=== PATIENT | male | born 1940 | race Caucasian/White ===

== ENCOUNTER → 2016-08-12 | Outpatient (CLI) | payer OTHER ==
[~2016-08-12] MED LIST: AMLO-110 PO; ATEN50TA PO; ATEN50TA8 PO; BEE500CH2 PO; CLOP1TAB15 PO; CLOP1TAB5 PO; COEN10CA4 PO; CRAN1CAP15 PO; CYAN100T6 PO; FLUT0.15 NAE; ISOS120T5 PO; ISOS60TA25 PO; LANS30CA63 PO; LEUP30IN3 IM; LISI-729 PO; MULT-599 PO; NTRGSL/4 UT; OMEG10007 PO; OYST500T47 PO; PARO10TA3 PO; PYRI100T4 PO; ROSU40TA PO
[2016-08-12 11:07] LABS: BASO % 0.8 %; BASO ABS # 0.03 K/uL (0-0.2); COMPLETE YES; EOS % 5.3 %; IG% 0.3 %; LYMPH % 19.3 %; LYMPH ABS # 0.76 K/uL (1.2-3.4); MEAN CELL VOLUME 93.2 fL (80-100); MEAN CORPUSCULAR HEMOGLOBIN 30.7 pg (25-34); MEAN PLATELET VOLUME 10.5 fL (7.4-10.4); MONO % 11.7 %; NEUT % 62.6 %; PLATELET COUNT 145 K/uL (130-400); RED BLOOD COUNT 3.97 M/uL (4.7-6.1); WHITE BLOOD COUNT 3.94 K/uL (4.8-10.8)
[2016-08-12 11:22] LABS: ESTIMATED AVERAGE GLUCOSE 163 mg/dl; HA1C FLAG Normal (Normal)
[2016-08-12 11:38] LABS: ALT/SGPT 19 U/L (12-78); BLOOD UREA NITROGEN 18 mg/dl (7-18); BUN/CREATININE RATIO 14.8 (10-20); CALCIUM 8.5 mg/dl (8.5-10.1); CARBON DIOXIDE 23 mmol/L (21-32); CHLORIDE 109 mmol/L (98-107); CHOLESTEROL 161 mg/dl (0-200); GLUCOSE 165 mg/dl (70-99); POTASSIUM 3.6 mmol/L (3.5-5.1); SODIUM 141 mmol/L (136-145)
[2016-08-12 11:48] LABS: ALB/GLOB RATIO 1.1 (0.9-2); ALKALINE PHOSPHATASE 86 U/L (45-117); AST/SGOT 15 U/L (15-37); CHOLESTEROL/HDL RATIO 3.7; HDL CHOLESTEROL 44 mg/dl; LDL CHOLESTEROL CALCULATED 86 mg/dl; PROSTATE SPECIFIC ANTIGEN < 0.010 ng/ml (0.000-4.000); THYROID STIMULATING HORMONE 0.791 uIu/ml (0.300-4.500); TRIGLYCERIDES 156 mg/dl (0-150); VERY LOW DENSITY LIPOPROT CALC 31 mg/dl
== END | disposition home or self-care (01) ==
LOC: C.LAB1850 10:24
PROVIDERS: ATTEND Internal Medicine Cardiovascular Disease
DX: I25.119 Atherosclerotic heart disease of native coronary artery with unspecified angina pectoris (principal); I10 Essential (primary) hypertension; E78.5 Hyperlipidemia, unspecified; E11.9 Type 2 diabetes mellitus without complications; C61 Malignant neoplasm of prostate

== ENCOUNTER → 2016-10-08 | Day surgery (SDC) | payer OTHER ==
[2016-09-12 14:01] VITALS: Ht 180.3 cm; Wt 86.4 kg
[~2016-10-08] VITALS: Ht 180.3 cm; Wt 86.4 kg
[~2016-10-08] MED LIST changes: +500ML BSS 0.3ML EPI 1:1000PF IRRIG ONE; +ACETAMINOPHEN 325 MG TAB PO PRN; +AMVISC PLUS 0.8ML SYRINGE INT OCU ONE; -ATEN50TA PO; +AcetaZOLAMIDE 250 MG TAB PO SCH; +BETAXOLOL HCL 0.25% OP SUSP PER DROP CHARGE OPL SCH; +BRIMONIDINE TART 0.2% OP SOLN PER DROP CHARGE ONE; +BSS FLUSH ONE; -CLOP1TAB5 PO; +ENDOCOAT 0.85ML SYRINGE INT OCU ONE; +EpINEphrine INJ 1MG/ML AMP 1 MG/ML AMP ONE; -ISOS120T5 PO; +LACTATED RINGER'S 1000ML 500 ML IV SCH; -LANS30CA63 PO; +LIDOCAINE 4% OP SOLN DROP CHARGE ONE; +LIDOCAINE 4% OP SOLN DROP CHARGE OPL SCH; +LIDOCAINE HCL 1% MPF 2 ML VIAL ONE; +METOPROLOL TARTRATE 1 MG/ML VIAL ONE; +MIDAZOLAM HCL 1 MG/ML 2ML VIAL ONE; +MIX: 4ML BSS 1ML EPI 1:1000 PF INSTIL ONE; +MOXIFLOXACIN OPH SOLN PER DROP CHARGE ONE; -MULT-599 PO; +OCUCOAT 1 ML SOLN IO ONE; +POVIDONE-IODINE OP SOLN 30 ML BTL ONE; +PROPARACAINE 0.5% OP SOLN PER DROP CHARGE OPL SCH; +PROPARACAINE 0.5% OP SOLN PER DROP CHARGE OPR SCH; +PROPARACAINE HCL 0.5% OP SOLN 15 ML BTL OPL ONE; -PYRI100T4 PO; +TOBRAMYCIN/DEXAMETHASONE OPH OINT PER APPLN CHARGE ONE
--- NOTE | 2016-10-08 08:53 | History & Physical Bridge - [place] ---
H&P Re-Evaluation Bridge Note: I have examined the patient, reviewed the History & Physical and in the interval since the performance of the History & Physical I have noted the following changes of clinical significance: No changes noted
[2016-10-08] MEDS: PHENYLEPHRINE HCL 2.5% OP SOLN PER DROP CHARGE OPL SCH ×2 (10:07→10:12)
[2016-10-08] MEDS: TROPICAMIDE 1% OP SOLN PER DROP CHARGE OPL SCH ×2 (10:08→10:13)
[2016-10-08] MEDS: CYCLOPENTOLATE HCL 1% OP SOLN PER DROP CHARGE OPL SCH ×2 (10:09→10:14)
[2016-10-08] MEDS: MOXIFLOXACIN OPH SOLN PER DROP CHARGE OPL SCH ×2 (10:10→10:20)
--- NOTE | 2016-10-08 10:56 | Discharge Instructions-SurgCtr ---
Discharge Instructions Date of Service Oct 08, 2016. Visit Reason for Visit: Cataract Left Eye Discharge Discharge Diagnosis / Problem: lens implant left eye Discharge Goals Goal(s): Improve function Activity Recommendations Activity Limitations: resume your previous activity Lifting Limitations: no more than 10 pounds Exercise/Sports Limitations: gradually increase as tolerated May Resume Sexual Activity: when tolerated Shower/Bathe: tomorrow Driving or Machine Use: resume 1 day after discharge Anesthesia . Post Anesthesia Instructions: If you have had General Anesthesia or IV Sedation: * Do not drive today. * Resume driving when surgeon permits. * Do not make important decisions or sign legal documents today. * Call surgeon for: 1. Temperature elevations greater than 101 degrees F. 2. Uncontrollable pain. 3. Excessive bleeding. 4. Persistent nausea and vomiting. 5. Medication intolerance (nausea, vomiting or rash). * For nausea and vomiting use only clear liquids such as: tea, soda, bouillon until nausea subsides, then gradually increase diet as tolerated. * If you have any concerns or questions, call your surgeon's office. If physician is unavailable and it is an emergency, call 911 or go to the nearest emergency room. . Instructions / Follow-Up Instructions / Follow-Up ACTIVITY RECOMMENDATIONS: * Light activities. * Mild irritation and blurred vision are common for the first few days. * You may walk outside, read, watch television. * Redness around the white part of the eye is common. MEDICATIONS: Resume previous medications unless instructed otherwise by your surgeon. * Take white Diamox (Acetazolamide) tablet at 1 pm today. Start all eye drops at 1 pm today: * Eye drops (today and tomorrow): Prednisone - one drop in operative eye every 3 hours while awake Ofloxacin - one drop in operative eye every 3 hours while awake SPECIAL CARE INSTRUCTIONS: * Tape plastic shield over eye to sleep at night. Call your doctor at with any concerns or problems. FOLLOW UP VISIT: Follow-up with Dr Perez at [place] office as scheduled. Diet Recommendations Home Diet: no limitations Procedures Procedures Performed: cataract extraction with lens implant Pending Studies Studies pending at discharge: no Medical Emergencies . Who to Call and When: Medical Emergencies: If at any time you feel your situation is an emergency, please call 911 immediately. . Non-Emergent Contact Non-Emergency issues call your: Invoice Clerk Call Non-Emergent contact if: your pain is not controlled [phone] . . "Provider Documentation" section prepared by Igor Perez. .
[2016-10-08 11:01] VITALS: TEMP 36.2
--- NOTE | 2016-10-08 11:02 | [facility] Operative Report ---
Operative Report Date of Service Oct 08, 2016. Operative Report 1. PREOPERATIVE DIAGNOSIS: Senile nuclear cataract, left eye. 2. POSTOPERATIVE DIAGNOSIS: Senile nuclear cataract, left eye. 3. PROCEDURE: Phacoemulsification of left cataract with posterior chamber lens implant, type [employer]ch [employer] Lomb, model MX60, power +17.5 diopters. ANESTHESIA: Local standby. SURGEON: Dr. Perez. COMPLICATIONS: None. OPERATING TIME: 10 minutes. 4. OPERATION AND FINDINGS: DESCRIPTION OF PROCEDURE: The left pupil was dilated. The anesthetic was administered using a topical technique. The left eye was prepped and draped. The patient was transported to the Femto Laser room. The pupil did not dilated well and the laser did not dock well. The Femto Laser was cancelled. A conjunctival hemorrhage was noted. The patient was transported to the operating room. A speculum was placed. A clear corneal incision was formed. The chamber was filled with Amvisc Plus and Endocoat. Epinephrine solution was used. A paracentesis was placed. A capsulorrhexis was performed. The nucleus was hydrodissected. The lens was removed with phacoemulsification. Time was 4.91 seconds. The aspiration unit was used to remove the cortex. The capsule was filled with Amvisc Plus. The lens implant was folded and placed into the capsule. The incision was hydrated. A second astigmatic incision was placed 180 degrees from the original incision at the limbus. The incisions were hydrated. The Amvisc was aspirated. The wounds were secure. The chamber was deep. The pupil was round. TobraDex ointment and Vigamox solution were placed. The speculum was removed. The patient was returned to the Recovery Room in stable condition. I attest to the content of the Intraoperative Record and any orders documented therein. Any exceptions are noted below. The scribe's documentation has been prepared in my presence, under my direction and personally reviewed by me in its entirety. I confirm that the note above accurately reflects all work, treatment, procedures, and medical decision making performed by me. I personally scribed for Igor Perez M.D. ([email or web address]) on 10/08/16 at 11:02. Electronically submitted by Ana Laura Rothman ([email or web address]).
[2016-10-08 11:25] VITALS: BP 193/83; PULSE 52; O2SAT 97
--- NOTE | 2016-10-08 11:37 | Anesthesia Progress Nt - [facility] ---
Anesthesia Post Op Note Date & Time Oct 08, 2016 at 11:35 Vital Signs Pain Intensity: 4 Vital Signs Past 12 Hours Date Time Temp Pulse Resp B/P Pulse Ox O2 Delivery O2 Flow Rate FiO2 10/08/16 11:25 52 18 203/92 97 Room Air 193/83 10/08/16 11:01 36.2 54 18 169/80 95 Room Air 10/08/16 10:41 64 16 225/101 95 10/08/16 10:36 64 16 209/109 94 10/08/16 10:32 64 16 220/102 97 10/08/16 09:57 36.4 60 24 196/83 97 Room Air Notes Mental Status: alert / awake / arousable, participated in evaluation Pt Amnestic to Procedure: No (recall as expected) Nausea / Vomiting: adequately controlled Pain: adequately controlled Airway Patency, RR, SpO2: stable & adequate BP & HR: stable & adequate Hydration State: stable & adequate Anesthetic Complications: no major complications apparent BP elevated but improved from pre-op. We did give IV metoprolol as pt took none of his anti-hypertensive meds today, including his beta roberto. Pt told to go home and take his meds and f/u w/ PCP.
== END | disposition home or self-care (01) ==
LOC: X.SURG 09:43
PROVIDERS: ATTEND Specialist
DX: H25.12 Age-related nuclear cataract, left eye (principal); Z79.899 Other long term (current) drug therapy

== ENCOUNTER → 2016-10-22 | Day surgery (SDC) | payer OTHER ==
[2016-10-21 08:49] VITALS: Ht 180.3 cm; Wt 86.4 kg
[~2016-10-22] VITALS: Ht 180.3 cm; Wt 86.4 kg
[~2016-10-22] MED LIST changes: +ATROPINE SULFATE 0.1 MG/ML 5ML SYR IV PRN; -BETAXOLOL HCL 0.25% OP SUSP PER DROP CHARGE OPL SCH; +BETAXOLOL HCL 0.25% OP SUSP PER DROP CHARGE OPR SCH; +EpHEDrine SULFATE INJ 50 MG/ML AMP IV PRN; +FENTANYL CITRATE INJ 50 MCG/1 ML 2 ML VIAL IV PRN; -LIDOCAINE 4% OP SOLN DROP CHARGE OPL SCH; +LIDOCAINE 4% OP SOLN DROP CHARGE OPR SCH; -METOPROLOL TARTRATE 1 MG/ML VIAL ONE; +ONDANSETRON INJ 2 MG/ML 2 ML VIAL IV PRN; -PROPARACAINE 0.5% OP SOLN PER DROP CHARGE OPL SCH; -PROPARACAINE HCL 0.5% OP SOLN 15 ML BTL OPL ONE
[2016-10-22] MEDS: PHENYLEPHRINE HCL 2.5% OP SOLN PER DROP CHARGE OPR SCH ×2 (07:19→07:26)
[2016-10-22] MEDS: TROPICAMIDE 1% OP SOLN PER DROP CHARGE OPR SCH ×2 (07:23→07:27)
[2016-10-22] MEDS: CYCLOPENTOLATE HCL 1% OP SOLN PER DROP CHARGE OPR SCH ×2 (07:23→07:28)
[2016-10-22] MEDS: MOXIFLOXACIN OPH SOLN PER DROP CHARGE OPR SCH ×2 (07:24→07:30)
--- NOTE | 2016-10-22 08:17 | [facility] Post Operative Brief Note ---
Immediate Operative Summary Operative Date October 22, 2016. Pre-Operative Diagnosis Cataract Right Eye - Nuclear Post-Operative Diagnosis same Procedure(s) Performed Right Cataract Phacoemulsification With Intraocular Lens Implant Surgeon Dr Perez [employer] Surgeon(s) none Estimated Blood Loss 0 Fluids (cc crystalloids) 300 Specimens none Drains none Anesthesia L/S Complication(s) None Disposition Recovery Room / PACU
--- NOTE | 2016-10-22 08:19 | Discharge Instructions-SurgCtr ---
Discharge Instructions Date of Service October 22, 2016. Visit Reason for Visit: Right Cataract Discharge Discharge Diagnosis / Problem: Pseudophakia right eye Discharge Goals Goal(s): Improve function Activity Recommendations Activity Limitations: as noted below Lifting Limitations: no more than 10 pounds Exercise/Sports Limitations: as tolerated May Resume Sexual Activity: after one week Shower/Bathe: tomorrow Driving or Machine Use: resume 1 day after discharge As noted Anesthesia . Post Anesthesia Instructions: If you have had General Anesthesia or IV Sedation: * Do not drive today. * Resume driving when surgeon permits. * Do not make important decisions or sign legal documents today. * Call surgeon for: 1. Temperature elevations greater than 101 degrees F. 2. Uncontrollable pain. 3. Excessive bleeding. 4. Persistent nausea and vomiting. 5. Medication intolerance (nausea, vomiting or rash). * For nausea and vomiting use only clear liquids such as: tea, soda, bouillon until nausea subsides, then gradually increase diet as tolerated. * If you have any concerns or questions, call your surgeon's office. If physician is unavailable and it is an emergency, call 911 or go to the nearest emergency room. . Instructions / Follow-Up Instructions / Follow-Up ACTIVITY RECOMMENDATIONS: * Light activities. * Mild irritation and blurred vision are common for the first few days. * You may walk outside, read, watch television. * Redness around the white part of the eye is common. MEDICATIONS: Resume previous medications unless instructed otherwise by your surgeon. * Take white Diamox (Acetazolamide) tablet at 1 pm today. Start all eye drops at 1 pm today: * Eye drops (today and tomorrow): Prednisone - one drop in operative eye every 3 hours while awake Ofloxacin - one drop in operative eye every 3 hours while awake SPECIAL CARE INSTRUCTIONS: * Tape plastic shield over eye to sleep at night. Call your doctor at with any concerns or problems. FOLLOW UP VISIT: Follow-up with Dr Perez at [facility] as scheduled. Diet Recommendations Home Diet: no limitations Procedures Procedures Performed: Right Cataract Phacoemulsification With Intraocular Lens Implant Pending Studies Studies pending at discharge: no Medical Emergencies . Who to Call and When: Medical Emergencies: If at any time you feel your situation is an emergency, please call 911 immediately. . Non-Emergent Contact Non-Emergency issues call your: Purchasing [employer]ship Call Non-Emergent contact if: temperature is above 101 . . "Provider Documentation" section prepared by Igor Perez. .
[2016-10-22 08:21] VITALS: BP 193/84; PULSE 56; TEMP 36.5; O2SAT 97
--- NOTE | 2016-10-22 08:39 | Anesthesia Progress Nt - [facility] ---
Anesthesia Post Op Note Date & Time October 22, 2016 at 08:39 Vital Signs Pain Intensity: 0 Vital Signs Past 12 Hours Date Time Temp Pulse Resp B/P Pulse Ox O2 Delivery O2 Flow Rate FiO2 10/22/16 08:21 36.5 56 20 193/84 97 Room Air 10/22/16 07:29 178/77 10/22/16 07:20 197/86 10/22/16 07:12 36.3 51 18 200/85 99 Room Air Notes Mental Status: alert / awake / arousable, participated in evaluation Pt Amnestic to Procedure: Yes Nausea / Vomiting: adequately controlled Pain: adequately controlled Airway Patency, RR, SpO2: stable & adequate BP & HR: stable & adequate Hydration State: stable & adequate Anesthetic Complications: no major complications apparent
--- NOTE | 2016-10-22 09:01 | OPERATIVE REPORT ---
DATE OF OPERATION: 10/22/2016 PREOPERATIVE DIAGNOSIS: Senile nuclear cataract right eye. POSTOPERATIVE DIAGNOSIS: Same. PROCEDURE: Phacoemulsification of right cataract with posterior chamber lens implant. Type: B[employer]ch [employer] Lomb model MX60, power +17.50. ANESTHESIA: Local standby using 4% topical lidocaine. SURGEON: Dr. Perez. COMPLICATIONS: None. OPERATING TIME: 10 minutes. No blood loss. The patient was identified. The right pupil was dilated. The right eye was prepped and draped. A speculum was placed. A paracentesis was placed. The chamber was filled with Amvisc Plus and EndoCoat. A temporal clear corneal incision was formed. A capsulorrhexis was performed. The nucleus was hydrodissected. The lens was removed with phacoemulsification. Time was 5.08. The cortex was aspirated. The capsule was filled with Amvisc. The lens implant was inspected and folded and placed into the capsule. A second astigmatic incision was placed at the limbus 180 degrees apart from the original. The Amvisc was aspirated. The incisions were hydrated. The wounds were secure. The chamber was deep. The pupil was round. Brimonidine, TobraDex and Vigamox were placed. The speculum was removed. The eye did not require a patch. The patient was returned to the recovery room in good condition having tolerated the procedure well. I attest to the content of the Intraoperative Record and any orders documented therein. Any exceptions are noted below. MTDD
== END | disposition home or self-care (01) ==
LOC: X.SURG 06:53
PROVIDERS: ATTEND Specialist
DX: H25.11 Age-related nuclear cataract, right eye (principal)

== ENCOUNTER → 2017-03-30 | Outpatient (CLI) | payer OTHER ==
[~2017-03-30] MED LIST changes: -500ML BSS 0.3ML EPI 1:1000PF IRRIG ONE; -ACETAMINOPHEN 325 MG TAB PO PRN; -AMVISC PLUS 0.8ML SYRINGE INT OCU ONE; -ATROPINE SULFATE 0.1 MG/ML 5ML SYR IV PRN; -AcetaZOLAMIDE 250 MG TAB PO SCH; -BETAXOLOL HCL 0.25% OP SUSP PER DROP CHARGE OPR SCH; -BRIMONIDINE TART 0.2% OP SOLN PER DROP CHARGE ONE; -BSS FLUSH ONE; -ENDOCOAT 0.85ML SYRINGE INT OCU ONE; -EpHEDrine SULFATE INJ 50 MG/ML AMP IV PRN; -EpINEphrine INJ 1MG/ML AMP 1 MG/ML AMP ONE; -FENTANYL CITRATE INJ 50 MCG/1 ML 2 ML VIAL IV PRN; -LACTATED RINGER'S 1000ML 500 ML IV SCH; -LIDOCAINE 4% OP SOLN DROP CHARGE ONE; -LIDOCAINE 4% OP SOLN DROP CHARGE OPR SCH; -LIDOCAINE HCL 1% MPF 2 ML VIAL ONE; -MIDAZOLAM HCL 1 MG/ML 2ML VIAL ONE; -MIX: 4ML BSS 1ML EPI 1:1000 PF INSTIL ONE; -MOXIFLOXACIN OPH SOLN PER DROP CHARGE ONE; -OCUCOAT 1 ML SOLN IO ONE; -ONDANSETRON INJ 2 MG/ML 2 ML VIAL IV PRN; -POVIDONE-IODINE OP SOLN 30 ML BTL ONE; -PROPARACAINE 0.5% OP SOLN PER DROP CHARGE OPR SCH; -TOBRAMYCIN/DEXAMETHASONE OPH OINT PER APPLN CHARGE ONE
[2017-03-30 09:45] LABS: HEMATOCRIT 38.1 % (42-52); MEAN CELL VOLUME 91.4 fL (80-100); MEAN CORPUSCULAR HGB CONC 32.8 g/dl (32-36); MEAN PLATELET VOLUME 10.3 fL (7.4-10.4); PLATELET COUNT 154 K/uL (130-400); RED BLOOD COUNT 4.17 M/uL (4.7-6.1); WHITE BLOOD COUNT 3.86 K/uL (4.8-10.8)
[2017-03-30 10:09] LABS: ESTIMATED AVERAGE GLUCOSE 203 mg/dl; HA1C FLAG Normal (Normal)
[2017-03-30 10:16] LABS: ALT/SGPT 27 U/L (12-78); AST/SGOT 17 U/L (15-37); BLOOD UREA NITROGEN 21 mg/dl (7-18); BUN/CREATININE RATIO 13.9 (10-20); CALCIUM 8.6 mg/dl (8.5-10.1); CARBON DIOXIDE 25 mmol/L (21-32); CHLORIDE 108 mmol/L (98-107); CREATININE 1.51 mg/dl (0.60-1.40); GLUCOSE 166 mg/dl (70-99); POTASSIUM 3.8 mmol/L (3.5-5.1); SODIUM 141 mmol/L (136-145)
[2017-03-30 10:18] LABS: ALKALINE PHOSPHATASE 101 U/L (45-117)
== END | disposition home or self-care (01) ==
LOC: C.LAB1850 08:44
PROVIDERS: ATTEND Family Medicine
DX: E11.9 Type 2 diabetes mellitus without complications (principal)

== ENCOUNTER → 2017-10-22 | Outpatient (CLI) | payer OTHER ==
[2017-10-22 09:34] LABS: BASO % 0.8 %; BASO ABS # 0.03 K/uL (0-0.2); EOS % 7.7 %; EOS ABS # 0.28 K/uL (0-0.5); HEMATOCRIT 38.2 % (42-52); HEMOGLOBIN 12.2 g/dL (14.0-18.0); IG# 0.02 K/uL (0.00-0.02); LYMPH % 25.7 %; LYMPH ABS # 0.94 K/uL (1.2-3.4); MEAN CELL VOLUME 91.8 fL (80-100); MEAN CORPUSCULAR HEMOGLOBIN 29.3 pg (25-34); MEAN CORPUSCULAR HGB CONC 31.9 g/dl (32-36); MEAN PLATELET VOLUME 10.1 fL (7.4-10.4); MONO % 16.4 %; NEUT % 48.9 %; NEUT ABS # 1.79 K/uL (1.4-6.5); PLATELET COUNT 146 K/uL (130-400); RED CELL DISTRIBUTION WIDTH CV 14.7 % (11.5-14.5); RED CELL DISTRIBUTION WIDTH SD 49.9 fL (36.4-46.3); WHITE BLOOD COUNT 3.66 K/uL (4.8-10.8)
[2017-10-22 09:53] LABS: HEMOGLOBIN A1C 7.4 % (4.5-5.6)
[2017-10-22 10:06] LABS: ALBUMIN 3.2 gm/dl (3.4-5.0); ALT/SGPT 33 U/L (12-78); AST/SGOT 26 U/L (15-37); BLOOD UREA NITROGEN 23 mg/dl (7-18); CARBON DIOXIDE 24 mmol/L (21-32); CREATININE 1.36 mg/dl (0.60-1.40); GLUCOSE 165 mg/dl (70-99); SODIUM 140 mmol/L (136-145)
[2017-10-22 10:17] LABS: ALKALINE PHOSPHATASE 104 U/L (45-117); CHOLESTEROL 128 mg/dl (0-200); LDL CHOLESTEROL CALCULATED 63 mg/dl; TOTAL PROTEIN 6.8 gm/dl (6.4-8.2)
== END | disposition home or self-care (01) ==
LOC: C.LAB1850 08:07
PROVIDERS: ATTEND Internal Medicine Cardiovascular Disease
DX: C61 Malignant neoplasm of prostate (principal); I10 Essential (primary) hypertension; E11.9 Type 2 diabetes mellitus without complications

== ENCOUNTER 2021-03-10 12:52 | Inpatient (IN) ==
[2021-03-10] MEDS ORDERED: SODIUM CHLORIDE 0.9% 1000ML 1,000 ML IV ONE (14:05)
[2021-03-10] MEDS ORDERED: IPRATROPIUM BROMIDE/ALBUTEROL respimat INH INH STA (14:06)
[2021-03-10] MEDS ORDERED: guaiFENesin 600 MG TABCR PO STA (14:06)
[2021-03-10] MEDS ORDERED: dexAMETHasone**PF** 10 MG/ML VIAL IV ONE (14:07)
--- NOTE | 2021-03-10 14:32 | XRay Report ---
SINGLE VIEW CHEST CLINICAL HISTORY: Atypical chest pain. FINDINGS: An AP, portable, upright chest radiograph is compared to study dated 10/20/2015. The the barbara ent is status post midline sternotomy. The heart is enlarged noting atherosclerotic calcification of the thoracic aorta. There is pulmonary vascular congestion. There are bilateral airspace opacities wi th a lower lobe predominance. Chronic elevation of the right hemidiaphragm is similar to previous. No large pleural effusion or pneumothorax is seen. The skeletal structures are osteopenic. The bony tho rax is grossly intact. Calcific tendinopathy is noted in the right shoulder. IMPRESSION: 1. Cardiomegaly with pulmonary vascular congestion. 2. Bilateral airspace opacities could represent pulmonary edema and/or multifocal pneumonia. Clinical correlation will be required and radiographic follow-up to resolution is recommended. ACT 112: Negative or not required by law. Electronically signed by: Chan Brantley M.D. 03/10/2021 2:31 PM
[2021-03-10 14:38] LABS: Alanine Aminotransferase 46 U/L (12-78); Albumin Level 2.9 gm/dl (3.4-5.0); Aspartate Aminotransferase 58 U/L (15-37); BUN Creatinine Ratio 13.1 (10-20); Bilirubin Direct 0.2 mg/dl (0-0.2); Blood Urea Nitrogen 25 mg/dl (7-18); Calcium 7.9 mg/dl (8.5-10.1); Carbon Dioxide 21 mmol/L (21-32); Chloride 97 mmol/L (98-107); Creatinine Clr Calc Pharmacy 34.3 ml/min; Est GFR (African American) 36.3 ml/min; Est GFR (Non-African American) 31.3 ml/min; Glucose 170 mg/dl (70-99); Lipase 190 U/L (73-393); Magnesium 1.8 mg/dl (1.8-2.4); Sodium 128 mmol/L (136-145)
[2021-03-10 14:41] LABS: Albumin Globulin Ratio 0.7 (0.9-2); Alkaline Phosphatase 58 U/L (45-117); Bilirubin,Total 0.5 mg/dl (0.2-1); Globulin 3.9 gm/dl (2.5-4.0); NT Pro B Type Natriuretic Pept 356 pg/ml (0-1800); Phosphorus 3.3 mg/dl (2.5-4.9); Total Protein 6.8 gm/dl (6.4-8.2); Troponin I < 0.015 ng/ml (0-0.045)
[2021-03-10 14:54] LABS: Basophils # (auto) 0.01 K/uL (0-0.2); Basophils % (auto) 0.2 %; Echinocytes 1+; Hematocrit (blood only) 40.1 % (42-52); Hemoglobin 13.1 g/dL (14.0-18.0); Lymphocytes # (auto) 0.45 K/uL (1.2-3.4); Lymphocytes % (auto) 8.4 %; Mean Corpuscular Hemoglobin 31.3 pg (25-34); Mean Corpuscular Hgb Conc 32.7 g/dL (32-36); Mean Corpuscular Volume 95.7 fL (80-100); Monocytes # (auto) 0.48 K/uL (0.11-0.59); Neutrophils # (auto) 4.41 K/uL (1.4-6.5); Neutrophils % (auto) 82.4 %; Platelet Count 98 K/uL (130-400); Platelet Estimate Decreased (Normal); RDW Coefficient of Variation 14.4 % (11.5-14.5); RDW Standard Deviation 50.9 fL (36.4-46.3); Red Blood Count 4.19 M/uL (4.7-6.1); White Blood Count 5.35 K/uL (4.8-10.8)
--- NOTE | 2021-03-10 17:08 | Emergency Department Note ---
Impression & Plan Pneumonia due to COVID-19 virus, Hypoxia, Hyponatremia, CKD (chronic kidney disease) (Ruled Out): Heart murmur ED Provider Note NAME: SHAYLA MONTERROSO AGE: 80 SEX: M ARRIVES VIA: Walk-In INFORMANT: Patient, ED PROVIDER(S): Kel Aguero MD CHIEF COMPLAINT: Shortness of breath, cough PLAN: Disposition: Admit MEDICAL DECISION MAKING: The patient is a pleasant 80-year-old gentleman with a past medical history of CAD status post CABG, aortic stenosis, who presents to the emergency department accompanied by his for worsening cough, congestion shortness of breath over the past 4 days with body aches and feverishness. He reports he has felt a change in taste and smell. He has had a decreased appetite and oral intake related to this. He denies any known COVID-19 exposures. The patient and his are both not vaccinated. On arrival the patient is uncomfortable but no acute distress, afebrile with O2 saturation 88% on room air with mild increased work of breathing and vital signs otherwise stable. Plan placement on 2 L nasal cannula O2 saturation improved to low-mid 90s. Patient appears clinically dry. He has scant intermittent wheeze and rhonchi. EKG negative for acute cardiopulmonary process. Chest x-ray consistent with multifocal pneumonia. WBC 5.3 with lymphopenia to 0.45. H/H similar to prior. Platelets 98K, nonspecific. Creatinine 1.9 approximate to prior range of values. Sodium 128 with glucose 170. Chemistry without metabolic acidosis. AST 58 and ALT is otherwise unremarkable. Troponin negative/undetectable. BNP within limits. Lipase is not elevated. The patient's COVID-19 PCR was positive. Given the patient's COVID-19 pneumonia with hypoxia the patient and his are in agreement with plan for admission. He was treated with IV fluids, guaifenesin, dexamethasone, Combivent and and reported some improvement. Case was discussed with [place]. Gipson, [facility] [place], who will evaluate the patient for admission. Triage Nursing notes reviewed and agree them. Prior medical records reviewed Vital Signs: reviewed and remarkable for hypoxia. Differential diagnosis: Reactive airway disease, pneumonia, pneumothorax, COPD, CHF, infections, cardiac ischemia, pulmonary embolism, musculoskeletal, gastrointestinal, as well as other pathologies. ER treatment provided: See below. Diagnostics interpreted by me: ECG: Normal sinus rhythm, 66 bpm, no ectopy, no overt ST elevation or depression, QTC 425, QRS 94. Cardiac Monitoring: An order for continuous cardiac monitoring was placed and demonstrated Normal sinus rhythm, 66 bpm, no ectopy. Laboratory studies: See below Imaging studies: See below Consultation(s): Case was discussed with Dr. Gipson, [facility] [place], who will evaluate the patient for admission.one HPI: The patient is a pleasant 80-year-old gentleman with a past medical history of CAD status post CABG, aortic stenosis, who presents to the emergency department accompanied by his for worsening cough, congestion shortness of breath over the past 4 days with body aches and feverishness. He reports he has felt a change in taste and smell. He has had a decreased appetite and oral intake related to this. He denies any known COVID-19 exposures. The patient and his are both not vaccinated. ROS: See above HPI for pertinent positives & negatives. A total of 10 systems reviewed and were otherwise negative. PAST MEDICAL HISTORY:See Below PAST SURGICAL HISTORY:See Below FAMILY HISTORY:See Below SOCIAL HISTORY:See Below HOME MEDICATIONS:See Below ALLERGIES:See Below VITALS:See Below PHYSICAL EXAMINATION: GENERAL: Awake, alert, uncomfortable-appearing, in no distress HENT: Normocephalic, atraumatic. Oropharynx dry mucous membranes. EYES: Normal conjunctiva. Sclera non-icteric. NECK: Supple. No nuchal rigidity. FROM. No JVD. RESPIRATORY: Scant intermittent wheeze and rhonchi. Mildly dyspneic in no acute distress. CARDIAC: Regular rate, normal rhythm. Extremities warm and well perfused. Pulses equal. ABDOMEN: Soft, non-distended. No tenderness to palpation. No rebound or guarding. No masses. RECTAL: Deferred. MUSCULOSKELETAL: Chest examination reveals no tenderness. The back is symmetrical on inspection without obvious abnormality. There is no CVA tenderness to palpation. No joint edema. LOWER EXTREMITIES: Calves are equal size bilaterally and non-tender. No edema. No discoloration. NEURO: Normal sensorium. No sensory or motor deficits noted. SKIN: No rash or jaundice noted. Kel Aguero MD Past Med/Surg History Medical History Anemia Coronary artery disease Heart murmur Prostate cancer (03/15/15) "DIAGNOSIS: Prostate, adenocarcinoma, dmitriy 4 + 5, PSA 21.0, [id number], group IIB Rising PSA, pretreatment PSA 24.7 Status post ultrasound-guided biopsies 03/15/2015 revealing adenocarcinoma the prostate Dmitriy 4+3, 4+4, and 4+5 Prostate volume 21.9 Prostate density 1.127 Hormone suppression Status post completion of radiation therapy utilizing IMRT/IGRT completed 09/18/2015 received 8100 cGy" On 04/13/15 07:39 Veeral Guerrero wrote "DIAGNOSIS: Prostate, adenocarcinoma, dmitriy 4 + 5, PSA 21.0, [id number], group IIB Rising PSA, pretreatment PSA 24.7 Status post ultrasound-guided biopsies 03/15/2015 revealing adenocarcinoma the prostate Dmitriy 4+3, 4+4, and 4+5 Prostate volume 21.9 Prostate density 1.127" On 04/13/15 07:36 Veeral Cesar wrote "DIAGNOSIS: Prostate, adenocarcinoma, dmitriy 4 + 5, PSA 21.7, [id number], group IIB Rising PSA, pretreatment PSA 24.7 Status post ultrasound-guided biopsies 03/15/2015 revealing adenocarcinoma the prostate [place] 4+3, 4+4, and 4+5 Prostate volume 21.9 Prostate density 1.127" On 04/12/15 11:32 Liset Huynh wrote "Rising PSA, pretreatment PSA 24.7 Status post ultrasound-guided biopsies 03/15/2015 revealing adenocarcinoma the prostate [place] 4+3, 4+4, and 4+5 Prostate volume 21.9 Prostate density 1.127" Surgical History Hx of CABG History of coronary artery bypass graft surgery x5 vessels November 1996 at [facility]: BURKETT-LAD; SVG-PDA; SVG-ramus; SVG-left circumflex OM-1/OM-2. Acute coronary syndrome November 01, [address] depressions in the anterolateral leads. Cardiac catheterization with total ostial LAD stenosis, total proximal RCA stenosis, severe distal left main stenosis involving the origin of the left circumflex coronary artery, moderate proximal left circumflex stenosis, patent vein graft to PDA, patent internal mammary graft to LAD. Occluded vein graft to left circumflex marginal arteries. No evidence of graft to ramus. 2.5 x 12 mm and 2.5 x 8 mm drug eluting stents deployed in the left main into proximal left circumflex. Post dilated with 3 mm balloon. Residual stenosis 0% Family History Father Coronary heart disease Mother Breast cancer Social History Smoking Status: Never smoker Hx Alcohol Use: No Hx Substance Use: No Preferred Language: Romanian Communication Ability: Effective Vp [employer] Required: No Beliefs That Will Affect Care: None marital status: Current Living Situation: Spouse current occupational status: employed Other Information That Helps Us Care for You: No Feels Safe at Home: Yes Safety Concerns: Feels Safe At This Time Assistive Devices: None Allergies Allergies Allergy/AdvReac Type Severity Reaction Status Date / Time No Known Allergies Allergy Unknown Verified 03/10/21 14:29 Home Meds Home Medications Medication Instructions Recorded Confirmed fluticasone propionate 50 1 sprays INTRANASAL [facility] 02/07/19 03/10/21 mcg/actuation nasal spray,suspension amlodipine 2.5 mg tablet 2.5 mg PO [facility] 03/10/21 03/10/21 ascorbic acid (vitamin C) 500 mg 500 mg PO [facility] 03/10/21 03/10/21 tablet (Vitamin C) atenolol 50 mg tablet 50 mg PO [facility] 03/10/21 03/10/21 clopidogrel 75 mg tablet 75 mg PO [facility] 03/10/21 03/10/21 isosorbide mononitrate 120 mg 120 mg PO [facility] 03/10/21 03/10/21 tablet,extended release 24 hr rosuvastatin 40 mg tablet 40 mg PO [facility] 03/10/21 03/10/21 vitamin E 200 unit capsule 200 unit PO [facility] 03/10/21 03/10/21 Previous Rx's Medication Instructions Recorded nitroglycerin 0.4 mg sublingual 0.4 mg SUBLINGUAL UD PRN #25 tab 06/20/20 tablet ranolazine 500 mg tablet,extended 500 mg PO BID #180 tab 12/17/20 release,12 hr Results & Data (ED) Vital Signs Vital Signs - 24 hr 03/10/21 12:53 03/10/21 13:20 03/10/21 13:50 Temperature 37.5 C Temperature Source Temporal Artery Scan Pulse Rate 66 64 Pulse Rate from SpO2 Sensor 64 Respiratory Rate 18 36 H Respiratory Effort / Characteristics Short of Breath Short of Breath Respiratory Depth Normal Respiratory Pattern Regular Blood Pressure 81/49 L 129/58 L Blood Pressure Mean 59 81 Blood Pressure Position Sitting Pulse Oximetry 98 88 L 95 Oxygen Delivery Method Nasal Cannula Room Air Oxygen Flow Rate Sepsis Recent Fever Within 48 Hours No Sepsis New/Unexplained Change in Mental Status N/A Sepsis Action Taken by Nursing No Action Required 03/10/21 14:00 03/10/21 14:01 03/10/21 14:10 Temperature Temperature Source Pulse Rate 66 65 Pulse Rate from SpO2 Sensor 66 64 Respiratory Rate 35 H 27 H Respiratory Effort / Characteristics Respiratory Depth Respiratory Pattern Blood Pressure 129/63 122/56 L Blood Pressure Mean 85 78 Blood Pressure Position Pulse Oximetry 96 94 95 Oxygen Delivery Method Nasal Cannula Oxygen Flow Rate 2 Sepsis Recent Fever Within 48 Hours Sepsis New/Unexplained Change in Mental Status Sepsis Action Taken by Nursing 03/10/21 14:20 03/10/21 14:30 03/10/21 14:40 Temperature Temperature Source Pulse Rate 65 66 64 Pulse Rate from SpO2 Sensor 65 66 64 Respiratory Rate 27 H 29 H 30 H Respiratory Effort / Characteristics Respiratory Depth Respiratory Pattern Blood Pressure 109/51 L 100/64 110/56 L Blood Pressure Mean 70 76 74 Blood Pressure Position Pulse Oximetry 92 95 95 Oxygen Delivery Method Oxygen Flow Rate Sepsis Recent Fever Within 48 Hours Sepsis New/Unexplained Change in Mental Status Sepsis Action Taken by Nursing 03/10/21 14:50 03/10/21 15:00 03/10/21 15:10 Temperature Temperature Source Pulse Rate 65 65 64 Pulse Rate from SpO2 Sensor 65 65 64 Respiratory Rate 31 H 32 H 32 H Respiratory Effort / Characteristics Respiratory Depth Respiratory Pattern Blood Pressure 112/57 L 108/56 L 114/55 L Blood Pressure Mean 75 73 74 Blood Pressure Position Pulse Oximetry 95 95 95 Oxygen Delivery Method Oxygen Flow Rate Sepsis Recent Fever Within 48 Hours Sepsis New/Unexplained Change in Mental Status Sepsis Action Taken by Nursing 03/10/21 15:20 03/10/21 15:30 03/10/21 15:40 Temperature Temperature Source Pulse Rate 64 64 63 Pulse Rate from SpO2 Sensor 64 64 63 Respiratory Rate 35 H 30 H 28 H Respiratory Effort / Characteristics Respiratory Depth Respiratory Pattern Blood Pressure 111/60 102/58 L 107/49 L Blood Pressure Mean 77 72 68 Blood Pressure Position Pulse Oximetry 96 92 93 Oxygen Delivery Method Oxygen Flow Rate Sepsis Recent Fever Within 48 Hours Sepsis New/Unexplained Change in Mental Status Sepsis Action Taken by Nursing 03/10/21 15:50 03/10/21 16:00 03/10/21 16:10 Temperature Temperature Source Pulse Rate 63 62 61 Pulse Rate from SpO2 Sensor 62 62 61 Respiratory Rate 29 H 26 H 26 H Respiratory Effort / Characteristics Respiratory Depth Respiratory Pattern Blood Pressure 108/54 L 107/56 L 103/54 L Blood Pressure Mean 72 73 70 Blood Pressure Position Pulse Oximetry 93 93 94 Oxygen Delivery Method Oxygen Flow Rate Sepsis Recent Fever Within 48 Hours Sepsis New/Unexplained Change in Mental Status Sepsis Action Taken by Nursing 03/10/21 16:20 03/10/21 16:30 03/10/21 16:40 Temperature Temperature Source Pulse Rate 63 64 62 Pulse Rate from SpO2 Sensor 62 64 62 Respiratory Rate 24 32 H 27 H Respiratory Effort / Characteristics Respiratory Depth Respiratory Pattern Blood Pressure 103/52 L 110/55 L 106/57 L Blood Pressure Mean 69 73 73 Blood Pressure Position Pulse Oximetry 93 93 92 Oxygen Delivery Method Oxygen Flow Rate Sepsis Recent Fever Within 48 Hours Sepsis New/Unexplained Change in Mental Status Sepsis Action Taken by Nursing 03/10/21 16:50 03/10/21 17:00 03/10/21 17:10 Temperature Temperature Source Pulse Rate 63 62 61 Pulse Rate from SpO2 Sensor 64 62 61 Respiratory Rate 35 H 27 H 27 H Respiratory Effort / Characteristics Respiratory Depth Respiratory Pattern Blood Pressure 109/58 L 106/59 L 108/57 L Blood Pressure Mean 75 74 74 Blood Pressure Position Pulse Oximetry 92 94 94 Oxygen Delivery Method Oxygen Flow Rate Sepsis Recent Fever Within 48 Hours Sepsis New/Unexplained Change in Mental Status Sepsis Action Taken by Nursing 03/10/21 17:20 Temperature Temperature Source Pulse Rate 61 Pulse Rate from SpO2 Sensor 61 Respiratory Rate 27 H Respiratory Effort / Characteristics Respiratory Depth Respiratory Pattern Blood Pressure 113/58 L Blood Pressure Mean 76 Blood Pressure Position Pulse Oximetry 95 Oxygen Delivery Method Oxygen Flow Rate Sepsis Recent Fever Within 48 Hours Sepsis New/Unexplained Change in Mental Status Sepsis Action Taken by Nursing Laboratory Data Attestation: I reviewed the patient's lab results. Result diagrams: 03/10/21 13:40 03/10/21 13:40 Lab Results 03/10/21 03/10/21 03/10/21 Range/Units 13:40 13:40 13:40 WBC 5.35 (4.8-10.8) K/uL RBC 4.19 L (4.7-6.1) M/uL Hgb 13.1 L (14.0-18.0) g/dL Hct 40.1 L (42-52) % MCV 95.7 (80-100) fL MCH 31.3 (25-34) pg MCHC 32.7 (32-36) g/dL RDW Std Deviation 50.9 H (36.4-46.3) fL RDW Coeff of [place] 14.4 (11.5-14.5) % Plt Count 98 L (130-400) K/uL MPV 11.0 H (7.4-10.4) fL Immature Gran % (Auto) 0.0 % Neut % (Auto) 82.4 % Lymph % (Auto) 8.4 % [place] % (Auto) 9.0 % Eos % (Auto) 0.0 % Baso % (Auto) 0.2 % Neut # (Auto) 4.41 (1.4-6.5) K/uL Lymph # (Auto) 0.45 L (1.2-3.4) K/uL [place] # (Auto) 0.48 (0.11-0.59) K/uL Eos # (Auto) 0.00 (0-0.5) K/uL Baso # (Auto) 0.01 (0-0.2) K/uL Immature Gran # (Auto) 0.00 (0.00-0.02) K/uL Platelet Estimate Decreased L (Normal) Echinocytes 1+ Sodium 128 L (136-145) mmol/L Potassium 4.0 (3.5-5.1) mmol/L Chloride 97 L (98-107) mmol/L Carbon Dioxide 21 (21-32) mmol/L Anion Gap 10.0 (3-11) BUN 25 H (7-18) mg/dl Creatinine 1.94 H (0.6-1.4) mg/dl Est Cr Clr Drug Dosing 34.3 ml/min Est GFR ( Amer) 36.3 ml/min Est GFR (Non-Af Amer) 31.3 ml/min BUN/Creatinine Ratio 13.1 (10-20) Glucose 170 H (70-99) mg/dl Osmolality 278 L (280-300) mOsm/kg Calcium 7.9 L (8.5-10.1) mg/dl Phosphorus 3.3 (2.5-4.9) mg/dl Magnesium 1.8 (1.8-2.4) mg/dl Total Bilirubin 0.5 (0.2-1) mg/dl Direct Bilirubin 0.2 (0-0.2) mg/dl AST 58 H (15-37) U/L ALT 46 (12-78) U/L Alkaline Phosphatase 58 (45-117) U/L Troponin I < 0.015 (0-0.045) ng/ml NT-Pro-B Natriuret Pep 356 (0-1800) pg/ml Total Protein 6.8 (6.4-8.2) gm/dl Albumin 2.9 L (3.4-5.0) gm/dl Globulin 3.9 (2.5-4.0) gm/dl Albumin/Globulin Ratio 0.7 L (0.9-2) Lipase 190 (73-393) U/L COVID-19 Eval Order SARS-CoV-2 (PCR) (Negative) 03/10/21 03/10/21 Range/Units 14:30 14:30 WBC (4.8-10.8) K/uL RBC (4.7-6.1) M/uL Hgb (14.0-18.0) g/dL Hct (42-52) % MCV (80-100) fL MCH (25-34) pg MCHC (32-36) g/dL RDW Std Deviation (36.4-46.3) fL RDW Coeff of [place] (11.5-14.5) % Plt Count (130-400) K/uL MPV (7.4-10.4) fL Immature Gran % (Auto) % Neut % (Auto) % Lymph % (Auto) % [place] % (Auto) % Eos % (Auto) % Baso % (Auto) % Neut # (Auto) (1.4-6.5) K/uL Lymph # (Auto) (1.2-3.4) K/uL [place] # (Auto) (0.11-0.59) K/uL Eos # (Auto) (0-0.5) K/uL Baso # (Auto) (0-0.2) K/uL Immature Gran # (Auto) (0.00-0.02) K/uL Platelet Estimate (Normal) Echinocytes Sodium (136-145) mmol/L Potassium (3.5-5.1) mmol/L Chloride (98-107) mmol/L Carbon Dioxide (21-32) mmol/L Anion Gap (3-11) BUN (7-18) mg/dl Creatinine (0.6-1.4) mg/dl Est Cr Clr Drug Dosing ml/min Est GFR ( Amer) ml/min Est GFR (Non-Af Amer) ml/min BUN/Creatinine Ratio (10-20) Glucose (70-99) mg/dl Osmolality (280-300) mOsm/kg Calcium (8.5-10.1) mg/dl Phosphorus (2.5-4.9) mg/dl Magnesium (1.8-2.4) mg/dl Total Bilirubin (0.2-1) mg/dl Direct Bilirubin (0-0.2) mg/dl AST (15-37) U/L ALT (12-78) U/L Alkaline Phosphatase (45-117) U/L Troponin I (0-0.045) ng/ml NT-Pro-B Natriuret Pep (0-1800) pg/ml Total Protein (6.4-8.2) gm/dl Albumin (3.4-5.0) gm/dl Globulin (2.5-4.0) gm/dl Albumin/Globulin Ratio (0.9-2) Lipase (73-393) U/L COVID-19 Eval Order Covid19 at [facility] SARS-CoV-2 (PCR) POSITIVE A* (Negative) Administered Medications Enoxaparin Sodium (Enoxaparin Inj 60 Mg/0.6 Ml Syr) 50 mg SQ Q12H APARNA Stop: 04/09/21 19:44 Last Admin: 03/10/21 20:33 Dose: 50 mg Documented by: [id number] Ranolazine (Ranolazine 500 Mg Er Tab) 500 mg PO BID APARNA Stop: 04/09/21 20:59 Last Admin: 03/10/21 20:33 Dose: 500 mg Documented by: [id number] Sodium Chloride (Sodium Chloride 0.9% 10ml Flush) 30 ml IV Q24H APARNA Stop: 03/13/21 20:01 Last Admin: 03/10/21 23:05 Dose: 30 ml Documented by: [id number] Discontinued Medications Albuterol (Ipratropium [place]/Albuterol Respimat Inh) 2 puffs INH NOW STA Stop: 03/10/21 14:07 Last Admin: 03/10/21 14:29 Dose: 2 puffs Documented by: [id number] Dexamethasone Sodium Phosphate (DexamethasonePf 10 Mg/Ml Vial) 10 mg IV NOW ONE Stop: 03/10/21 14:08 Last Admin: 03/10/21 14:27 Dose: 10 mg Documented by: [id number] Furosemide (Furosemide 40 Mg/4 Ml Vial) 10 mg IV ONE ONE Stop: 03/10/21 19:10 Last Admin: 03/10/21 20:40 Dose: 10 mg Documented by: [id number] Guaifenesin (Guaifenesin 600 Mg Tabcr) 600 mg PO NOW STA Stop: 03/10/21 14:07 Last Admin: 03/10/21 14:26 Dose: 600 mg Documented by: [id number] Sodium Chloride (Nss 1000ml) 1,000 mls @ 999 mls/hr IV .Q1H1M ONE Stop: 03/10/21 15:05 Last Infusion: 03/10/21 15:32 Dose: 0 mls/hr Documented by: [id number] Admin: 03/10/21 14:26 Dose: 999 mls/hr Documented by: [id number] Remdesivir 200 mg/ Sodium (Chloride) 250 mls @ 125 mls/hr IV ONE STA; Protocol Stop: 03/10/21 19:29 Last Infusion: 03/10/21 23:05 Dose: 0 mls/hr Documented by: [id number] Admin: 03/10/21 20:32 Dose: 125 mls/hr Documented by: [id number] Imaging Data Radiologist's Impression: Chest X-Ray 03/10/21 14:01 SINGLE VIEW CHEST CLINICAL HISTORY: Atypical chest pain. FINDINGS: An AP, portable, upright chest radiograph is compared to study dated 10/20/2015. The the patient is status post midline sternotomy. The heart is enlarged noting atherosclerotic calcification of the thoracic aorta. There is pulmonary vascular congestion. There are bilateral airspace opacities with a lower lobe predominance. Chronic elevation of the right hemidiaphragm is similar to previous. No large pleural effusion or pneumothorax is seen. The skeletal structures are osteopenic. The bony thorax is grossly intact. Calcific tendinopathy is noted in the right shoulder. IMPRESSION: 1. Cardiomegaly with pulmonary vascular congestion. 2. Bilateral airspace opacities could represent pulmonary edema and/or multifocal pneumonia. Clinical correlation will be required and radiographic follow-up to resolution is recommended. ACT 112: Negative or not required by law. Electronically signed by: Chan Brantley M.D. 03/10/2021 2:31 PM Discharge Plan Visit Data Chief Complaint: Shortness of Breath/Dyspnea Stated Complaint: COUGH, SOB ED Provider: Kel Aguero Discharge Problem: Pneumonia due to COVID-19 virus, Hypoxia, Hyponatremia, CKD (chronic kidney disease) Discharge Problem: (Ruled Out): Heart murmur Patient Disposition: Admitted As Inpatient Discharge Instructions Interventions: ED Discharge Assessment Last Done: 03/10/21 18:21
--- NOTE | 2021-03-10 17:23 | History & Physical Report ---
Date of Service March 10, 2021 Assessment & Plan (1) Pneumonia due to COVID-19 virus: Plan: Patient presents with acute respiratory failure with hypoxia secondary to Covid pneumonia. O2 sats are 88% respiration rate was as high as 36 he improved symptomatically with supple pulmonal oxygen. He was brought in our facility for remdesivir and dexamethasone, a CRP will be checked in the morning. Patient is not vaccinated. Pt first had symptoms 03/07/21, he has had diarrhea now resolved, and alteration of taste and smell currently. I personally told the to self quarantine and consider Covid vaccination Patient is was encouraged to prone while he is in the hospital (2) Presence of drug-eluting stent in left circumflex coronary artery: Plan: Patient with known history of coronary artery disease with both a CABG and drug- eluting stents. He typically has some stable angina but has not taken any prn nitrates recently. He maintains on atenolol 50, Plavix 75, isosorbide 120, Ranexa 500 twice daily and on rosuvastatin max dose 40 Patient also and amlodipine 2.5 (3) Hyponatremia: Plan: Could be SIADH serum osmolality is low, will fluid restrict check a urine sodium and follow sodium levels at this time his oxygen requirement is low and he has CKD3 with Cr about 1.94. (4) Moderate aortic stenosis: Plan: has shrill murmur on exam, described as mild to moderate on echocardiogram of 2019 at that time he has preserved LV systolic function with basilar inferior hypokinesis with LVH (5) Prostate cancer: (6) Dyslipidemia: Plan: Is on rosuvastatin (7) DVT prophylaxis: Plan: Will be on Covid based DVT prevention 0.5 mg/kg subcu every 12 History of Present Illness Primary Care Provider: Corky Alves MD 80-year-old male presents to our facility with hypoxic respiratory failure and Covid positive status with pneumonia changes on chest x-ray. Patient symptoms first began on March 07. He does have alterations of taste or smell and did have 2 days of diarrhea now resolving. He and his are not vaccinated. is not having symptoms at this time. would not disclose where he feels he came in contact with Covid He is a known history of coronary disease with both CABG and drug-eluting stents. He has moderate aortic stenosis. He has diagnosis of stable angina has not taken any nitro for some time. Allergies Allergy/AdvReac Type Severity Reaction Status Date / Time No Known Allergies Allergy Unknown Verified 03/10/21 14:29 Home Medications Medication Instructions Recorded Confirmed Type fluticasone propionate 50 1 [facility] 03/10/21 History mcg/actuation nasal spray,suspension nitroglycerin 0.4 mg sublingual 0.4 mg SUBLINGUAL UD PRN #25 tab 06/20/20 03/10/21 Rx tablet ranolazine 500 mg tablet,extended 500 mg PO BID #180 tab 12/17/20 03/10/21 Rx release,12 hr amlodipine 2.5 mg tablet 2.5 mg PO [facility] 03/10/21 03/10/21 History ascorbic acid (vitamin C) 500 mg 500 mg PO [facility] 03/10/21 03/10/21 History tablet (Vitamin C) atenolol 50 mg tablet 50 mg PO QA 03/10/21 03/10/21 History clopidogrel 75 mg tablet 75 mg PO QA 03/10/21 03/10/21 History isosorbide mononitrate 120 mg 120 mg PO QA 03/10/21 03/10/21 History tablet,extended release 24 hr rosuvastatin 40 mg tablet 40 mg PO [facility] 03/10/21 03/10/21 History vitamin E 200 unit capsule 200 unit PO QA 03/10/21 03/10/21 History Past Med/Surg History Medical History (Updated 03/10/21 @ 17:19 by Darrin Gipson MD) Anemia Coronary artery disease Heart murmur Prostate cancer (03/15/15) "DIAGNOSIS: Prostate, adenocarcinoma, dmitriy 4 + 5, PSA 21.0, [id number], group IIB Rising PSA, pretreatment PSA 24.7 Status post ultrasound-guided biopsies 03/15/2015 revealing adenocarcinoma the prostate Dmitriy 4+3, 4+4, and 4+5 Prostate volume 21.9 Prostate density 1.127 Hormone suppression Status post completion of radiation therapy utilizing IMRT/IGRT completed 09/18/2015 received 8100 cGy" On 04/13/15 07:39 Veeral Cesar wrote "DIAGNOSIS: Prostate, adenocarcinoma, dmitriy 4 + 5, PSA 21.0, [id number], group IIB Rising PSA, pretreatment PSA 24.7 Status post ultrasound-guided biopsies 03/15/2015 revealing adenocarcinoma the prostate [place] 4+3, 4+4, and 4+5 Prostate volume 21.9 Prostate density 1.127" On 04/13/15 07:36 Brad Guerrero wrote "DIAGNOSIS: Prostate, adenocarcinoma, dmitriy 4 + 5, PSA 21.7, [id number], group IIB Rising PSA, pretreatment PSA 24.7 Status post ultrasound-guided biopsies 03/15/2015 revealing adenocarcinoma the prostate [place] 4+3, 4+4, and 4+5 Prostate volume 21.9 Prostate density 1.127" On 04/12/15 11:32 Liset Chan Lino wrote "Rising PSA, pretreatment PSA 24.7 Status post ultrasound-guided biopsies 03/15/2015 revealing adenocarcinoma the prostate [place] 4+3, 4+4, and 4+5 Prostate volume 21.9 Prostate density 1.127" Surgical History Hx of CABG History of coronary artery bypass graft surgery x5 vessels November 1996 at [facility]: BURKETT-LAD; SVG-PDA; SVG-ramus; SVG-left circumflex OM-1/OM-2. Acute coronary syndrome November 01, [address] depressions in the anterolateral leads. Cardiac catheterization with total ostial LAD stenosis, total proximal RCA stenosis, severe distal left main stenosis involving the origin of the left circumflex coronary artery, moderate proximal left circumflex stenosis, patent vein graft to PDA, patent internal mammary graft to LAD. Occluded vein graft to left circumflex marginal arteries. No evidence of graft to ramus. 2.5 x 12 mm and 2.5 x 8 mm drug eluting stents deployed in the left main into proximal left circumflex. Post dilated with 3 mm balloon. Residual stenosis 0% Family History Father Coronary heart disease Mother Breast cancer Social History Smoking Status: Never smoker Hx Alcohol Use: Yes Hx Substance Use: No Preferred Language: Upper Sorbian marital status: current occupational status: employed Feels Safe at Home: Yes Review of Systems Review of Systems: Mild distress and progressive fatigue no headache, no visual changes no speech or swallowing issues no chest pain, pressure or palpitations Some dyspnea on exertion nonproductive coughing no abdominal pain, nausea or vomiting, diarrhea for 2 days now resolving no dysuria, hematuria or frequency no focal joint pain or swelling no back pain, CVA tenderness or radicular pain no bruising, bleeding or rashes no focal signs of weakness or numbness or altered sensation no complaints of anxiety or depression.. Physical Exam Physical Exam: The patient appeared well nourished and normally developed. Vital signs as documented. Head exam is normocephalic atraumatic Neck is without JVD, thyromegaly, or carotid bruits. Lungs are coarse breath sounds bilaterally sounds be coarse rales Cardiac exam, Rhythm is regular.. Feel systolic murmur at the base Abdominal exam reveals normal bowel sounds, soft non tender, no masses no abdominal bruits Extremities are nonedematous and both pedal pulses are present Neurologic exam is alert and oriented, no focal loss of strength or sensation Skin is without bruises or rashes Psychologically is without concerns for anxiety or depression Results & Data Results & [facility] ([facility]) Vital Signs (Past 12 Hours) Vital Signs Temp Pulse Resp BP Pulse Ox 03/10/21 15:40 63 28 H 107/49 L 93 03/10/21 15:30 64 30 H 102/58 L 92 03/10/21 15:20 64 35 H 111/60 96 03/10/21 15:10 64 32 H 114/55 L 95 03/10/21 15:00 65 32 H 108/56 L 95 03/10/21 14:50 65 31 H 112/57 L 95 03/10/21 14:40 64 30 H 110/56 L 95 03/10/21 14:30 66 29 H 100/64 95 03/10/21 14:20 65 27 H 109/51 L 92 03/10/21 14:10 65 27 H 122/56 L 95 03/10/21 14:01 94 03/10/21 14:00 66 35 H 129/63 96 03/10/21 13:50 64 36 H 129/58 L 95 03/10/21 13:20 99.5 F 66 18 81/49 L 88 L 03/10/21 12:53 98 Diagnostic Findings Chest x-ray performed 03/10/2021 shows cardiomegaly with pulmonary vascular congestion and bilateral airspace opacities that could represent pulmonary edema and/or multifocal pneumonia ECG Additional Comments: EKG shows normal sinus rhythm no acute ST or T wave changes he does however flattened T waves laterally PG Care Time/CCT Total # of Minutes Spent Total Time Spent with Patient: Total time spent is greater than 50% in coordination of care (as documented) at patient's floor/unit and/or counseling patient: Coding Level of Care Code 74178 Initial Inpt Care Lvl 3 Diagnoses Pneumonia due to COVID-19 virus U07.1; J12.82 Dyslipidemia E78.5 Presence of drug-eluting stent in left circumflex coronary artery Z95.5 Moderate aortic stenosis I35.0 Prostate cancer C61 Hyponatremia E87.1 DVT prophylaxis Z29.9
[2021-03-10] MEDS ORDERED: REMDESIVIR 200 MG in SODIUM CHLORIDE 0.9% 210 ML IV STA (17:30)
[2021-03-10] MEDS ORDERED: FUROSEMIDE 40 MG/4 ML VIAL IV ONE (19:09)
[2021-03-10] MEDS ORDERED: ONDANSETRON INJ 2 MG/ML 2 ML VIAL IV PRN (19:09)
[2021-03-10] MEDS ORDERED: NITROGLYCERIN SL 0.4 MG/TAB TAB SL PRN ×2 (19:09)
[2021-03-10] MEDS ORDERED: ALUMINUM/MAGNESIUM SUSP 30 ML UDC PO PRN (19:09)
[2021-03-10] MEDS ORDERED: ACETAMINOPHEN 500 MG TAB PO PRN (19:09)
[2021-03-10] MEDS ORDERED: MoRPHine SULFATE 2 MG/ML CARP IV PRN (19:09)
[2021-03-10] MEDS: RANOLAZINE 500 MG ER TAB PO SCH (20:33)
[2021-03-10] MEDS: ENOXAPARIN INJ 60 MG/0.6 ML SYR SQ SCH (20:33)
[2021-03-10] MEDS: SODIUM CHLORIDE 0.9% 10ML FLUSH IV SCH (23:05)
[2021-03-11 08:24] LABS: Albumin Level 2.6 gm/dl (3.4-5.0); BUN Creatinine Ratio 19.3 (10-20); C Reactive Protein 8.24 mg/dl (0-0.29); Calcium 8.3 mg/dl (8.5-10.1); Creatinine Clr Calc Pharmacy 39.7 ml/min; Est GFR (African American) 43.2 ml/min; Est GFR (Non-African American) 37.3 ml/min; Potassium 3.9 mmol/L (3.5-5.1)
[2021-03-11] MEDS: RANOLAZINE 500 MG ER TAB PO SCH ×2 (08:26→20:31)
[2021-03-11] MEDS: ROSUVASTATIN CALCIUM 20 MG TAB PO SCH (08:26)
[2021-03-11] MEDS: TOCOPHERYL, DL-ALPHA 100 UNITS CAP PO SCH (08:26)
[2021-03-11] MEDS: ISOSORBIDE MONO EXTENDED REL 60 MG TABCR PO SCH (08:26)
[2021-03-11] MEDS: ASCORBIC ACID 500 MG TAB PO SCH (08:26)
[2021-03-11] MEDS: dexAMETHasone 6 MG in SYRINGE 0 ML IV SCH (08:26)
[2021-03-11 08:27] LABS: Albumin Globulin Ratio 0.7 (0.9-2); Bilirubin,Total 0.3 mg/dl (0.2-1); Globulin 3.7 gm/dl (2.5-4.0); Total Protein 6.3 gm/dl (6.4-8.2)
[2021-03-11] MEDS: ATENOLOL 50 MG TABLET PO SCH (08:27)
[2021-03-11] MEDS: CLOPIDOGREL BISULFATE 75 MG TAB PO SCH (08:27)
[2021-03-11] MEDS: amLODIPine BESYLATE 5 MG TAB PO SCH (08:27)
[2021-03-11] MEDS: FLUTICASONE PROPIONATE NA SPR 16 GM BTL SCH (08:28)
[2021-03-11] MEDS: ENOXAPARIN INJ 60 MG/0.6 ML SYR SQ SCH ×2 (08:28→20:31)
--- NOTE | 2021-03-11 09:48 | Hospitalist Progress Note ---
Date of Service March 11, 2021 Assessment & Plan (1) Pneumonia due to COVID-19 virus: Plan: Patient presents with acute respiratory failure with hypoxia secondary to Covid pneumonia. O2 sats are 88% respiration rate was as high as 36 he improved symptomatically with supple pulmonal oxygen. He was brought in our facility for remdesivir and dexamethasone, a CRP will be checked in the morning. Patient is not vaccinated. Pt first had symptoms 03/07/21, he has had diarrhea now resolved, and alteration of taste and smell currently. continue dexamethasone 6mg IV daily, day 2 continue Remdesivir, day 2 feeling better, on 3L NC, no distress encourage him to eat and drink, OOB in chair, lay prone discussed taking this one day at a time, can go home when off oxygen, he understands (2) Acute respiratory failure with hypoxia: Plan: stable on 3L at rest, did not desaturate on walking in the room, no distress slightly tachypneic likely try Lasix tomorrow depending on renal function (3) ALLISON (acute kidney injury): Plan: Cr was 1.9 on admission, little higher than normal, likely from poor oral intake and increased insensible losses from breathing heavy Cr down to 1.6 today, making urine, electrolytes stable, continue to monitor (4) Hyponatremia: Plan: likely from poor solute intake past few days Na up to 130's continue to monitor but now he is eating and drinking better (5) Presence of drug-eluting stent in left circumflex coronary artery: Plan: Patient with known history of coronary artery disease with both a CABG and drug- eluting stents. He typically has some stable angina but has not taken any prn nitrates recently. He maintains on atenolol 50, Plavix 75, isosorbide 120, Ranexa 500 twice daily and on rosuvastatin max dose 40 Patient also and amlodipine 2.5 no chest pain/pressure at this time (6) CKD (chronic kidney disease): Plan: Cr is stable at 1.68 this morning repeat BMP in AM (7) Moderate aortic stenosis: Plan: has shrill murmur on exam, described as mild to moderate on echocardiogram of 2019 at that time he has preserved LV systolic function with basilar inferior hypokinesis with LVH (8) Prostate cancer: (9) Dyslipidemia: Plan: Is on rosuvastatin (10) DVT prophylaxis: Plan: Will be on Covid based DVT prevention 0.5 mg/kg subcu every 12 Admission and Anticipated Discharge Date Admission Date: March 10, 2021 Subjective patient admitted yesterday, feels well today he is on 3L, saturating 93-97% while sitting in a chair, he just walked to the toilet, no major issues with desaturation or dyspnea he says his main symptoms at home were a cough, dyspnea, did not have fever, his stools were a little loose that was it he is eating okay, says his appetite could be better we discussed importance of OOB to chair, laying prone when in bed, using incentive spirometer reviewed chart, on Remdesivir and Dexamethasone Review of Systems Review of Systems: All systems reviewed & are unremarkable except as noted in Subjective Constitutional: no fever, no chills, no sweats, no fatigue and no weakness Respiratory: + cough and + dyspnea on exertion; no dyspnea Cardiovascular: no chest pain and no edema Gastrointestinal: no abdominal pain, no nausea, no vomiting, no constipation and no diarrhea/loose stools Physical Exam Physical Exam: General: well developed, well nourished, no acute distress, comfortable, older male Neck: supple, trachea midline, normal thyroid Lungs: faint crackles in bases, no wheezing, slightly tachypneic, no accessory muscle use, no distress Heart: regular S1 and S2, systolic ejection murmur, peripheral pulses normal, capillary refill normal, no edema Abdomen: soft, NT, ND, + BS, no hepatomegaly, normal to percussion Extremities: normal in appearance, no cyanosis, no petechiae, strength is 5/5 bilaterally Neuro: awake, cooperative, moves all extremities, no focal motor deficits, CN II-XII intact, sensation in extremities intact, normal speech Skin: warm, dry, no rash, normal turgor Psych: Awake, alert oriented x 3, euthymic affect Results & Data Results & Data ([facility]) Vital Signs (Past 12 Hours) Vital Signs Temp Pulse Resp BP Pulse Ox 03/11/21 07:24 36.5 C 55 L 28 H 120/59 L 95 03/11/21 03:34 36.5 C 55 L 23 110/57 L 94 03/10/21 22:52 36.5 C 53 L 16 105/55 L 95 Laboratory Results Laboratory Results - last 24 hr 03/10/21 03/10/21 03/10/21 13:40 13:40 13:40 WBC 5.35 RBC 4.19 L Hgb 13.1 L Hct 40.1 L MCV 95.7 MCH 31.3 MCHC 32.7 RDW Std Deviation 50.9 H RDW Coeff of [place] 14.4 Plt Count 98 L MPV 11.0 H Immature Gran % (Auto) 0.0 Neut % (Auto) 82.4 Lymph % (Auto) 8.4 [place] % (Auto) 9.0 Eos % (Auto) 0.0 Baso % (Auto) 0.2 Neut # (Auto) 4.41 Lymph # (Auto) 0.45 L [place] # (Auto) 0.48 Eos # (Auto) 0.00 Baso # (Auto) 0.01 Immature Gran # (Auto) 0.00 Platelet Estimate Decreased L Echinocytes 1+ Sodium 128 L Potassium 4.0 Chloride 97 L Carbon Dioxide 21 Anion Gap 10.0 BUN 25 H Creatinine 1.94 H Est Cr Clr Drug Dosing 34.3 Est GFR ( Amer) 36.3 Est GFR (Non-Af Amer) 31.3 BUN/Creatinine Ratio 13.1 Glucose 170 H Osmolality 278 L Calcium 7.9 L Phosphorus 3.3 Magnesium 1.8 Total Bilirubin 0.5 Direct Bilirubin 0.2 AST 58 H ALT 46 Alkaline Phosphatase 58 Troponin I < 0.015 C-Reactive Protein NT-Pro-B Natriuret Pep 356 Total Protein 6.8 Albumin 2.9 L Globulin 3.9 Albumin/Globulin Ratio 0.7 L Lipase 190 Urine Osmolality Ur Random Sodium COVID-19 Eval Order SARS-CoV-2 (PCR) 03/10/21 03/10/21 03/10/21 14:30 14:30 22:55 WBC RBC Hgb Hct MCV MCH MCHC RDW Std Deviation RDW Coeff of [place] Plt Count MPV Immature Gran % (Auto) Neut % (Auto) Lymph % (Auto) [place] % (Auto) Eos % (Auto) Baso % (Auto) Neut # (Auto) Lymph # (Auto) [place] # (Auto) Eos # (Auto) Baso # (Auto) Immature Gran # (Auto) Platelet Estimate Echinocytes Sodium Potassium Chloride Carbon Dioxide Anion Gap BUN Creatinine Est Cr Clr Drug Dosing Est GFR ( Amer) Est GFR (Non-Af Amer) BUN/Creatinine Ratio Glucose Osmolality Calcium Phosphorus Magnesium Total Bilirubin Direct Bilirubin AST ALT Alkaline Phosphatase Troponin I C-Reactive Protein NT-Pro-B Natriuret Pep Total Protein Albumin Globulin Albumin/Globulin Ratio Lipase Urine Osmolality 471 L Ur Random Sodium COVID-19 Eval Order Covid19 at [facility] SARS-CoV-2 (PCR) POSITIVE A* 03/10/21 03/11/21 22:55 07:08 WBC RBC Hgb Hct MCV MCH MCHC RDW Std Deviation RDW Coeff of [place] Plt Count MPV Immature Gran % (Auto) Neut % (Auto) Lymph % (Auto) [place] % (Auto) Eos % (Auto) Baso % (Auto) Neut # (Auto) Lymph # (Auto) [place] # (Auto) Eos # (Auto) Baso # (Auto) Immature Gran # (Auto) Platelet Estimate Echinocytes Sodium 132 L Potassium 3.9 Chloride 104 Carbon Dioxide 17 L Anion Gap 10.0 BUN 33 H Creatinine 1.68 H Est Cr Clr Drug Dosing 39.7 Est GFR ( Amer) 43.2 Est GFR (Non-Af Amer) 37.3 BUN/Creatinine Ratio 19.3 Glucose 182 H Osmolality Calcium 8.3 L Phosphorus Magnesium Total Bilirubin 0.3 Direct Bilirubin AST 50 H ALT 38 Alkaline Phosphatase 53 Troponin I C-Reactive Protein 8.24 H NT-Pro-B Natriuret Pep Total Protein 6.3 L Albumin 2.6 L Globulin 3.7 Albumin/Globulin Ratio 0.7 L Lipase Urine Osmolality Ur Random Sodium 30 COVID-19 Eval Order SARS-CoV-2 (PCR) Medications Administered Current Inpatient Medications Acetaminophen (Acetaminophen 500 Mg Tab) 1,000 mg PO TID PRN PRN Reason: Pain or Fever Stop: 04/09/21 19:08 Al Hydrox/Mg Hydrox/Simethicone (Aluminum/Magnesium Susp 30 Ml Udc) 15 ml PO Q4H PRN PRN Reason: Dyspepsia Stop: 04/09/21 19:08 Amlodipine Besylate (Amlodipine Besylate 5 Mg Tab) 2.5 mg PO QAM [facility] Stop: 04/10/21 08:59 Last Admin: 03/11/21 08:27 Dose: 2.5 mg Documented by: Ascorbic Acid (Ascorbic Acid 500 Mg Tab) 500 mg PO QAM [facility] Stop: 04/10/21 08:59 Last Admin: 03/11/21 08:26 Dose: 500 mg Documented by: Atenolol (Atenolol 50 Mg Tablet) [facility] Stop: 04/10/21 08:59 Last Admin: 03/11/21 08:27 Dose: 50 mg Documented by: Clopidogrel Bisulfate (Clopidogrel Bisulfate 75 Mg Tab) 75 mg PO QAM [facility] Stop: 04/10/21 08:59 Last Admin: 03/11/21 08:27 Dose: 75 mg Documented by: Enoxaparin Sodium (Enoxaparin Inj 60 Mg/0.6 Ml Syr) 50 mg SQ Q12H [facility] Stop: 04/09/21 19:44 Last Admin: 03/11/21 08:28 Dose: 50 mg Documented by: Fluticasone Propionate (Fluticasone Propionate Na Spr 16 Gm Btl) 1 sprays NA QAM [facility] Stop: 04/10/21 08:59 Last Admin: 03/11/21 08:28 Dose: 1 sprays Documented by: Remdesivir 100 mg/ Sodium (Chloride) 250 mls @ 250 mls/hr IV Q24H [facility]; Protocol Stop: 03/14/21 20:59 Dexamethasone 6 mg/ Syringe 1.5 mls @ 1 mls/min IV DAILY [facility] Stop: 03/21/21 08:59 Last Admin: 03/11/21 08:26 Dose: 1 mls/min Documented by: Isosorbide Mononitrate (Isosorbide [place] Extended Rel 60 Mg Tabcr) 120 mg PO QAM [facility] Stop: 04/10/21 08:59 Last Admin: 03/11/21 08:26 Dose: 120 mg Documented by: Morphine Sulfate (Morphine Sulfate 2 Mg/Ml [place]) 2 mg IV Q30M PRN PRN Reason: Chest Pain Stop: 03/24/21 19:08 Nitroglycerin (Nitroglycerin Sl 0.4 Mg/Tab Tab) 0.4 mg SL UD PRN PRN Reason: Chest Pain Stop: 04/09/21 19:08 Ondansetron HCl (Ondansetron Inj 2 Mg/Ml 2 Ml Vial) 4 mg IV Q6H PRN PRN Reason: Nausea Stop: 04/09/21 19:08 Ranolazine (Ranolazine 500 Mg Er Tab) 500 mg PO BID [facility] Stop: 10/26/21 20:59 Last Admin: 03/11/21 08:26 Dose: 500 mg Documented by: Rosuvastatin Calcium (Rosuvastatin Calcium 20 Mg Tab) 40 mg PO QAM [facility] Stop: 04/10/21 08:59 Last Admin: 03/11/21 08:26 Dose: 40 mg Documented by: Sodium Chloride (Sodium Chloride 0.9% 10ml Flush) 30 ml IV Q24H [facility] Stop: 03/13/21 20:01 Last Admin: 03/10/21 23:05 Dose: 30 ml Documented by: Vitamin E (Tocopheryl, Dl-Alpha 100 Units Cap) 200 units PO QAM [facility] Stop: 04/10/21 08:59 Last Admin: 03/11/21 08:26 Dose: 200 units Documented by: PG Care Time/CCT Total # of Minutes Spent Total Time Spent with Patient: Total time spent is greater than 50% in coordination of care (as documented) at patient's floor/unit and/or counseling patient: Coding Level of Care Code 29168 Subseq Hosp Care Lvl 3 Diagnoses Pneumonia due to COVID-19 virus U07.1; J12.82 Presence of drug-eluting stent in left circumflex coronary artery Z95.5 Hyponatremia E87.1 Moderate aortic stenosis I35.0 Prostate cancer C61 Dyslipidemia E78.5 DVT prophylaxis Z29.9 CKD (chronic kidney disease) N18.9 ALLISON (acute kidney injury) N17.9 Acute respiratory failure with hypoxia J96.01
--- NOTE | 2021-03-11 15:30 | Electrocardiogram Report ---
Test Reason : Blood Pressure : / mmHG Vent. Rate : 066 BPM Atrial Rate : 066 BPM P-R Int : 198 ms QRS Dur : 094 ms QT Int : 406 ms P-R-T Axes : 009 029 241 degrees QTc Int : 425 ms Normal sinus rhythm Poor R wave progression, consider anterior GA vs. lead placement vs. LVH Nonspecific ST and T wave abnormality Abnormal ECG When compared with ECG of 16-JUN-2018 22:24, [place] interval has decreased Anterior infarct is now Present Confirmed by Chencho Allen ([id number]) on 03/11/2021 3:29:54 PM Referred By: REFERRED SELF Confirmed By:Chencho Allen
[2021-03-11] MEDS ORDERED: CARBOHYDRATES FOR HYPOGLYCEMIA PO PRN (16:00)
[2021-03-11] MEDS ORDERED: DEXTROSE 50% 50 ML SYRINGE IV PRN (16:00)
[2021-03-11] MEDS ORDERED: GLUCOSE 10 TABS/TUBE PO PRN (16:00)
[2021-03-11] MEDS ORDERED: GLUCAGON FOR INJ 1 MG VIAL IM PRN (16:00)
[2021-03-11] MEDS ORDERED: GLUCOSE 40% GEL 15 GM TUBE PO PRN (16:00)
[2021-03-11] MEDS: INSULIN ASPART 100 UNITS/ML 3 ML PEN SC SCH ×2 (17:10→20:48)
[2021-03-11] MEDS: REMDESIVIR 100 MG in SODIUM CHLORIDE 0.9% 230 ML IV SCH (19:13)
[2021-03-11] MEDS ORDERED: COUGH DROP (SUGAR FREE) LOZ 24 LOZ/1 BOX BUCCAL PRN (19:22)
[2021-03-11] MEDS: guaiFENesin/DEXTROM SYRUP 100MG/10MG 5ML UDC PO PRN (19:36)
[2021-03-11] MEDS: SODIUM CHLORIDE 0.9% 10ML FLUSH IV SCH (20:32)
[2021-03-12] MEDS: ROSUVASTATIN CALCIUM 20 MG TAB PO SCH (08:15)
[2021-03-12] MEDS: RANOLAZINE 500 MG ER TAB PO SCH ×2 (08:16→20:26)
[2021-03-12] MEDS: ISOSORBIDE MONO EXTENDED REL 60 MG TABCR PO SCH (08:16)
[2021-03-12] MEDS: TOCOPHERYL, DL-ALPHA 100 UNITS CAP PO SCH (08:17)
[2021-03-12] MEDS: CLOPIDOGREL BISULFATE 75 MG TAB PO SCH (08:18)
[2021-03-12] MEDS: amLODIPine BESYLATE 5 MG TAB PO SCH (08:19)
[2021-03-12] MEDS: ATENOLOL 50 MG TABLET PO SCH (08:19)
[2021-03-12 08:21] LABS: C Reactive Protein 5.62 mg/dl (0-0.29); Calcium 8.7 mg/dl (8.5-10.1); Est GFR (African American) 41.4 ml/min; Est GFR (Non-African American) 35.7 ml/min; Potassium 4.5 mmol/L (3.5-5.1)
[2021-03-12] MEDS: ASCORBIC ACID 500 MG TAB PO SCH (08:21)
[2021-03-12] MEDS: dexAMETHasone 6 MG in SYRINGE 0 ML IV SCH (08:23)
[2021-03-12] MEDS: FLUTICASONE PROPIONATE NA SPR 16 GM BTL SCH (08:24)
[2021-03-12] MEDS: ENOXAPARIN INJ 60 MG/0.6 ML SYR SQ SCH ×2 (09:00→21:50)
[2021-03-12] MEDS: INSULIN ASPART 100 UNITS/ML 3 ML PEN SC SCH ×4 (09:05→20:37)
--- NOTE | 2021-03-12 10:45 | Hospitalist Progress Note ---
Date of Service March 12, 2021 Assessment & Plan (1) Pneumonia due to COVID-19 virus: Plan: Patient presents with acute respiratory failure with hypoxia secondary to Covid pneumonia. O2 sats are 88% respiration rate was as high as 36 he improved symptomatically with supple pulmonal oxygen. He was brought in our facility for remdesivir and dexamethasone, a CRP will be checked in the morning. Patient is not vaccinated. Pt first had symptoms 03/07/21, he has had diarrhea now resolved, and alteration of taste and smell currently. continue dexamethasone 6mg IV daily, day 3 continue Remdesivir, day 3 remains stable on 3L NC, no distress encourage him to eat and drink, OOB in chair, lay prone discussed taking this one day at a time, can go home when off oxygen, he understands (2) Acute respiratory failure with hypoxia: Plan: stable on 3L at rest, did not desaturate on walking in the room, no distress slightly tachypneic no Lasix for now as Cr is 1.7 (3) ALLISON (acute kidney injury): Plan: Cr was 1.9 on admission, little higher than normal, likely from poor oral intake and increased insensible losses from breathing heavy Cr down to 1.7 today, making urine, electrolytes stable, continue to monitor (4) Hyponatremia: Plan: likely from poor solute intake past few days Na up to 135 continue to monitor but now he is eating and drinking better (5) Presence of drug-eluting stent in left circumflex coronary artery: Plan: Patient with known history of coronary artery disease with both a CABG and drug- eluting stents. He typically has some stable angina but has not taken any prn nitrates recently. He maintains on atenolol 50, Plavix 75, isosorbide 120, Ranexa 500 twice daily and on rosuvastatin max dose 40 Patient also and amlodipine 2.5 no chest pain/pressure at this time (6) CKD (chronic kidney disease): Plan: Cr is stable at 1.7 this morning repeat BMP in AM (7) Moderate aortic stenosis: Plan: has shrill murmur on exam, described as mild to moderate on echocardiogram of 2019 at that time he has preserved LV systolic function with basilar inferior hypokinesis with LVH (8) Prostate cancer: (9) Dyslipidemia: Plan: Is on rosuvastatin (10) DVT prophylaxis: Plan: Will be on Covid based DVT prevention 0.5 mg/kg subcu every 12 Admission and Anticipated Discharge Date Admission Date: March 10, 2021 Subjective patient had a good night last night, no issues, minimal cough, no fever making urine, no BM yet, eating what he can, says the food is cold breathing feels the same, he is stable on 3L labs today show Cr is 1.7, hold on Lasix for now Review of Systems Review of Systems: All systems reviewed & are unremarkable except as noted in Subjective Respiratory: + cough, + dyspnea and + dyspnea on exertion; no sputum production Physical Exam Physical Exam: General: well developed, well nourished, no acute distress, comfortable, older male Neck: supple, trachea midline, normal thyroid Lungs: faint crackles in bases, no wheezing, slightly tachypneic, no accessory muscle use, no distress Heart: regular S1 and S2, systolic ejection murmur, peripheral pulses normal, capillary refill normal, no edema Abdomen: soft, NT, ND, + BS, no hepatomegaly, normal to percussion Extremities: normal in appearance, no cyanosis, no petechiae, strength is 5/5 bilaterally Neuro: awake, cooperative, moves all extremities, no focal motor deficits, CN II-XII intact, sensation in extremities intact, normal speech Skin: warm, dry, no rash, normal turgor Psych: Awake, alert oriented x 3, euthymic affect Results & Data Results & Data ([facility]) Vital Signs (Past 12 Hours) Vital Signs Temp Pulse Pulse Resp BP BP Pulse Ox 03/12/21 09:11 53 L 03/12/21 07:48 36.5 C 57 L 19 108/56 L 93 03/12/21 04:31 36.8 C 53 L 16 108/62 94 03/12/21 01:53 51 L 03/11/21 23:35 36.5 C 64 16 108/60 95 Laboratory Results Laboratory Results - last 24 hr 03/11/21 03/11/21 03/12/21 16:46 20:27 06:57 Sodium 135 L Potassium 4.5 D Chloride 106 Carbon Dioxide 21 Anion Gap 7.0 BUN 44 H Creatinine 1.74 H Est Cr Clr Drug Dosing 38.0 Est GFR ( Amer) 41.4 Est GFR (Non-Af Amer) 35.7 BUN/Creatinine Ratio 25.0 H Glucose 180 H POC Glucose 263 H 203 H Calcium 8.7 C-Reactive Protein 5.62 H 03/12/21 07:50 Sodium Potassium Chloride Carbon Dioxide Anion Gap BUN Creatinine Est Cr Clr Drug Dosing Est GFR ( Amer) Est GFR (Non-Af Amer) BUN/Creatinine Ratio Glucose POC Glucose 160 H Calcium C-Reactive Protein Medications Administered Current Inpatient Medications Acetaminophen (Acetaminophen 500 Mg Tab) 1,000 mg PO TID PRN PRN Reason: Pain or Fever Stop: 04/09/21 19:08 Al Hydrox/Mg Hydrox/Simethicone (Aluminum/Magnesium Susp 30 Ml Udc) 15 ml PO Q4H PRN PRN Reason: Dyspepsia Stop: 04/09/21 19:08 Amlodipine Besylate (Amlodipine Besylate 5 Mg Tab) [facility] [place] Stop: 04/10/21 08:59 Last Admin: 03/12/21 08:19 Dose: 2.5 mg Documented by: Ascorbic Acid (Ascorbic Acid 500 Mg Tab) 500 mg PO [facility] Stop: 04/10/21 08:59 Last Admin: 03/12/21 08:21 Dose: 500 mg Documented by: Atenolol (Atenolol 50 Mg Tablet) 50 mg PO [facility] Stop: 04/10/21 08:59 Last Admin: 03/12/21 08:19 Dose: Not Given Documented by: Clopidogrel Bisulfate (Clopidogrel Bisulfate 75 Mg Tab) 75 [facility] [place] Stop: 04/10/21 08:59 Last Admin: 03/12/21 08:18 Dose: 75 mg Documented by: Dextrose (Dextrose 50% 50 Ml Syringe) 25 - 50 ml IV UD PRN; Protocol PRN Reason: Hypoglycemia Protocol Stop: 04/10/21 15:59 Enoxaparin Sodium (Enoxaparin Inj 60 Mg/0.6 Ml Syr) 50 mg SQ Q12H [facility] Stop: 04/09/21 19:44 Last Admin: 03/12/21 09:00 Dose: 50 mg Documented by: Fluticasone Propionate (Fluticasone Propionate Na Spr 16 Gm Btl) 1 sprays NA QAM [facility] Stop: 04/10/21 08:59 Last Admin: 03/12/21 08:24 Dose: 1 sprays Documented by: Glucagon (Glucagon For Inj 1 Mg Vial) 1 mg IM UD PRN; Protocol PRN Reason: Hypoglycemia Protocol Stop: 04/10/21 15:59 Glucose (Glucose 40% Gel 15 Gm Tube) 15 - 30 gm PO UD PRN; Protocol PRN Reason: Hypoglycemia Protocol Stop: 04/10/21 15:59 Glucose (Glucose 10 Tabs/Tube) 4 - 8 tabs PO UD PRN; Protocol PRN Reason: Hypoglycemia Protocol Stop: 04/10/21 15:59 Guaifenesin/Dextromethorphan (Guaifenesin/Dextrom Syrup 100mg/10mg 5ml Udc) 5 ml PO Q6H PRN PRN Reason: Cough Stop: 04/10/21 19:21 Last Admin: 03/11/21 19:36 Dose: 5 ml Documented by: Remdesivir 100 mg/ Sodium (Chloride) 250 mls @ 250 mls/hr IV Q24H [facility]; Protocol Stop: 03/14/21 20:59 Last Infusion: 03/11/21 20:13 Dose: Infused Documented by: Dexamethasone 6 mg/ Syringe 1.5 mls @ 1 mls/min IV DAILY [facility] Stop: 03/21/21 08:59 Last Admin: 03/12/21 08:23 Dose: 1 mls/min Documented by: Insulin Aspart (Insulin Aspart 100 Units/Ml 3 Ml Pen) 0 units SC ACHS [facility] Stop: 04/10/21 16:29 Last Admin: 03/12/21 09:05 Dose: 10 units Documented by: Isosorbide Mononitrate (Isosorbide [place] Extended Rel 60 Mg Tabcr) 120 mg PO QAM [facility] Stop: 04/10/21 08:59 Last Admin: 03/12/21 08:16 Dose: 120 mg Documented by: Menthol (Cough Drop (Sugar Free) Marlen 24 Marlen/1 Box) 1 marlen BUCCAL Q4H PRN PRN Reason: Sore Throat Stop: 04/10/21 19:21 Last Admin: 03/11/21 19:37 Dose: 1 marlen Documented by: Miscellaneous (Carbohydrates For Hypoglycemia ) 15 - 30 gm PO UD PRN PRN Reason: Hypoglycemia Treatment Stop: 04/10/21 15:59 Morphine Sulfate (Morphine Sulfate 2 Mg/Ml Carp) 2 mg IV Q30M PRN PRN Reason: Chest Pain Stop: 03/24/21 19:08 Nitroglycerin (Nitroglycerin Sl 0.4 Mg/Tab Tab) 0.4 mg SL UD PRN PRN Reason: Chest Pain Stop: 04/09/21 19:08 Ondansetron HCl (Ondansetron Inj 2 Mg/Ml 2 Ml Vial) 4 mg IV Q6H PRN PRN Reason: Nausea Stop: 04/09/21 19:08 Ranolazine (Ranolazine 500 Mg Er Tab) 500 mg PO BID [facility] Stop: 04/09/21 20:59 Last Admin: 03/12/21 08:16 Dose: 500 mg Documented by: Rosuvastatin Calcium (Rosuvastatin Calcium 20 Mg Tab) 40 mg PO QAM [facility] Stop: 04/10/21 08:59 Last Admin: 03/12/21 08:15 Dose: 40 mg Documented by: Sodium Chloride (Sodium Chloride 0.9% 10ml Flush) 30 ml IV Q24H [facility] Stop: 03/13/21 20:01 Last Admin: 03/11/21 20:32 Dose: 30 ml Documented by: Vitamin E (Tocopheryl, Dl-Alpha 100 Units Cap) 200 units PO QAM [facility] Stop: 04/10/21 08:59 Last Admin: 03/12/21 08:17 Dose: 200 units Documented by: PG Care Time/CCT Total # of Minutes Spent Total Time Spent with Patient: Total time spent is greater than 50% in coordination of care (as documented) at patient's floor/unit and/or counseling patient: Coding Level of Care Code 25079 Subseq Hosp Care Lvl 3 Diagnoses Pneumonia due to COVID-19 virus U07.1; J12.82 Acute respiratory failure with hypoxia J96.01 ALLISON (acute kidney injury) N17.9 Hyponatremia E87.1 Presence of drug-eluting stent in left circumflex coronary artery Z95.5 CKD (chronic kidney disease) N18.9 Moderate aortic stenosis I35.0 Prostate cancer C61 Dyslipidemia E78.5 DVT prophylaxis Z29.9
[2021-03-12] MEDS: guaiFENesin/DEXTROM SYRUP 100MG/10MG 5ML UDC PO PRN (20:25)
[2021-03-12] MEDS: REMDESIVIR 100 MG in SODIUM CHLORIDE 0.9% 230 ML IV SCH (20:26)
[2021-03-12] MEDS: SODIUM CHLORIDE 0.9% 10ML FLUSH IV SCH (21:50)
[2021-03-13] MEDS ORDERED: FUROSEMIDE 20 MG in SYRINGE 0 ML IV ONE (08:00)
--- NOTE | 2021-03-13 08:02 | XRay Report ---
XR chest 1V portable HISTORY: 80 years-old Male covid pneumonia acute shortness of breath with reported pneumonia COMPARISON: Chest radiograph 03/10/2021 TECHNIQUE: AP view of the chest FINDINGS: Cardiac silhouette is enlarged. Prior median sternotomy. Pulmonary vascular congestion Surgical proje ct over the left suprahilar distribution. Calcified plaque of the thoracic aorta. Unchanged right hem idiaphragmatic elevation. Trace pleural effusions. No pneumothorax. Interstitial coarsening with patc hy bilateral airspace opacities appear generally stable from comparison with mildly improved aeration of the lung bases. Surgical clips of the epigastric distribution. Degenerative changes of the should ers and spine. IMPRESSION: 1. Cardiomegaly with decreased pulmonary vascular congestion. 2. Persistent bilateral mixed interstitial and alveolar opacities suggestive of multifocal pneumonia. 2. Trace pleural effusions. ACT 112: Negative or not required by law. The above report was generated using voice recognition software. It may contain grammatical, syntax o r spelling errors. Electronically signed by: Villa Deleon M.D. 03/13/2021 8:00 AM
[2021-03-13 08:25] LABS: Albumin Level 2.4 gm/dl (3.4-5.0); BUN Creatinine Ratio 25.8 (10-20); Calcium 8.6 mg/dl (8.5-10.1); Est GFR (Non-African American) 41.4 ml/min; Potassium 4.7 mmol/L (3.5-5.1)
[2021-03-13 08:28] LABS: Albumin Globulin Ratio 0.6 (0.9-2); Bilirubin,Total 0.4 mg/dl (0.2-1); Globulin 3.7 gm/dl (2.5-4.0); Total Protein 6.1 gm/dl (6.4-8.2)
[2021-03-13] MEDS: dexAMETHasone 6 MG in SYRINGE 0 ML IV SCH (08:39)
[2021-03-13] MEDS: ENOXAPARIN INJ 60 MG/0.6 ML SYR SQ SCH ×2 (08:40→20:28)
[2021-03-13] MEDS: RANOLAZINE 500 MG ER TAB PO SCH ×2 (08:41→20:28)
[2021-03-13] MEDS: amLODIPine BESYLATE 5 MG TAB PO SCH (08:42)
[2021-03-13] MEDS: ASCORBIC ACID 500 MG TAB PO SCH (08:42)
[2021-03-13] MEDS: TOCOPHERYL, DL-ALPHA 100 UNITS CAP PO SCH (08:42)
[2021-03-13] MEDS: CLOPIDOGREL BISULFATE 75 MG TAB PO SCH (08:42)
[2021-03-13] MEDS: ROSUVASTATIN CALCIUM 20 MG TAB PO SCH (08:42)
[2021-03-13] MEDS: FLUTICASONE PROPIONATE NA SPR 16 GM BTL SCH (08:43)
[2021-03-13] MEDS: ISOSORBIDE MONO EXTENDED REL 60 MG TABCR PO SCH (08:43)
[2021-03-13] MEDS: ATENOLOL 50 MG TABLET PO SCH (08:44)
[2021-03-13] MEDS: INSULIN ASPART 100 UNITS/ML 3 ML PEN SC SCH ×4 (09:22→20:33)
--- NOTE | 2021-03-13 14:01 | Hospitalist Progress Note ---
Date of Service March 13, 2021 Assessment & Plan (1) Pneumonia due to COVID-19 virus: Plan: Patient presents with acute respiratory failure with hypoxia secondary to Covid pneumonia. O2 sats are 88% respiration rate was as high as 36 he improved symptomatically with supple pulmonal oxygen. He was brought in our facility for remdesivir and dexamethasone, a CRP will be checked in the morning. Patient is not vaccinated. Pt first had symptoms 03/07/21, he has had diarrhea now resolved, and alteration of taste and smell currently. continue dexamethasone 6mg IV daily, day 4 continue Remdesivir, day 4 oxygen requirements up slightly at 5-6L, still with normal effort, no distress encourage him to eat and drink, OOB in chair, lay prone will try a dose of Lasix tomorrow (2) Acute respiratory failure with hypoxia: Plan: stable on 5-6L at rest, did not desaturate on walking in the room, no distress might give Lasix tomorrow (3) ALLISON (acute kidney injury): Plan: Cr was 1.9 on admission, little higher than normal, likely from poor oral intake and increased insensible losses from breathing heavy Cr down to 1.5 today, making urine, electrolytes stable, continue to monitor (4) Hyponatremia: Plan: likely from poor solute intake past few days Na up to 135 continue to monitor but now he is eating and drinking better (5) Presence of drug-eluting stent in left circumflex coronary artery: Plan: Patient with known history of coronary artery disease with both a CABG and drug- eluting stents. He typically has some stable angina but has not taken any prn nitrates recently. He maintains on atenolol 50, Plavix 75, isosorbide 120, Ranexa 500 twice daily and on rosuvastatin max dose 40 Patient also and amlodipine 2.5 no chest pain/pressure at this time (6) CKD (chronic kidney disease): Plan: Cr is stable at 1.5 this morning repeat BMP in AM (7) Moderate aortic stenosis: Plan: has shrill murmur on exam, described as mild to moderate on echocardiogram of 2019 at that time he has preserved LV systolic function with basilar inferior hypokinesis with LVH (8) Prostate cancer: (9) Dyslipidemia: Plan: Is on rosuvastatin (10) DVT prophylaxis: Plan: Will be on Covid based DVT prevention 0.5 mg/kg subcu every 12 Admission and Anticipated Discharge Date Admission Date: March 10, 2021 Subjective patient says he feels the same as yesterday, no dyspnea, mild cough, some dyspnea on exertion no chest pain, no fever, eating fairly well he is up to 5-6L NC today, but again feels the same discussed that this is normal for COVID pneumonia, require more oxygen before you get better he is a little discouraged as it means he wont' be going home as soon as he would like told him to be patient, will get him through this Review of Systems Review of Systems: All systems reviewed & are unremarkable except as noted in Subjective Physical Exam Physical Exam: General: well developed, well nourished, no acute distress, comfortable, older male Neck: supple, trachea midline, normal thyroid Lungs: faint crackles in bases, no wheezing, slightly tachypneic, no accessory muscle use, no distress Heart: regular S1 and S2, systolic ejection murmur, peripheral pulses normal, capillary refill normal, no edema Abdomen: soft, NT, ND, + BS, no hepatomegaly, normal to percussion Extremities: normal in appearance, no cyanosis, no petechiae, strength is 5/5 bilaterally Neuro: awake, cooperative, moves all extremities, no focal motor deficits, CN II-XII intact, sensation in extremities intact, normal speech Skin: warm, dry, no rash, normal turgor Psych: Awake, alert oriented x 3, euthymic affect Results & Data Results & Data ([facility]) Vital Signs (Past 12 Hours) Vital Signs Temp Pulse Resp BP Pulse Ox 03/13/21 07:28 36.6 C 57 L 20 127/72 90 03/13/21 04:54 90 Laboratory Results Laboratory Results - last 24 hr 03/12/21 03/12/21 03/13/21 17:17 20:29 07:06 Sodium 135 L Potassium 4.7 Chloride 108 H Carbon Dioxide 19 L Anion Gap 8.0 BUN 40 H Creatinine 1.54 H Est Cr Clr Drug Dosing 43.0 Est GFR ( Amer) 48.0 Est GFR (Non-Af Amer) 41.4 BUN/Creatinine Ratio 25.8 H Glucose 188 H POC Glucose 174 H 172 H Calcium 8.6 Total Bilirubin 0.4 AST 84 H ALT 76 Alkaline Phosphatase 61 Total Protein 6.1 L Albumin 2.4 L Globulin 3.7 Albumin/Globulin Ratio 0.6 L 03/13/21 03/13/21 08:16 12:17 Sodium Potassium Chloride Carbon Dioxide Anion Gap BUN Creatinine Est Cr Clr Drug Dosing Est GFR ( Amer) Est GFR (Non-Af Amer) BUN/Creatinine Ratio Glucose POC Glucose 181 H 237 H Calcium Total Bilirubin AST ALT Alkaline Phosphatase Total Protein Albumin Globulin Albumin/Globulin Ratio Medications Administered Current Inpatient Medications Acetaminophen (Acetaminophen 500 Mg Tab) 1,000 mg PO TID PRN PRN Reason: Pain or Fever Stop: 04/09/21 19:08 Al Hydrox/Mg Hydrox/Simethicone (Aluminum/Magnesium Susp 30 Ml Udc) 15 ml PO Q4H PRN PRN Reason: Dyspepsia Stop: 04/09/21 19:08 Amlodipine Besylate (Amlodipine Besylate 5 Mg Tab) 2.5 mg PO [facility] Stop: 04/10/21 08:59 Last Admin: 03/13/21 08:42 Dose: 2.5 mg Documented by: Ascorbic Acid (Ascorbic Acid 500 Mg Tab) 500 mg PO [facility] Stop: 04/10/21 08:59 Last Admin: 03/13/21 08:42 Dose: 500 mg Documented by: Atenolol (Atenolol 50 Mg Tablet) 50 mg PO [facility] Stop: 04/10/21 08:59 Last Admin: 03/13/21 08:44 Dose: Not Given Documented by: Clopidogrel Bisulfate (Clopidogrel Bisulfate 75 Mg Tab) 75 mg PO [facility] Stop: 04/10/21 08:59 Last Admin: 03/13/21 08:42 Dose: 75 mg Documented by: Dextrose (Dextrose 50% 50 Ml Syringe) 25 - 50 ml IV UD PRN; Protocol PRN Reason: Hypoglycemia Protocol Stop: 04/10/21 15:59 Enoxaparin Sodium (Enoxaparin Inj 60 Mg/0.6 Ml Syr) 50 mg SQ Q12H [facility] Stop: 04/09/21 19:44 Last Admin: 03/13/21 08:40 Dose: 50 mg Documented by: Fluticasone Propionate (Fluticasone Propionate Na Spr 16 Gm Btl) [facility]ays [facility] [place] [facility] Stop: 04/10/21 08:59 Last Admin: 03/13/21 08:43 Dose: 1 sprays Documented by: Glucagon (Glucagon For Inj 1 Mg Vial) 1 mg IM UD PRN; Protocol PRN Reason: Hypoglycemia Protocol Stop: 04/10/21 15:59 Glucose (Glucose 40% Gel 15 Gm Tube) 15 - 30 gm PO UD PRN; Protocol PRN Reason: Hypoglycemia Protocol Stop: 04/10/21 15:59 Glucose (Glucose 10 Tabs/Tube) 4 - 8 tabs PO UD PRN; Protocol PRN Reason: Hypoglycemia Protocol Stop: 04/10/21 15:59 Guaifenesin/Dextromethorphan (Guaifenesin/Dextrom Syrup 100mg/10mg 5ml Udc) 5 ml PO Q6H PRN PRN Reason: Cough Stop: 04/10/21 19:21 Last Admin: 03/12/21 20:25 Dose: 5 ml Documented by: Remdesivir 100 mg/ Sodium (Chloride) 250 mls @ 250 mls/hr IV Q24H [facility]; Protocol Stop: 03/14/21 20:59 Last Infusion: 03/12/21 21:33 Dose: Infused Documented by: Dexamethasone 6 mg/ Syringe 1.5 mls @ 1 mls/min IV DAILY [facility] Stop: 03/21/21 08:59 Last Admin: 03/13/21 08:39 Dose: 1 mls/min Documented by: Insulin Aspart (Insulin Aspart 100 Units/Ml 3 Ml Pen) 0 units SC ACHS [facility] Stop: 04/10/21 16:29 Last Admin: 03/13/21 13:07 Dose: 4 units Documented by: Isosorbide Mononitrate (Isosorbide [place] Extended Rel 60 Mg Tabcr) 120 mg PO QAM [facility] Stop: 04/10/21 08:59 Last Admin: 03/13/21 08:43 Dose: 120 mg Documented by: Menthol (Cough Drop (Sugar Free) Marlen 24 Marlen/1 Box) 1 marlen BUCCAL Q4H PRN PRN Reason: Sore Throat Stop: 04/10/21 19:21 Last Admin: 03/11/21 19:37 Dose: 1 marlen Documented by: Miscellaneous (Carbohydrates For Hypoglycemia ) 15 - 30 gm PO UD PRN PRN Reason: Hypoglycemia Treatment Stop: 04/10/21 15:59 Ondansetron HCl (Ondansetron Inj 2 Mg/Ml 2 Ml Vial) 4 mg IV Q6H PRN PRN Reason: Nausea Stop: 04/09/21 19:08 Ranolazine (Ranolazine 500 Mg Er Tab) 500 mg PO BID [facility] Stop: 04/09/21 20:59 Last Admin: 03/13/21 08:41 Dose: 500 mg Documented by: Rosuvastatin Calcium (Rosuvastatin Calcium 20 Mg Tab) 40 mg PO QAM [facility] Stop: 04/10/21 08:59 Last Admin: 03/13/21 08:42 Dose: 40 mg Documented by: Sodium Chloride (Sodium Chloride 0.9% 10ml Flush) 30 ml IV Q24H [facility] Stop: 03/13/21 20:01 Last Admin: 03/12/21 21:50 Dose: 30 ml Documented by: Vitamin E (Tocopheryl, Dl-Alpha 100 Units Cap) 200 units PO QAM [facility] Stop: 04/10/21 08:59 Last Admin: 03/13/21 08:42 Dose: 200 units Documented by: PG Care Time/CCT Total # of Minutes Spent Total Time Spent with Patient: Total time spent is greater than 50% in coordination of care (as documented) at patient's floor/unit and/or counseling patient: Coding Level of Care Code 02508 Subseq Hosp Care Lvl 2 Diagnoses Pneumonia due to COVID-19 virus U07.1; J12.82 Acute respiratory failure with hypoxia J96.01 ALLISON (acute kidney injury) N17.9 Hyponatremia E87.1 Presence of drug-eluting stent in left circumflex coronary artery Z95.5 CKD (chronic kidney disease) N18.9 Moderate aortic stenosis I35.0 Prostate cancer C61 Dyslipidemia E78.5 DVT prophylaxis Z29.9
[2021-03-13] MEDS: REMDESIVIR 100 MG in SODIUM CHLORIDE 0.9% 230 ML IV SCH (20:28)
[2021-03-13] MEDS: SODIUM CHLORIDE 0.9% 10ML FLUSH IV SCH (21:35)
[2021-03-14] MEDS: dexAMETHasone 6 MG in SYRINGE 0 ML IV SCH (08:22)
[2021-03-14] MEDS: ENOXAPARIN INJ 60 MG/0.6 ML SYR SQ SCH ×2 (08:22→20:12)
[2021-03-14] MEDS: RANOLAZINE 500 MG ER TAB PO SCH ×2 (08:23→20:12)
[2021-03-14] MEDS: ISOSORBIDE MONO EXTENDED REL 60 MG TABCR PO SCH (08:23)
[2021-03-14] MEDS: ROSUVASTATIN CALCIUM 20 MG TAB PO SCH (08:23)
[2021-03-14] MEDS: TOCOPHERYL, DL-ALPHA 100 UNITS CAP PO SCH (08:24)
[2021-03-14] MEDS: ATENOLOL 50 MG TABLET PO SCH (08:24)
[2021-03-14] MEDS: CLOPIDOGREL BISULFATE 75 MG TAB PO SCH (08:24)
[2021-03-14] MEDS: FLUTICASONE PROPIONATE NA SPR 16 GM BTL SCH (08:26)
[2021-03-14] MEDS: ASCORBIC ACID 500 MG TAB PO SCH (08:26)
[2021-03-14] MEDS: amLODIPine BESYLATE 5 MG TAB PO SCH (08:26)
[2021-03-14] MEDS ORDERED: FUROSEMIDE 20 MG in SYRINGE 0 ML IV ONE (08:30)
[2021-03-14] MEDS: INSULIN ASPART 100 UNITS/ML 3 ML PEN SC SCH ×4 (10:04→21:22)
--- NOTE | 2021-03-14 15:00 | Hospitalist Progress Note ---
Date of Service March 14, 2021 Assessment & Plan (1) Pneumonia due to COVID-19 virus: Plan: Patient presents with acute respiratory failure with hypoxia secondary to Covid pneumonia. O2 sats are 88% respiration rate was as high as 36 he improved symptomatically with supple pulmonal oxygen. He was brought in our facility for remdesivir and dexamethasone, a CRP will be checked in the morning. Patient is not vaccinated. Pt first had symptoms 03/07/21, he has had diarrhea now resolved, and alteration of taste and smell currently. continue dexamethasone 6mg IV daily, day 5 finish Remdesivir, day 5 oxygen requirements up slightly at 8L, still with normal effort, no distress encourage him to eat and drink, OOB in chair, lay prone gave dose of Lasix this morning, good response so far BMP in the morning CRP in morning (2) Acute respiratory failure with hypoxia: Plan: stable on 8L at rest, did not desaturate on walking in the room, no distress Lasix today to keep lungs dry (3) ALLISON (acute kidney injury): Plan: Cr was 1.9 on admission, little higher than normal, likely from poor oral intake and increased insensible losses from breathing heavy Cr down to 1.5 03/13, making urine, electrolytes stable, continue to monitor (4) Hyponatremia: Plan: likely from poor solute intake past few days Na up to 135 continue to monitor but now he is eating and drinking better (5) Presence of drug-eluting stent in left circumflex coronary artery: Plan: Patient with known history of coronary artery disease with both a CABG and drug- eluting stents. He typically has some stable angina but has not taken any prn nitrates recently. He maintains on atenolol 50, Plavix 75, isosorbide 120, Ranexa 500 twice daily and on rosuvastatin max dose 40 Patient also and amlodipine 2.5 no chest pain/pressure at this time (6) CKD (chronic kidney disease): Plan: Cr is stable at 1.5 03/13 repeat BMP in AM (7) Moderate aortic stenosis: Plan: has shrill murmur on exam, described as mild to moderate on echocardiogram of 2019 at that time he has preserved LV systolic function with basilar inferior hypokinesis with LVH (8) Prostate cancer: (9) Dyslipidemia: Plan: Is on rosuvastatin (10) DVT prophylaxis: Plan: Will be on Covid based DVT prevention 0.5 mg/kg subcu every 12 Admission and Anticipated Discharge Date Admission Date: March 10, 2021 Subjective patient frustrated that he is here, that his oxygen is going up to 8L mask he is not in distress, no longer coughing, eating okay, maybe 50% meals gave him Lasix this morning, good response discussed that he needs to be down to 2-3L to go home, he understands he will be here through the weekend, although he does not like it had some loose stools today Review of Systems Review of Systems: All systems reviewed & are unremarkable except as noted in Subjective Constitutional: no fever, no fatigue and no weakness Respiratory: + dyspnea on exertion; no cough and no dyspnea Cardiovascular: no chest pain and no edema Gastrointestinal: + diarrhea/loose stools; no abdominal pain, no nausea, no vomiting and no constipation Physical Exam Physical Exam: General: well developed, well nourished, no acute distress, comfortable, older male Neck: supple, trachea midline, normal thyroid Lungs: lungs clear, no crackles, no wheezing, normal respiratory effort, no accessory muscle use, no distress Heart: regular S1 and S2, systolic ejection murmur, peripheral pulses normal, capillary refill normal, no edema Abdomen: soft, NT, ND, + BS, no hepatomegaly, normal to percussion Extremities: normal in appearance, no cyanosis, no petechiae, strength is 5/5 bilaterally Neuro: awake, cooperative, moves all extremities, no focal motor deficits, CN II-XII intact, sensation in extremities intact, normal speech Skin: warm, dry, no rash, normal turgor Psych: Awake, alert oriented x 3, euthymic affect Results & Data Results & Data ([facility]) Vital Signs (Past 12 Hours) Vital Signs Temp Pulse Resp BP Pulse Ox 03/14/21 06:36 36.4 C L 56 L 15 166/73 H 92 Laboratory Results Laboratory Results - last 24 hr 03/13/21 03/13/21 03/14/21 17:27 20:25 08:56 POC Glucose 234 H 233 H 183 H 03/14/21 12:24 POC Glucose 251 H Medications Administered Current Inpatient Medications Acetaminophen (Acetaminophen 500 Mg Tab) 1,000 mg PO TID PRN PRN Reason: Pain or Fever Stop: 10/26/21 19:08 Al Hydrox/Mg Hydrox/Simethicone (Aluminum/Magnesium Susp 30 Ml Udc) 15 ml PO Q4H PRN PRN Reason: Dyspepsia Stop: 04/09/21 19:08 Amlodipine Besylate (Amlodipine Besylate 5 Mg Tab) 2.5 mg PO [facility] Stop: 04/10/21 08:59 Last Admin: 03/14/21 08:26 Dose: 2.5 mg Documented by: Ascorbic Acid (Ascorbic Acid 500 Mg Tab) 500 mg PO [facility] Stop: 04/10/21 08:59 Last Admin: 03/14/21 08:26 Dose: 500 mg Documented by: Atenolol (Atenolol 50 Mg Tablet) 50 mg PO [facility] Stop: 04/10/21 08:59 Last Admin: 03/14/21 08:24 Dose: 50 mg Documented by: Clopidogrel Bisulfate (Clopidogrel Bisulfate 75 Mg Tab) 75 mg PO [facility] Stop: 04/10/21 08:59 Last Admin: 03/14/21 08:24 Dose: 75 mg Documented by: Dextrose (Dextrose 50% 50 Ml Syringe) 25 - 50 ml IV UD PRN; Protocol PRN Reason: Hypoglycemia Protocol Stop: 04/10/21 15:59 Enoxaparin Sodium (Enoxaparin Inj 60 Mg/0.6 Ml Syr) 50 mg SQ Q12H [facility] Stop: 04/09/21 19:44 Last Admin: 03/14/21 08:22 Dose: 50 mg Documented by: Fluticasone Propionate (Fluticasone Propionate Na Spr 16 Gm Btl) 1 sprays NA [facility] Stop: 04/10/21 08:59 Last Admin: 03/14/21 08:26 Dose: 1 sprays Documented by: Glucagon (Glucagon For Inj 1 Mg Vial) 1 mg IM UD PRN; Protocol PRN Reason: Hypoglycemia Protocol Stop: 04/10/21 15:59 Glucose (Glucose 40% Gel 15 Gm Tube) 15 - 30 gm PO UD PRN; Protocol PRN Reason: Hypoglycemia Protocol Stop: 04/10/21 15:59 Glucose (Glucose 10 Tabs/Tube) 4 - 8 tabs PO UD PRN; Protocol PRN Reason: Hypoglycemia Protocol Stop: 04/10/21 15:59 Guaifenesin/Dextromethorphan (Guaifenesin/Dextrom Syrup 100mg/10mg 5ml Udc) 5 ml PO Q6H PRN PRN Reason: Cough Stop: 04/10/21 19:21 Last Admin: 03/12/21 20:25 Dose: 5 ml Documented by: Remdesivir 100 mg/ Sodium (Chloride) 250 mls @ 250 mls/hr IV Q24H [facility]; Protocol Stop: 03/14/21 20:59 Last Infusion: 03/13/21 21:35 Dose: Infused Documented by: Dexamethasone 6 mg/ Syringe 1.5 mls @ 1 mls/min IV DAILY [facility] Stop: 03/21/21 08:59 Last Admin: 03/14/21 08:22 Dose: 1 mls/min Documented by: Insulin Aspart (Insulin Aspart 100 Units/Ml 3 Ml Pen) 0 units SC ACHS [facility] Stop: 04/10/21 16:29 Last Admin: 03/14/21 13:34 Dose: 5 units Documented by: Isosorbide Mononitrate (Isosorbide [place] Extended Rel 60 Mg Tabcr) [facility] Stop: 04/10/21 08:59 Last Admin: 03/14/21 08:23 Dose: 120 mg Documented by: Menthol (Cough Drop (Sugar Free) Marlen 24 Marlen/1 Box) 1 marlen BUCCAL Q4H PRN PRN Reason: Sore Throat Stop: 04/10/21 19:21 Last Admin: 03/11/21 19:37 Dose: 1 marlen Documented by: Miscellaneous (Carbohydrates For Hypoglycemia ) 15 - 30 gm PO UD PRN PRN Reason: Hypoglycemia Treatment Stop: 04/10/21 15:59 Ondansetron HCl (Ondansetron Inj 2 Mg/Ml 2 Ml Vial) 4 mg IV Q6H PRN PRN Reason: Nausea Stop: 04/09/21 19:08 Ranolazine (Ranolazine 500 Mg Er Tab) 500 mg PO BID [facility] Stop: 04/09/21 20:59 Last Admin: 03/14/21 08:23 Dose: 500 mg Documented by: Rosuvastatin Calcium (Rosuvastatin Calcium 20 Mg Tab) [facility] [place] Stop: 04/10/21 08:59 Last Admin: 03/14/21 08:23 Dose: 40 mg Documented by: Vitamin E (Tocopheryl, Dl-Alpha 100 Units Cap) 200 [facility] [place] Stop: 04/10/21 08:59 Last Admin: 03/14/21 08:24 Dose: 200 units Documented by: PG Care Time/CCT Total # of Minutes Spent Total Time Spent with Patient: Total time spent is greater than 50% in coordination of care (as documented) at patient's floor/unit and/or counseling patient: Coding Level of Care Code 94356 Subseq Hosp Care Lvl 2 Diagnoses Pneumonia due to COVID-19 virus U07.1; J12.82 Acute respiratory failure with hypoxia J96.01 ALLISON (acute kidney injury) N17.9 Hyponatremia E87.1 Presence of drug-eluting stent in left circumflex coronary artery Z95.5 CKD (chronic kidney disease) N18.9 Moderate aortic stenosis I35.0 Prostate cancer C61 Dyslipidemia E78.5 DVT prophylaxis Z29.9
[2021-03-14] MEDS: REMDESIVIR 100 MG in SODIUM CHLORIDE 0.9% 230 ML IV SCH (20:12)
[2021-03-15 06:35] LABS: Hematocrit (blood only) 38.8 % (42-52); Hemoglobin 13.1 g/dL (14.0-18.0); Mean Corpuscular Hemoglobin 30.7 pg (25-34); Mean Corpuscular Hgb Conc 33.8 g/dL (32-36); Mean Corpuscular Volume 90.9 fL (80-100); Platelet Count 158 K/uL (130-400); RDW Coefficient of Variation 14.7 % (11.5-14.5); RDW Standard Deviation 49.1 fL (36.4-46.3); Red Blood Count 4.27 M/uL (4.7-6.1); White Blood Count 7.91 K/uL (4.8-10.8)
[2021-03-15 07:09] LABS: Albumin Level 2.5 gm/dl (3.4-5.0); BUN Creatinine Ratio 24.3 (10-20); Calcium 8.6 mg/dl (8.5-10.1); Creatinine Clr Calc Pharmacy 42.7 ml/min; Est GFR (African American) 47.6 ml/min; Est GFR (Non-African American) 41.1 ml/min; Potassium 4.4 mmol/L (3.5-5.1)
[2021-03-15 07:12] LABS: Albumin Globulin Ratio 0.7 (0.9-2); Bilirubin,Total 0.5 mg/dl (0.2-1); C Reactive Protein 1.76 mg/dl (0-0.29); Globulin 3.7 gm/dl (2.5-4.0); Total Protein 6.2 gm/dl (6.4-8.2)
[2021-03-15] MEDS ORDERED: FUROSEMIDE 20 MG in SYRINGE 0 ML IV ONE (08:45)
[2021-03-15] MEDS: RANOLAZINE 500 MG ER TAB PO SCH ×2 (08:47→21:08)
[2021-03-15] MEDS: ROSUVASTATIN CALCIUM 20 MG TAB PO SCH (08:47)
[2021-03-15] MEDS: amLODIPine BESYLATE 5 MG TAB PO SCH (08:47)
[2021-03-15] MEDS: ASCORBIC ACID 500 MG TAB PO SCH (08:47)
[2021-03-15] MEDS: dexAMETHasone 6 MG in SYRINGE 0 ML IV SCH (08:47)
[2021-03-15] MEDS: TOCOPHERYL, DL-ALPHA 100 UNITS CAP PO SCH (08:47)
[2021-03-15] MEDS: CLOPIDOGREL BISULFATE 75 MG TAB PO SCH (08:47)
[2021-03-15] MEDS: FLUTICASONE PROPIONATE NA SPR 16 GM BTL SCH (08:48)
[2021-03-15] MEDS: ENOXAPARIN INJ 60 MG/0.6 ML SYR SQ SCH ×2 (08:48→21:07)
[2021-03-15] MEDS: ISOSORBIDE MONO EXTENDED REL 60 MG TABCR PO SCH (08:48)
[2021-03-15] MEDS: INSULIN ASPART 100 UNITS/ML 3 ML PEN SC SCH ×4 (08:55→21:07)
[2021-03-15] MEDS: ATENOLOL 50 MG TABLET PO SCH (09:21)
--- NOTE | 2021-03-15 14:30 | Hospitalist Progress Note ---
Date of Service March 15, 2021 Assessment & Plan (1) Pneumonia due to COVID-19 virus: Plan: Patient presents with acute respiratory failure with hypoxia secondary to Covid pneumonia. O2 sats are 88% respiration rate was as high as 36 he improved symptomatically with supple pulmonal oxygen. He was brought in our facility for remdesivir and dexamethasone, a CRP will be checked in the morning. Patient is not vaccinated. Pt first had symptoms 03/07/21, he has had diarrhea now resolved, and alteration of taste and smell currently. continue dexamethasone 6mg IV daily, day 6 finished Remdesivir 03/14 oxygen requirements stable today at 8L, still with normal effort, no distress encourage him to eat and drink, OOB in chair, lay prone continue Lasix qAM, Cr stable at 1.5 BMP in the morning CRP is 1 today (2) Acute respiratory failure with hypoxia: Plan: stable on 8L at rest, did not desaturate on walking in the room, no distress Lasix again today to keep lungs dry (3) ALLISON (acute kidney injury): Plan: Cr was 1.9 on admission, little higher than normal, likely from poor oral intake and increased insensible losses from breathing heavy Cr down to 1.5 on 03/14 and 03/15, making urine, electrolytes stable, continue to monitor (4) Hyperglycemia: Plan: driven by dexamethasone will change goal to 110-140 correction factor 30, carb ratio 8 add NPH (5) Hyponatremia: Plan: likely from poor solute intake past few days resolved (6) Presence of drug-eluting stent in left circumflex coronary artery: Plan: Patient with known history of coronary artery disease with both a CABG and drug- eluting stents. He typically has some stable angina but has not taken any prn nitrates recently. He maintains on atenolol 50, Plavix 75, isosorbide 120, Ranexa 500 twice daily and on rosuvastatin max dose 40 Patient also and amlodipine 2.5 no chest pain/pressure at this time (7) CKD (chronic kidney disease): Plan: Cr is stable at 1.5 03/13 repeat BMP in AM (8) Moderate aortic stenosis: Plan: has shrill murmur on exam, described as mild to moderate on echocardiogram of 2019 at that time he has preserved LV systolic function with basilar inferior hypokinesis with LVH (9) Prostate cancer: (10) Dyslipidemia: Plan: Is on rosuvastatin (11) DVT prophylaxis: Plan: Will be on Covid based DVT prevention 0.5 mg/kg subcu every 12 Admission and Anticipated Discharge Date Admission Date: March 10, 2021 Subjective patient stable on 8L, which is what he was on yesterday he says he feels the same he wishes he could leave, he misses his family, says he is very active person and this is frustrating he is eating and drinking well reviewed labs, Cr stable, sugar a little high, will adjust insulin, add NPH t omorrow Review of Systems Review of Systems: All systems reviewed & are unremarkable except as noted in Subjective Physical Exam Physical Exam: General: well developed, well nourished, no acute distress, comfortable, older male Neck: supple, trachea midline, normal thyroid Lungs: lungs clear, no crackles, no wheezing, normal respiratory effort, no accessory muscle use, no distress Heart: regular S1 and S2, systolic ejection murmur, peripheral pulses normal, capillary refill normal, no edema Abdomen: soft, NT, ND, + BS, no hepatomegaly, normal to percussion Extremities: normal in appearance, no cyanosis, no petechiae, strength is 5/5 bilaterally Neuro: awake, cooperative, moves all extremities, no focal motor deficits, CN II-XII intact, sensation in extremities intact, normal speech Skin: warm, dry, no rash, normal turgor Psych: Awake, alert oriented x 3, euthymic affect Results & Data Results & Data ([facility]) Vital Signs (Past 12 Hours) Vital Signs Temp Pulse Resp BP Pulse Ox 03/15/21 07:08 36.6 C 53 L 16 160/83 H 93 Laboratory Results Laboratory Results - last 24 hr 03/14/21 03/14/21 03/14/21 17:05 20:33 20:33 WBC RBC Hgb Hct MCV MCH MCHC RDW Std Deviation RDW Coeff of Cody Plt Count MPV Sodium Potassium Chloride Carbon Dioxide Anion Gap BUN Creatinine Est Cr Clr Drug Dosing Est GFR ( Amer) Est GFR (Non-Af Amer) BUN/Creatinine Ratio Glucose POC Glucose 230 H 304 H* 308 H* Calcium Total Bilirubin AST ALT Alkaline Phosphatase C-Reactive Protein Total Protein Albumin Globulin Albumin/Globulin Ratio 03/14/21 03/15/21 03/15/21 23:41 05:30 05:30 WBC 7.91 RBC 4.27 L Hgb 13.1 L Hct 38.8 L MCV 90.9 MCH 30.7 MCHC 33.8 RDW Std Deviation 49.1 H RDW Coeff of Cody 14.7 H Plt Count 158 MPV 11.0 H Sodium 136 Potassium 4.4 Chloride 106 Carbon Dioxide 24 Anion Gap 6.0 BUN 38 H Creatinine 1.55 H Est Cr Clr Drug Dosing 42.7 Est GFR ( Amer) 47.6 Est GFR (Non-Af Amer) 41.1 BUN/Creatinine Ratio 24.3 H Glucose 227 H POC Glucose 260 H Calcium 8.6 Total Bilirubin 0.5 AST 59 H ALT 70 Alkaline Phosphatase 74 C-Reactive Protein 1.76 H Total Protein 6.2 L Albumin 2.5 L Globulin 3.7 Albumin/Globulin Ratio 0.7 L 03/15/21 03/15/21 08:00 12:08 WBC RBC Hgb Hct MCV MCH MCHC RDW Std Deviation RDW Coeff of Cody Plt Count MPV Sodium Potassium Chloride Carbon Dioxide Anion Gap BUN Creatinine Est Cr Clr Drug Dosing Est GFR ( Amer) Est GFR (Non-Af Amer) BUN/Creatinine Ratio Glucose POC Glucose 196 H 284 H Calcium Total Bilirubin AST ALT Alkaline Phosphatase C-Reactive Protein Total Protein Albumin Globulin Albumin/Globulin Ratio Medications Administered Current Inpatient Medications Acetaminophen (Acetaminophen 500 Mg Tab) 1,000 mg PO TID PRN PRN Reason: Pain or Fever Stop: 04/09/21 19:08 Al Hydrox/Mg Hydrox/Simethicone (Aluminum/Magnesium Susp 30 Ml Udc) 15 ml PO Q4H PRN PRN Reason: Dyspepsia Stop: 04/09/21 19:08 Amlodipine Besylate (Amlodipine Besylate 5 Mg Tab) [facility]: 04/10/21 08:59 Last Admin: 03/15/21 08:47 Dose: 2.5 mg Documented by: Ascorbic Acid (Ascorbic Acid 500 Mg Tab) [facility] [place] Stop: 04/10/21 08:59 Last Admin: 03/15/21 08:47 Dose: 500 mg Documented by: Atenolol (Atenolol 50 Mg Tablet) [facility] [place] Stop: 04/10/21 08:59 Last Admin: 03/15/21 09:21 Dose: Not Given Documented by: Clopidogrel Bisulfate (Clopidogrel Bisulfate 75 Mg Tab) 75 mg PO QAM [facility] Stop: 04/10/21 08:59 Last Admin: 03/15/21 08:47 Dose: 75 mg Documented by: Dextrose (Dextrose 50% 50 Ml Syringe) 25 - 50 ml IV UD PRN; Protocol PRN Reason: Hypoglycemia Protocol Stop: 04/10/21 15:59 Enoxaparin Sodium (Enoxaparin Inj 60 Mg/0.6 Ml Syr) 50 mg SQ Q12H [facility] Stop: 04/09/21 19:44 Last Admin: 03/15/21 08:48 Dose: 50 mg Documented by: Fluticasone Propionate (Fluticasone Propionate Na Spr 16 Gm Btl) 1 sprays NA [facility] Stop: 04/10/21 08:59 Last Admin: 03/15/21 08:48 Dose: 1 sprays Documented by: Glucagon (Glucagon For Inj 1 Mg Vial) 1 mg IM UD PRN; Protocol PRN Reason: Hypoglycemia Protocol Stop: 04/10/21 15:59 Glucose (Glucose 40% Gel 15 Gm Tube) 15 - 30 gm PO UD PRN; Protocol PRN Reason: Hypoglycemia Protocol Stop: 04/10/21 15:59 Glucose (Glucose 10 Tabs/Tube) 4 - 8 tabs PO UD PRN; Protocol PRN Reason: Hypoglycemia Protocol Stop: 04/10/21 15:59 Guaifenesin/Dextromethorphan (Guaifenesin/Dextrom Syrup 100mg/10mg 5ml Udc) 5 ml PO Q6H PRN PRN Reason: Cough Stop: 04/10/21 19:21 Last Admin: 03/12/21 20:25 Dose: 5 ml Documented by: Dexamethasone 6 mg/ Syringe 1.5 mls @ 1 mls/min IV DAILY [facility] Stop: 03/21/21 08:59 Last Admin: 03/15/21 08:47 Dose: 1 mls/min Documented by: Insulin Aspart (Insulin Aspart 100 Units/Ml 3 Ml Pen) 0 units SC ACHS [facility] Stop: 04/10/21 16:29 Last Admin: 03/15/21 13:16 Dose: 7 units Documented by: Isosorbide Mononitrate (Isosorbide [place] Extended Rel 60 Mg Tabcr) 120 mg PO QAM [facility] Stop: 04/10/21 08:59 Last Admin: 03/15/21 08:48 Dose: 120 mg Documented by: Menthol (Cough Drop (Sugar Free) Marlen 24 Marlen/1 Box) 1 marlen BUCCAL Q4H PRN PRN Reason: Sore Throat Stop: 04/10/21 19:21 Last Admin: 03/11/21 19:37 Dose: 1 marlen Documented by: Miscellaneous (Carbohydrates For Hypoglycemia ) 15 - 30 gm PO UD PRN PRN Reason: Hypoglycemia Treatment Stop: 04/10/21 15:59 Ondansetron HCl (Ondansetron Inj 2 Mg/Ml 2 Ml Vial) 4 mg IV Q6H PRN PRN Reason: Nausea Stop: 04/09/21 19:08 Ranolazine (Ranolazine 500 Mg Er Tab) 500 mg PO BID [facility] Stop: 04/09/21 20:59 Last Admin: 03/15/21 08:47 Dose: 500 mg Documented by: Rosuvastatin Calcium (Rosuvastatin Calcium 20 Mg Tab) 40 mg PO QAM [facility] Stop: 04/10/21 08:59 Last Admin: 03/15/21 08:47 Dose: 40 mg Documented by: Vitamin E (Tocopheryl, Dl-Alpha 100 Units Cap) 200 units PO QAM [facility] Stop: 04/10/21 08:59 Last Admin: 03/15/21 08:47 Dose: 200 units Documented by: PG Care Time/CCT Total # of Minutes Spent Total Time Spent with Patient: Total time spent is greater than 50% in coordination of care (as documented) at patient's floor/unit and/or counseling patient: Coding Level of Care Code 50712 Subseq Hosp Care Lvl 2 Diagnoses Pneumonia due to COVID-19 virus U07.1; J12.82 Acute respiratory failure with hypoxia J96.01 ALLISON (acute kidney injury) N17.9 Hyponatremia E87.1 Presence of drug-eluting stent in left circumflex coronary artery Z95.5 CKD (chronic kidney disease) N18.9 Moderate aortic stenosis I35.0 Prostate cancer C61 Dyslipidemia E78.5 DVT prophylaxis Z29.9 Hyperglycemia R73.9
[2021-03-16] MEDS: FLUTICASONE PROPIONATE NA SPR 16 GM BTL SCH (07:21)
[2021-03-16] MEDS: ATENOLOL 50 MG TABLET PO SCH (07:22)
[2021-03-16] MEDS: ROSUVASTATIN CALCIUM 20 MG TAB PO SCH (07:22)
[2021-03-16] MEDS: ASCORBIC ACID 500 MG TAB PO SCH (07:22)
[2021-03-16] MEDS: amLODIPine BESYLATE 5 MG TAB PO SCH (07:22)
[2021-03-16] MEDS: CLOPIDOGREL BISULFATE 75 MG TAB PO SCH (07:22)
[2021-03-16] MEDS: TOCOPHERYL, DL-ALPHA 100 UNITS CAP PO SCH (07:22)
[2021-03-16] MEDS: RANOLAZINE 500 MG ER TAB PO SCH ×2 (07:22→20:36)
[2021-03-16] MEDS: dexAMETHasone 6 MG in SYRINGE 0 ML IV SCH (07:22)
[2021-03-16] MEDS: ISOSORBIDE MONO EXTENDED REL 60 MG TABCR PO SCH (07:22)
[2021-03-16] MEDS: ENOXAPARIN INJ 60 MG/0.6 ML SYR SQ SCH ×2 (07:22→20:35)
[2021-03-16] MEDS ORDERED: INSULIN HUMAN NPH SC SCH (09:00)
[2021-03-16] MEDS: INSULIN ASPART 100 UNITS/ML 3 ML PEN SC SCH ×4 (09:44→21:46)
[2021-03-16] MEDS ORDERED: SODIUM CHLORIDE 0.65% NA SOLN 45 ML (OCEAN) PRN (13:51)
[2021-03-16] MEDS ORDERED: FUROSEMIDE 20 MG in SYRINGE 0 ML IV ONE (13:52)
--- NOTE | 2021-03-16 13:53 | Hospitalist Progress Note ---
Date of Service March 16, 2021 Assessment & Plan (1) Pneumonia due to COVID-19 virus: Plan: Patient presents with acute respiratory failure with hypoxia secondary to Covid pneumonia. O2 sats are 88% respiration rate was as high as 36 he improved symptomatically with supple pulmonal oxygen. He was brought in our facility for remdesivir and dexamethasone, a CRP will be checked in the morning. Patient is not vaccinated. Pt first had symptoms 03/07/21, he has had diarrhea now resolved, and alteration of taste and smell currently. continue dexamethasone 6mg IV daily, day 7 finished Remdesivir 03/14 oxygen requirements up slightly at 9-10L, still with normal effort, no distress encourage him to eat and drink, OOB in chair, lay prone continue Lasix qAM, Cr stable at 1.5 yesterday, repeat tomorrow CRP is 1 when last checked (2) Acute respiratory failure with hypoxia: Plan: stable on 9-10L at rest, did not desaturate on walking in the room, no distress Lasix again today to keep lungs dry (3) ALLISON (acute kidney injury): Plan: Cr was 1.9 on admission, little higher than normal, likely from poor oral intake and increased insensible losses from breathing heavy Cr down to 1.5 on 03/14 and 03/15, making urine, electrolytes stable, continue to monitor (4) Hyperglycemia: Plan: driven by dexamethasone will change goal to 110-140 correction factor 30, carb ratio 8 add NPH in the morning still a little high, lower correction to 20 (5) Hyponatremia: Plan: likely from poor solute intake past few days resolved (6) Presence of drug-eluting stent in left circumflex coronary artery: Plan: Patient with known history of coronary artery disease with both a CABG and drug- eluting stents. He typically has some stable angina but has not taken any prn nitrates recently. He maintains on atenolol 50, Plavix 75, isosorbide 120, Ranexa 500 twice daily and on rosuvastatin max dose 40 Patient also and amlodipine 2.5 no chest pain/pressure at this time (7) CKD (chronic kidney disease): Plan: Cr is stable at 1.5 03/13 repeat BMP in AM (8) Moderate aortic stenosis: Plan: has shrill murmur on exam, described as mild to moderate on echocardiogram of 2020 at that time he has preserved LV systolic function with basilar inferior hypokinesis with LVH (9) Prostate cancer: (10) Dyslipidemia: Plan: Is on rosuvastatin (11) DVT prophylaxis: Plan: Will be on Covid based DVT prevention 0.5 mg/kg subcu every 12 Admission and Anticipated Discharge Date Admission Date: March 10, 2021 Subjective patient says he feels the same as yesterday, he is up to 9-10L NC, no distress, minimal cough eating well, no change making urine with Lasix will get a CXR since his oxygen requirements slowly going up no chest pain, no fever, no chills, no diarrhea glucose riding high despite adding NPH and tightening Novolog Review of Systems Review of Systems: All systems reviewed & are unremarkable except as noted in Subjective Physical Exam Physical Exam: General: well developed, well nourished, no acute distress, comfortable, older male Neck: supple, trachea midline, normal thyroid Lungs: lungs clear, no crackles, no wheezing, normal respiratory effort, no accessory muscle use, no distress Heart: regular S1 and S2, systolic ejection murmur, peripheral pulses normal, capillary refill normal, no edema Abdomen: soft, NT, ND, + BS, no hepatomegaly, normal to percussion Extremities: normal in appearance, no cyanosis, no petechiae, strength is 5/5 bilaterally Neuro: awake, cooperative, moves all extremities, no focal motor deficits, CN II-XII intact, sensation in extremities intact, normal speech Skin: warm, dry, no rash, normal turgor Psych: Awake, alert oriented x 3, euthymic affect Results & Data Results & Data ([facility]) Vital Signs (Past 12 Hours) Vital Signs Temp Pulse Resp BP Pulse Ox 03/16/21 06:50 36.4 C L 55 L 18 171/79 H 93 Laboratory Results Laboratory Results - last 24 hr 03/15/21 03/15/21 03/16/21 16:59 20:53 07:48 POC Glucose 282 H 292 H 193 H 03/16/21 11:42 POC Glucose 293 H Medications Administered Current Inpatient Medications Acetaminophen (Acetaminophen 500 Mg Tab) 1,000 mg PO TID PRN PRN Reason: Pain or Fever Stop: 04/09/21 19:08 Al Hydrox/Mg Hydrox/Simethicone (Aluminum/Magnesium Susp 30 Ml Udc) 15 ml PO Q4H PRN PRN Reason: Dyspepsia Stop: 04/09/21 19:08 Amlodipine Besylate (Amlodipine Besylate 5 Mg Tab) 2.5 mg PO [facility] Stop: 04/10/21 08:59 Last Admin: 03/16/21 07:22 Dose: 5 mg Documented by: Ascorbic Acid (Ascorbic Acid 500 Mg Tab) 500 mg PO [facility] Stop: 04/10/21 08:59 Last Admin: 03/16/21 07:22 Dose: 500 mg Documented by: Atenolol (Atenolol 50 Mg Tablet) 50 mg PO [facility] Stop: 04/10/21 08:59 Last Admin: 03/16/21 07:22 Dose: 50 mg Documented by: Clopidogrel Bisulfate (Clopidogrel Bisulfate 75 Mg Tab) 75 mg PO [facility] Stop: 04/10/21 08:59 Last Admin: 03/16/21 07:22 Dose: 75 mg Documented by: Dextrose (Dextrose 50% 50 Ml Syringe) 25 - 50 ml IV UD PRN; Protocol PRN Reason: Hypoglycemia Protocol Stop: 04/10/21 15:59 Enoxaparin Sodium (Enoxaparin Inj 60 Mg/0.6 Ml Syr) 50 mg SQ Q12H [facility] Stop: 04/09/21 19:44 Last Admin: 03/16/21 07:22 Dose: 50 mg Documented by: Fluticasone Propionate (Fluticasone Propionate Na Spr 16 Gm Btl) 1 sprays NA [facility] Stop: 04/10/21 08:59 Last Admin: 03/16/21 07:21 Dose: 1 sprays Documented by: Glucagon (Glucagon For Inj 1 Mg Vial) 1 mg IM UD PRN; Protocol PRN Reason: Hypoglycemia Protocol Stop: 04/10/21 15:59 Glucose (Glucose 40% Gel 15 Gm Tube) 15 - 30 gm PO UD PRN; Protocol PRN Reason: Hypoglycemia Protocol Stop: 04/10/21 15:59 Glucose (Glucose 10 Tabs/Tube) 4 - 8 tabs PO UD PRN; Protocol PRN Reason: Hypoglycemia Protocol Stop: 04/10/21 15:59 Guaifenesin/Dextromethorphan (Guaifenesin/Dextrom Syrup 100mg/10mg 5ml Udc) 5 ml PO Q6H PRN PRN Reason: Cough Stop: 04/10/21 19:21 Last Admin: 03/12/21 20:25 Dose: 5 ml Documented by: Dexamethasone 6 mg/ Syringe 1.5 mls @ 1 mls/min IV DAILY [facility] Stop: 03/21/21 08:59 Last Admin: 03/16/21 07:22 Dose: 1 mls/min Documented by: Insulin Aspart (Insulin Aspart 100 Units/Ml 3 Ml Pen) 0 units SC ACHS [facility] Stop: 04/10/21 16:29 Last Admin: 03/16/21 13:15 Dose: 14 units Documented by: Insulin Human NPH (Insulin Human Nph) 30 units SC QAM [facility] Stop: 04/15/21 08:59 Last Admin: 03/16/21 09:44 Dose: 30 units Documented by: Isosorbide Mononitrate (Isosorbide [place] Extended Rel 60 Mg Tabcr) [facility] Stop: 04/10/21 08:59 Last Admin: 03/16/21 07:22 Dose: 120 mg Documented by: Menthol (Cough Drop (Sugar Free) Marlen 24 Marlen/1 Box) 1 marlen BUCCAL Q4H PRN PRN Reason: Sore Throat Stop: 04/10/21 19:21 Last Admin: 03/11/21 19:37 Dose: 1 marlen Documented by: Miscellaneous (Carbohydrates For Hypoglycemia ) 15 - 30 gm PO UD PRN PRN Reason: Hypoglycemia Treatment Stop: 04/10/21 15:59 Ondansetron HCl (Ondansetron Inj 2 Mg/Ml 2 Ml Vial) 4 mg IV Q6H PRN PRN Reason: Nausea Stop: 04/09/21 19:08 Ranolazine (Ranolazine 500 Mg Er Tab) 500 mg PO BID [facility] Stop: 04/09/21 20:59 Last Admin: 03/16/21 07:22 Dose: 500 mg Documented by: Rosuvastatin Calcium (Rosuvastatin Calcium 20 Mg Tab) 40 mg PO QAM [facility] Stop: 04/10/21 08:59 Last Admin: 03/16/21 07:22 Dose: 40 mg Documented by: Sodium Chloride (Sodium Chloride 0.65% Na Soln 45 Ml ([place])) 1 sprays NA Q1H PRN PRN Reason: dry nose Stop: 04/15/21 13:50 Vitamin E (Tocopheryl, Dl-Alpha 100 Units Cap) 200 units PO QAM [facility] Stop: 04/10/21 08:59 Last Admin: 03/16/21 07:22 Dose: 200 units Documented by: PG Care Time/CCT Total # of Minutes Spent Total Time Spent with Patient: Total time spent is greater than 50% in coordination of care (as documented) at patient's floor/unit and/or counseling patient: Coding Level of Care Code 09913 Subseq Hosp Care Lvl 2 Diagnoses Pneumonia due to COVID-19 virus U07.1; J12.82 Acute respiratory failure with hypoxia J96.01 ALLISON (acute kidney injury) N17.9 Hyperglycemia R73.9 Hyponatremia E87.1 Presence of drug-eluting stent in left circumflex coronary artery Z95.5 CKD (chronic kidney disease) N18.9 Moderate aortic stenosis I35.0 Prostate cancer C61 Dyslipidemia E78.5 DVT prophylaxis Z29.9
[2021-03-16] MEDS ORDERED: FUROSEMIDE 40 MG/4 ML VIAL IV ONE (14:00)
--- NOTE | 2021-03-16 15:18 | XRay Report ---
XR chest 1V portable INDICATION: [place] ^Y ^covid, hypoxia. TECHNIQUE: Single frontal radiograph of the chest was obtained. Comparison: Comparison is made to chest one view 03/13/2021 FINDINGS: Median sternotomy wires and postsurgical changes are unremarkable. The cardiomediastinal silhouette i s stable. The demonstration multifocal airspace opacities. No evidence of pleural effusion or pneumot horax. IMPRESSION: Multiple airspace opacities, stable to minimally improved from prior exam, compatible with history of viral pneumonia. ACT 112: Negative or not required by law. Electronically signed by: Darinel Bond M.D. 03/16/2021 3:16 PM
[2021-03-16] MEDS ORDERED: INSULIN HUMAN REGULAR PER UNIT 4 UNITS in SYRINGE 3.96 ML IV STA (16:56)
[2021-03-17] MEDS ORDERED: INSULIN HUMAN NPH SC SCH (09:00)
--- NOTE | 2021-03-17 09:00 | Hospitalist Progress Note ---
Date of Service March 17, 2021 Assessment & Plan (1) Pneumonia due to COVID-19 virus: Plan: Patient presents with acute respiratory failure with hypoxia secondary to Covid pneumonia. O2 sats are 88% respiration rate was as high as 36 he improved symptomatically with supple pulmonal oxygen. He was brought in our facility for remdesivir and dexamethasone, a CRP will be checked in the morning. Patient is not vaccinated. Pt first had symptoms 03/07/21, he has had diarrhea now resolved, and alteration of taste and smell currently. continue dexamethasone 6mg IV daily, day 8 finished Remdesivir 03/14 oxygen requirements up slightly at 10L, still with normal effort, no distress, speaking in full sentences encourage him to eat and drink, OOB in chair, lay prone encouraged he and his to be patient, he will get better, just needs more time hope by the end of the week he will be down to 2-3L and can go home will give Lasix again today CRP is 1 when last checked (2) Acute respiratory failure with hypoxia: Plan: stable on 10L at rest sitting upright in chair, laying on his side when able to, cannot lay prone Lasix again today to keep lungs dry (3) ALLISON (acute kidney injury): Plan: Cr was 1.9 on admission, little higher than normal, likely from poor oral intake and increased insensible losses from breathing heavy Cr down to 1.6 today, give a dose of Lasix 20mg IV today (4) Hyperglycemia: Plan: driven by dexamethasone goal 110-140 sugars still up this morning tightened correction factor to 20, carb ratio to 5 added Lantus 10 units increased NPH to 40 still hit > 300 in the afternoon will consult pharmacy at this point for help with management (5) Hyponatremia: Plan: likely from poor solute intake past few days resolved (6) Presence of drug-eluting stent in left circumflex coronary artery: Plan: Patient with known history of coronary artery disease with both a CABG and drug- eluting stents. He typically has some stable angina but has not taken any prn nitrates recently. He maintains on atenolol 50, Plavix 75, isosorbide 120, Ranexa 500 twice daily and on rosuvastatin max dose 40 Patient also and amlodipine 2.5 no chest pain/pressure at this time (7) CKD (chronic kidney disease): Plan: Cr is stable at 1.6 on 03/17 repeat BMP in AM (8) Moderate aortic stenosis: Plan: has shrill murmur on exam, described as mild to moderate on echocardiogram of 2019 at that time he has preserved LV systolic function with basilar inferior hypokinesis with LVH (9) Prostate cancer: (10) Dyslipidemia: Plan: Is on rosuvastatin (11) DVT prophylaxis: Plan: Will be on Covid based DVT prevention 0.5 mg/kg subcu every 12 Plan: try to discharge later this week once oxygen down to 2-3L Admission and Anticipated Discharge Date Admission Date: March 10, 2021 Subjective patient remains on 10L he is getting depressed being here, misses his of 58 years, misses his home, misses working as a building operator explained that this is normal, it could be worse, he could be on much more oxygen he is speaking in full sentences, breathing comfortably he is eating well sugars continue to be a problem even after adding Lantus 10, increasing NPH to 40 and tightening coverage he still hit 300 this afternoon will consult pharmacy to help manage updated his over the phone, she is now asking for daily phone calls as it helps her Review of Systems Review of Systems: All systems reviewed & are unremarkable except as noted in Subjective Psychiatric: + depression Physical Exam Physical Exam: General: well developed, well nourished, no acute distress, comfortable, older male Neck: supple, trachea midline, normal thyroid Lungs: lungs clear, no crackles, no wheezing, normal respiratory effort, no accessory muscle use, no distress Heart: regular S1 and S2, systolic ejection murmur, peripheral pulses normal, capillary refill normal, no edema Abdomen: soft, NT, ND, + BS, no hepatomegaly, normal to percussion Extremities: normal in appearance, no cyanosis, no petechiae, strength is 5/5 bilaterally Neuro: awake, cooperative, moves all extremities, no focal motor deficits, CN II-XII intact, sensation in extremities intact, normal speech Skin: warm, dry, no rash, normal turgor Psych: Awake, alert oriented x 3, euthymic affect Results & Data Results & Data ([facility]) Vital Signs (Past 12 Hours) Vital Signs Temp Pulse Resp BP Pulse Ox 03/17/21 08:14 36.3 C L 53 L 16 144/75 H 93 03/16/21 23:24 36.4 C L 55 L 14 123/70 94 Laboratory Results Laboratory Results - last 24 hr 03/16/21 03/16/21 03/16/21 11:42 16:39 16:40 POC Glucose 293 H 320 H* 358 H* 03/16/21 03/16/21 03/16/21 16:42 20:30 20:31 POC Glucose 283 H 319 H* 313 H* 03/17/21 08:02 POC Glucose 117 H Medications Administered Current Inpatient Medications Acetaminophen (Acetaminophen 500 Mg Tab) 1,000 mg PO TID PRN PRN Reason: Pain or Fever Stop: 04/09/21 19:08 Al Hydrox/Mg Hydrox/Simethicone (Aluminum/Magnesium Susp 30 Ml Udc) 15 ml PO Q4H PRN PRN Reason: Dyspepsia Stop: 04/09/21 19:08 Amlodipine Besylate (Amlodipine Besylate 5 Mg Tab) 2.5 mg PO [facility] Stop: 04/10/21 08:59 Last Admin: 03/16/21 07:22 Dose: 5 mg Documented by: Ascorbic Acid (Ascorbic Acid 500 Mg Tab) 500 mg PO [facility] Stop: 04/10/21 08:59 Last Admin: 03/16/21 07:22 Dose: 500 mg Documented by: Atenolol (Atenolol 50 Mg Tablet) 50 mg PO [facility] Stop: 04/10/21 08:59 Last Admin: 03/16/21 07:22 Dose: 50 mg Documented by: Clopidogrel Bisulfate (Clopidogrel Bisulfate 75 Mg Tab) 75 mg PO [facility] Stop: 04/10/21 08:59 Last Admin: 03/16/21 07:22 Dose: 75 mg Documented by: Dextrose (Dextrose 50% 50 Ml Syringe) 25 - 50 ml IV UD PRN; Protocol PRN Reason: Hypoglycemia Protocol Stop: 04/10/21 15:59 Enoxaparin Sodium (Enoxaparin Inj 60 Mg/0.6 Ml Syr) 50 mg SQ Q12H [facility] Stop: 04/09/21 19:44 Last Admin: 03/16/21 20:35 Dose: 50 mg Documented by: Fluticasone Propionate (Fluticasone Propionate Na Spr 16 Gm Btl) 1 sprays NA [facility] Stop: 04/10/21 08:59 Last Admin: 03/16/21 07:21 Dose: 1 sprays Documented by: Glucagon (Glucagon For Inj 1 Mg Vial) 1 mg IM UD PRN; Protocol PRN Reason: Hypoglycemia Protocol Stop: 04/10/21 15:59 Glucose (Glucose 40% Gel 15 Gm Tube) 15 - 30 gm PO UD PRN; Protocol PRN Reason: Hypoglycemia Protocol Stop: 04/10/21 15:59 Glucose (Glucose 10 Tabs/Tube) 4 - 8 tabs PO UD PRN; Protocol PRN Reason: Hypoglycemia Protocol Stop: 04/10/21 15:59 Guaifenesin/Dextromethorphan (Guaifenesin/Dextrom Syrup 100mg/10mg 5ml Udc) 5 ml PO Q6H PRN PRN Reason: Cough Stop: 04/10/21 19:21 Last Admin: 03/12/21 20:25 Dose: 5 ml Documented by: Dexamethasone 6 mg/ Syringe 1.5 mls @ 1 mls/min IV DAILY [facility] Stop: 03/21/21 08:59 Last Admin: 03/16/21 07:22 Dose: 1 mls/min Documented by: Insulin Aspart (Insulin Aspart 100 Units/Ml 3 Ml Pen) 0 units SC [facility] Stop: 04/10/21 16:29 Last Admin: 03/16/21 21:46 Dose: 6 units Documented by: Insulin Glargine (Insulin Glargine Solostar 100 Units/Ml 3 Ml Pen) 10 units SC QAM [facility] Stop: 04/16/21 08:59 Insulin Human NPH (Insulin Human Nph) 40 units SC [facility] Stop: 04/16/21 08:59 Isosorbide Mononitrate (Isosorbide [place] Extended Rel 60 Mg Tabcr) 120 mg PO QAM [facility] Stop: 04/10/21 08:59 Last Admin: 03/16/21 07:22 Dose: 120 mg Documented by: Menthol (Cough Drop (Sugar Free) Marlen 24 Marlen/1 Box) 1 marlen BUCCAL Q4H PRN PRN Reason: Sore Throat Stop: 04/10/21 19:21 Last Admin: 03/11/21 19:37 Dose: 1 marlen Documented by: Miscellaneous (Carbohydrates For Hypoglycemia ) 15 - 30 gm PO UD PRN PRN Reason: Hypoglycemia Treatment Stop: 04/10/21 15:59 Ondansetron HCl (Ondansetron Inj 2 Mg/Ml 2 Ml Vial) 4 mg IV Q6H PRN PRN Reason: Nausea Stop: 04/09/21 19:08 Ranolazine (Ranolazine 500 Mg Er Tab) 500 mg PO BID [facility] Stop: 04/09/21 20:59 Last Admin: 03/16/21 20:36 Dose: 500 mg Documented by: Rosuvastatin Calcium (Rosuvastatin Calcium 20 Mg Tab) 40 mg PO QAM [facility] Stop: 04/10/21 08:59 Last Admin: 03/16/21 07:22 Dose: 40 mg Documented by: Sodium Chloride (Sodium Chloride 0.65% Na Soln 45 Ml ([place])) 1 sprays NA Q1H PRN PRN Reason: dry nose Stop: 04/15/21 13:50 Vitamin E (Tocopheryl, Dl-Alpha 100 Units Cap) 200 units PO QAM [facility] Stop: 04/10/21 08:59 Last Admin: 03/16/21 07:22 Dose: 200 units Documented by: PG Care Time/CCT Total # of Minutes Spent Total Time Spent with Patient: Total time spent is greater than 50% in coordination of care (as documented) at patient's floor/unit and/or counseling p atient: Coding Level of Care Code 55043 Subseq Hosp Care Lvl 3 Diagnoses Pneumonia due to COVID-19 virus U07.1; J12.82 Acute respiratory failure with hypoxia J96.01 ALLISON (acute kidney injury) N17.9 Hyperglycemia R73.9 Hyponatremia E87.1 Presence of drug-eluting stent in left circumflex coronary artery Z95.5 CKD (chronic kidney disease) N18.9 Moderate aortic stenosis I35.0 Prostate cancer C61 Dyslipidemia E78.5 DVT prophylaxis Z29.9
[2021-03-17] MEDS: ATENOLOL 50 MG TABLET PO SCH (09:19)
[2021-03-17] MEDS: RANOLAZINE 500 MG ER TAB PO SCH ×2 (09:19→21:15)
[2021-03-17] MEDS: amLODIPine BESYLATE 5 MG TAB PO SCH (09:20)
[2021-03-17] MEDS: CLOPIDOGREL BISULFATE 75 MG TAB PO SCH (09:20)
[2021-03-17] MEDS: dexAMETHasone 6 MG in SYRINGE 0 ML IV SCH (09:20)
[2021-03-17] MEDS: ASCORBIC ACID 500 MG TAB PO SCH (09:20)
[2021-03-17] MEDS: ISOSORBIDE MONO EXTENDED REL 60 MG TABCR PO SCH (09:21)
[2021-03-17] MEDS: TOCOPHERYL, DL-ALPHA 100 UNITS CAP PO SCH (09:21)
[2021-03-17] MEDS: ENOXAPARIN INJ 60 MG/0.6 ML SYR SQ SCH ×2 (09:21→21:13)
[2021-03-17] MEDS: FLUTICASONE PROPIONATE NA SPR 16 GM BTL SCH (09:23)
[2021-03-17] MEDS: ROSUVASTATIN CALCIUM 20 MG TAB PO SCH (09:25)
[2021-03-17] MEDS: INSULIN ASPART 100 UNITS/ML 3 ML PEN SC SCH ×4 (09:27→21:15)
[2021-03-17] MEDS: INSULIN GLARGINE SOLOSTAR 100 UNITS/ML 3 ML PEN SC SCH (10:32)
[2021-03-17 11:11] LABS: Hematocrit (blood only) 41.1 % (42-52); Hemoglobin 13.7 g/dL (14.0-18.0); Mean Corpuscular Hemoglobin 30.9 pg (25-34); Mean Corpuscular Hgb Conc 33.3 g/dL (32-36); Mean Corpuscular Volume 92.6 fL (80-100); Mean Platelet Volume 10.9 fL (7.4-10.4); Platelet Count 171 K/uL (130-400); RDW Coefficient of Variation 14.3 % (11.5-14.5); Red Blood Count 4.44 M/uL (4.7-6.1); White Blood Count 8.66 K/uL (4.8-10.8)
[2021-03-17 11:39] LABS: BUN Creatinine Ratio 26.3 (10-20); C Reactive Protein 0.77 mg/dl (0-0.29); Calcium 8.9 mg/dl (8.5-10.1); Creatinine Clr Calc Pharmacy 39.9 ml/min; Est GFR (African American) 43.8 ml/min; Est GFR (Non-African American) 37.8 ml/min; Magnesium 2.3 mg/dl (1.8-2.4); Potassium 4.2 mmol/L (3.5-5.1)
[2021-03-17] MEDS ORDERED: FUROSEMIDE 20 MG in SYRINGE 0 ML IV ONE (14:30)
[2021-03-17] MEDS ORDERED: PHARMACY GLYCEMIC MGMT CONSULT PRN (17:51)
[2021-03-18] MEDS: INSULIN ASPART 100 UNITS/ML 3 ML PEN SC SCH ×6 (00:30→21:07)
[2021-03-18] MEDS ORDERED: INSULIN HUMAN NPH SC SCH (09:00)
[2021-03-18] MEDS: amLODIPine BESYLATE 5 MG TAB PO SCH (09:48)
[2021-03-18] MEDS: ATENOLOL 50 MG TABLET PO SCH (09:48)
[2021-03-18] MEDS: ASCORBIC ACID 500 MG TAB PO SCH (09:49)
[2021-03-18] MEDS: CLOPIDOGREL BISULFATE 75 MG TAB PO SCH (09:49)
[2021-03-18] MEDS: TOCOPHERYL, DL-ALPHA 100 UNITS CAP PO SCH (09:50)
[2021-03-18] MEDS: dexAMETHasone 6 MG in SYRINGE 0 ML IV SCH (09:51)
[2021-03-18] MEDS: ENOXAPARIN INJ 60 MG/0.6 ML SYR SQ SCH ×2 (09:51→21:06)
[2021-03-18] MEDS: INSULIN GLARGINE SOLOSTAR 100 UNITS/ML 3 ML PEN SC SCH (09:52)
[2021-03-18] MEDS: RANOLAZINE 500 MG ER TAB PO SCH ×2 (09:53→21:07)
[2021-03-18] MEDS: ISOSORBIDE MONO EXTENDED REL 60 MG TABCR PO SCH (09:53)
[2021-03-18] MEDS: ROSUVASTATIN CALCIUM 20 MG TAB PO SCH (09:53)
[2021-03-18] MEDS: FLUTICASONE PROPIONATE NA SPR 16 GM BTL SCH (09:56)
--- NOTE | 2021-03-18 14:12 | Pharmacy Report ---
Pharmacy Glycemic Short Note 2 - Date of Service March 18, 2021 - Glycemic Short BSG Results (Last 24 hours): 03/17/21 03/17/21 03/18/21 17:21 20:57 00:18 POC Glucose 306 H* 254 H 147 H 03/18/21 03/18/21 03/18/21 04:02 08:05 12:12 POC Glucose 108 H 121 H 175 H OUTPATIENT ANTIDIABETIC REGIMEN: * N/A ASSESSMENT: * Mr Arora is an 80 y/o M admitted with COVID19. He is not on diabetic medication s at home. HbA1C ordered. * Yesterday patient's BSGs were [phone] and overnight were 147-108 mg/dL. Fasting is 121 mg/dL. * Patient received a total of 89 units of insulin (50 units of basal with 10 units of Lantus and 40 units of NPH) and 39 units of bolus. * Increase NPH by 20% to 50 units. Tighten CR since BSGs trend upwards throughout the day. * Fasting stable so continue NPH. PLAN FOR INPATIENT GLYCEMIC CONTROL: * Basal insulin * Lantus 10 units SQ daily * NPH 50 units daily * Bolus insulin * NovoLog per scale ACHS or Q6hrs while NPO * Goal Range: Low 110 mg/dL - High 140 mg/dL * Correction Factor: 15 mg/dL/unit * Nutritional / Prandial insulin per carb ratio of 1 unit per 3 grams CHO consumed PLAN FOR DISCHARGE: * HbA1C ordered
[2021-03-18] MEDS: MELATONIN 3 MG TAB PO SCH (21:06)
--- NOTE | 2021-03-18 22:56 | Hospitalist Progress Note ---
Date of Service March 18, 2021 Assessment & Plan (1) Pneumonia due to COVID-19 virus: Plan: severe. slowly improving. day #1 of illness - 03/07/21 continue dexamethasone 6mg IV daily, day 9 of 10 today finished Remdesivir 03/14 no evidence today of complicating CHF or bacterial superinfection VTE not suspected either encouragement given to patient that the recovery phase is often slow and tedious cont pulm toilet prone or side position if possible when in bed PT consult DVT proph w/ lovenox BID (2) Acute respiratory failure with hypoxia: Plan: 2nd to #1 above slow improvement cont supportive care (3) ALLISON (acute kidney injury): Plan: peak Cr was 1.9 on admission most recent Cr 1.6 (near baseline) BMP am (4) Hyperglycemia: Plan: pharmacy managing a1c pending labile BSGs due to steroids, stress of illness, etc. dx - T2DM, uncontrolled (5) Hyponatremia: Plan: resolved (6) Presence of drug-eluting stent in left circumflex coronary artery: Plan: Patient with known history of coronary artery disease with both a CABG and drug- eluting stents. Continue atenolol 50, Plavix 75, isosorbide 120, Ranexa 500 twice daily, rosuvastatin 40mg daily. No issues, no ischemic symptoms. (7) CKD (chronic kidney disease): Plan: Cr is stable at 1.6 on 03/17 repeat BMP in AM baseline CrCl c/w STAGE 3b (8) Moderate aortic stenosis: Plan: no evidence of complicating CHF (9) Prostate cancer: Plan: history of (10) Dyslipidemia: Plan: statin agent (11) DVT prophylaxis: Plan: lovenox 0.5 mg/kg subcu every 12 Plan: insomnia - melatonin PT consult updated pt's by phone this evening, questions answered Admission and Anticipated Discharge Date Admission Date: March 10, 2021 Subjective patient sitting in chair by window looks despondent - admits to feeling very down, lonely, not sleeping well, anxious to get home denies dyspnea at rest or w/ exertion minimal cough appetite "ok" no chest pain no abd pain attempts to wean NC O2 not successful today Review of Systems Review of Systems: gen - no fever or chills CV - no chest pain or orthopnea pulm - no wheezing GI - no n/v/d; no bowel movement in 5 days? Physical Exam Physical Exam: gen - NAD, looks depressed, looks tired mouth - MMM neck - no JVD heart - RRR, s1 s2, 2-3/6 systolic murmur RUSB lungs - minimal rales bases, decreased BS bases, no wheeze, no distress abd - soft NT BS+; mild distension ext - no edema vasc - pulses feet 2+ b/l psych - a/o x3, restricted affect Results & Data Results & Data ([facility]) Vital Signs (Past 12 Hours) Vital Signs Temp Pulse Resp BP Pulse Ox 03/18/21 22:09 36.3 C L 55 L 22 122/71 95 03/18/21 16:11 36.6 C 54 L 16 132/78 94 Laboratory Results Laboratory Results - last 24 hr 03/18/21 03/18/21 03/18/21 00:18 04:02 08:05 POC Glucose 147 H 108 H 121 H 03/18/21 03/18/21 03/18/21 12:12 17:08 20:49 POC Glucose 175 H 163 H 223 H PG Care Time/CCT Total # of Minutes Spent Total Time Spent with Patient: Total time spent is greater than 50% in coordination of care (as documented) at patient's floor/unit and/or counseling patient: Coding Level of Care Code 19691 Subseq Hosp Care Lvl 2 Diagnoses Pneumonia due to COVID-19 virus U07.1; J12.82 Acute respiratory failure with hypoxia J96.01 ALLISON (acute kidney injury) N17.9 Hyperglycemia R73.9 Hyponatremia E87.1 Presence of drug-eluting stent in left circumflex coronary artery Z95.5 CKD (chronic kidney disease) N18.9 Moderate aortic stenosis I35.0 Prostate cancer C61 Dyslipidemia E78.5 DVT prophylaxis Z29.9
[2021-03-19] MEDS ORDERED: INSULIN HUMAN NPH SC SCH (09:00)
[2021-03-19 09:04] LABS: BUN Creatinine Ratio 29.2 (10-20); Calcium 9.2 mg/dl (8.5-10.1); Creatinine Clr Calc Pharmacy 40.1 ml/min; Est GFR (African American) 44.1 ml/min; Est GFR (Non-African American) 38.1 ml/min; Potassium 4.4 mmol/L (3.5-5.1)
[2021-03-19] MEDS: INSULIN ASPART 100 UNITS/ML 3 ML PEN SC SCH ×4 (09:09→20:37)
[2021-03-19] MEDS: ENOXAPARIN INJ 60 MG/0.6 ML SYR SQ SCH ×2 (09:10→20:36)
[2021-03-19] MEDS: CLOPIDOGREL BISULFATE 75 MG TAB PO SCH (09:11)
[2021-03-19] MEDS: amLODIPine BESYLATE 5 MG TAB PO SCH (09:12)
[2021-03-19] MEDS: ISOSORBIDE MONO EXTENDED REL 60 MG TABCR PO SCH (09:12)
[2021-03-19] MEDS: TOCOPHERYL, DL-ALPHA 100 UNITS CAP PO SCH (09:13)
[2021-03-19] MEDS: ASCORBIC ACID 500 MG TAB PO SCH (09:13)
[2021-03-19] MEDS: ATENOLOL 50 MG TABLET PO SCH (09:13)
[2021-03-19] MEDS: RANOLAZINE 500 MG ER TAB PO SCH ×2 (09:14→20:38)
[2021-03-19] MEDS: ROSUVASTATIN CALCIUM 20 MG TAB PO SCH (09:14)
[2021-03-19] MEDS ORDERED: bisacodyL 5 MG TABEC PO ONE ×2 (09:15→13:02)
[2021-03-19] MEDS: FLUTICASONE PROPIONATE NA SPR 16 GM BTL SCH (09:15)
[2021-03-19] MEDS: dexAMETHasone 6 MG in SYRINGE 0 ML IV SCH (09:15)
[2021-03-19 09:16] LABS: Estimated Average Glucose 200 mg/dl; Hemoglobin A1C 8.6 % (4.5-5.6)
--- NOTE | 2021-03-19 11:44 | Pharmacy Report ---
Pharmacy Glycemic Short Note 2 - Date of Service March 19, 2021 - Glycemic Short BSG Results (Last 24 hours): 03/18/21 03/18/21 03/18/21 12:12 17:08 20:49 Glucose POC Glucose 175 H 163 H 223 H 03/19/21 03/19/21 08:14 08:17 Glucose 91 POC Glucose 88 OUTPATIENT ANTIDIABETIC REGIMEN: * N/A ASSESSMENT: 03/19 * Patient's blood sugars yesterday were [phone] mg/dL. * Fasting today is 88 mg/dL. * Patient received 105 units of insulin (60 units of basal with 10 units of Lantus and 50 units of NPH and 45 units of bolus) yesterday. * Due to decreasing fasting BSGs, d/c Lantus. Increase NPH to 60 units as patient's BSGs still trended upwards * Continue Novolog. May eventually tighten CR. Background * Mr Arora is an 80 y/o M admitted with COVID19. He is not on diabetic medications at home. HbA1C ordered. * Yesterday patient's BSGs were [phone] and overnight were 147-108 mg/dL. Fasting is 121 mg/dL. * Patient received a total of 89 units of insulin (50 units of basal with 10 units of Lantus and 40 units of NPH) and 39 units of bolus. * Increase NPH by 20% to 50 units. Tighten CR since BSGs trend upwards throughout the day. * Fasting stable so continue NPH. PLAN FOR INPATIENT GLYCEMIC CONTROL: * Basal insulin * Lantus- d/c * NPH 60 units daily * Bolus insulin * NovoLog per scale ACHS or Q6hrs while NPO * Goal Range: Low 110 mg/dL - High 140 mg/dL * Correction Factor: 15 mg/dL/unit * Nutritional / Prandial insulin per carb ratio of 1 unit per 3 grams CHO consumed PLAN FOR DISCHARGE: * HbA1C = 8.6% which is above goal of < 8% for patient. * Recommendations TBD once discharge plans are set.
[2021-03-19] MEDS: POLYETHYLENE (MIRALAX) 17 GM PACK PO SCH ×2 (13:10→20:39)
[2021-03-19] MEDS ORDERED: OPTIRAY 320 125ml IV ONE (14:15)
--- NOTE | 2021-03-19 14:32 | CT Scan Report ---
CT angio chest PE protocol INDICATION: [place] ^2:15 COVID ^COVID-19 pneumonia, persistent hypoxia; eval PE. TECHNIQUE: Multidetector row helical CT of the chest was performed. Coronal and sagittal reformations were obtained. Automated dose lowering techniques and/or adjustment according to patient size were u tilized for this exam. Comparison: Comparison is made to CT abdomen and pelvis 03/26/2015 FINDINGS: Lungs and pleura: Bilateral atelectasis and groundglass opacities are seen, present in multiple lobes . There is a left pleural-based mass measuring 49 x 23 mm with adjacent calcifications. Heart and pericardium: Cardiomegaly is seen with biatrial enlargement. Vessels: No evidence of pulmonary embolism. Mediastinum and naina: Unremarkable. Chest wall and lower neck: Unremarkable. Abdomen: Unremarkable. Bones: Degenerative changes in the thoracic spine. IMPRESSION: 1. No evidence of pulmonary embolism. 2. Multifocal groundglass opacities compatible with history of viral pneumonia. 3. Left pleural-based mass with adjacent calcifications has slowly increased in size from 2015. ACT 112: Negative or not required by law. Electronically signed by: Darinel Bond M.D. 03/19/2021 2:31 PM
[2021-03-19] MEDS: MELATONIN 3 MG TAB PO SCH (20:38)
[2021-03-19] MEDS ORDERED: SODIUM CHLORIDE 0.9% 500 ML IV SCH (20:45)
--- NOTE | 2021-03-19 22:35 | Hospitalist Progress Note ---
Date of Service March 19, 2021 Assessment & Plan (1) Pneumonia due to COVID-19 virus: Plan: mod-severe. slowly improving. day #1 of illness - 03/07/21 peak O2 requirement was 10 L. continue dexamethasone 6mg IV daily, day 10 of 10 today finished Remdesivir 03/14 no evidence of complicating CHF or bacterial superinfection CTA chest today --- NO PE cont pulm toilet prone or side position if possible when in bed PT consult DVT proph w/ lovenox BID (2) Acute respiratory failure with hypoxia: Plan: 2nd to #1 above slow improvement but [id number] he is improving cont supportive care (3) ALLISON (acute kidney injury): Plan: peak Cr was 1.9 on admission most recent Cr 1.6 (near baseline) BMP am will give 500cc of NS following the contrast load for his CTA (4) Hyperglycemia: Plan: pharmacy managing a1c 8.6% labile BSGs due to steroids, stress of illness, etc. 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 Continue atenolol 50, Plavix 75, isosorbide 120, Ranexa 500 twice daily, rosuvastatin 40mg daily. No issues, no ischemic symptoms. (7) CKD (chronic kidney disease): Plan: [place] CrCl c/w STAGE 3b bmp am (8) Moderate aortic stenosis: Plan: no evidence of complicating CHF (9) Prostate cancer: Plan: history of (10) Dyslipidemia: Plan: statin agent (11) Mass of left lung: Plan: Left lung. present for several years but gradually enlarging. will need pulmonary f/u for this as well as his COVID. will inform pt about the mass before his hospital d/c. (12) DVT prophylaxis: Plan: lovenox 0.5 mg/kg subcu every 12 Plan: insomnia - melatonin PT consult requested to ensure safe for home at d/c updated pt's by phone again this evening, questions answered, reassurance given that he is making slow yet steady progress Admission and Anticipated Discharge Date Admission Date: March 10, 2021 Subjective no events overnight feels the same as yesterday no new complaints anxious to get home denies any pulmonary symptoms still no bowel movement we talked today about his yaya and how it can help him through his illness & recovery Review of Systems Review of Systems: gen - no fevers/chills; fatigue present; eating fair at best CV - no chest pain pulm - no cough, wheeze, dyspnea GI - ongoing constipation w/o nausea or emesis Physical Exam Physical Exam: gen - NAD, restricted affect mouth - MMM neck - no JVD heart - RRR, s1 s2, 2-3/6 systolic murmur RUSB lungs - scantl rales bases, decreased BS bases, no wheeze abd - soft NT BS+; mild distension ext - no edema vasc - pulses feet 2+ b/l psych - a/o x3, restricted affect Results & Data Results & Data ([facility]) Vital Signs (Past 12 Hours) Vital Signs Temp Pulse Resp BP Pulse Ox 03/19/21 15:33 36.8 C 67 16 140/72 95 Laboratory Results Laboratory Results - last 24 hr 03/19/21 03/19/21 03/19/21 08:14 08:14 08:17 Sodium 138 Potassium 4.4 Chloride 104 Carbon Dioxide 27 Anion Gap 7.0 BUN 48 H Creatinine 1.65 H Est Cr Clr Drug Dosing 40.1 Est GFR ( Amer) 44.1 Est GFR (Non-Af Amer) 38.1 BUN/Creatinine Ratio 29.2 H Glucose 91 POC Glucose 88 Estimat Average Glucose 200 Hemoglobin A1c 8.6 H Calcium 9.2 03/19/21 03/19/21 03/19/21 12:17 17:12 20:32 Sodium Potassium Chloride Carbon Dioxide Anion Gap BUN Creatinine Est Cr Clr Drug Dosing Est GFR ( Amer) Est GFR (Non-Af Amer) BUN/Creatinine Ratio Glucose POC Glucose 191 H 223 H 239 H Estimat Average Glucose Hemoglobin A1c Calcium Diagnostic Findings Chest CTA 03/19/21 13:19 CT angio chest PE protocol INDICATION: [place] ^2:15 COVID ^COVID-19 pneumonia, persistent hypoxia; eval PE. TECHNIQUE: Multidetector row helical CT of the chest was performed. Coronal and sagittal reformations were obtained. Automated dose lowering techniques and/or adjustment according to patient size were utilized for this exam. Comparison: Comparison is made to CT abdomen and pelvis 03/26/2015 FINDINGS: Lungs and pleura: Bilateral atelectasis and groundglass opacities are seen, present in multiple lobes. There is a left pleural-based mass measuring 49 x 23 mm with adjacent calcifications. Heart and pericardium: Cardiomegaly is seen with biatrial enlargement. Vessels: No evidence of pulmonary embolism. Mediastinum and naina: Unremarkable. Chest wall and lower neck: Unremarkable. Abdomen: Unremarkable. Bones: Degenerative changes in the thoracic spine. IMPRESSION: 1. No evidence of pulmonary embolism. 2. Multifocal groundglass opacities compatible with history of viral pneumonia. 3. Left pleural-based mass with adjacent calcifications has slowly increased in size from 2014. ACT 112: Negative or not required by law. Electronically signed by: Darinel Bond M.D. 03/19/2021 2:31 PM PG Care Time/CCT Total # of Minutes Spent Total Time Spent with Patient: Total time spent is greater than 50% in coordination of care (as documented) at patient's floor/unit and/or counseling patient: Coding Level of Care Code 25676 Subseq Hosp Care Lvl 2 Diagnoses Pneumonia due to COVID-19 virus U07.1; J12.82 Acute respiratory failure with hypoxia J96.01 ALLISON (acute kidney injury) N17.9 Hyperglycemia R73.9 Hyponatremia E87.1 Presence of drug-eluting stent in left circumflex coronary artery Z95.5 CKD (chronic kidney disease) N18.9 Moderate aortic stenosis I35.0 Prostate cancer C61 Dyslipidemia E78.5 DVT prophylaxis Z29.9 Mass of left lung R91.8
[2021-03-20] MEDS: amLODIPine BESYLATE 5 MG TAB PO SCH (07:33)
[2021-03-20] MEDS: ISOSORBIDE MONO EXTENDED REL 60 MG TABCR PO SCH (07:34)
[2021-03-20] MEDS: ASCORBIC ACID 500 MG TAB PO SCH (07:34)
[2021-03-20] MEDS: CLOPIDOGREL BISULFATE 75 MG TAB PO SCH (07:34)
[2021-03-20] MEDS: ROSUVASTATIN CALCIUM 20 MG TAB PO SCH (07:34)
[2021-03-20] MEDS: TOCOPHERYL, DL-ALPHA 100 UNITS CAP PO SCH (07:35)
[2021-03-20] MEDS: dexAMETHasone 6 MG in SYRINGE 0 ML IV SCH (07:35)
[2021-03-20] MEDS: RANOLAZINE 500 MG ER TAB PO SCH ×2 (07:35→20:53)
[2021-03-20] MEDS: ATENOLOL 50 MG TABLET PO SCH (07:36)
[2021-03-20] MEDS: FLUTICASONE PROPIONATE NA SPR 16 GM BTL SCH (07:36)
[2021-03-20] MEDS: ENOXAPARIN INJ 60 MG/0.6 ML SYR SQ SCH ×2 (07:36→20:52)
[2021-03-20] MEDS: POLYETHYLENE (MIRALAX) 17 GM PACK PO SCH ×2 (07:37→20:55)
[2021-03-20 08:33] LABS: BUN Creatinine Ratio 26.2 (10-20); Creatinine Clr Calc Pharmacy 44.4 ml/min; Est GFR (African American) 49.9 ml/min; Est GFR (Non-African American) 43.1 ml/min; Potassium 4.6 mmol/L (3.5-5.1)
[2021-03-20] MEDS ORDERED: INSULIN HUMAN NPH SC SCH (09:00)
[2021-03-20] MEDS: INSULIN ASPART 100 UNITS/ML 3 ML PEN SC SCH ×4 (09:15→20:53)
[2021-03-20] MEDS ORDERED: SODIUM CHLORIDE 0.65% NA SOLN 45 ML (OCEAN) PRN (11:38)
[2021-03-20] MEDS ORDERED: bisacodyL 10 MG SUPP PR STA ×2 (11:38→12:47)
[2021-03-20] MEDS ORDERED: SOD PHOSPHATE/SOD BIPHOSPHATE ENEMA 132 ML BTL PR PRN (12:47)
--- NOTE | 2021-03-20 15:25 | Pharmacy Report ---
Pharmacy Glycemic Short Note 2 - Date of Service March 20, 2021 - Glycemic Short BSG Results (Last 24 hours): 03/19/21 03/19/21 03/20/21 17:12 20:32 06:24 Glucose 78 POC Glucose 223 H 239 H 03/20/21 03/20/21 08:22 12:02 Glucose POC Glucose 76 201 H OUTPATIENT ANTIDIABETIC REGIMEN: * N/A ASSESSMENT: 03/20: * Patient received total of 124 units of insulin yesterday; 60 units NPH + 64 units Novolog bolus. * Lantus was discontinued yesterday. * Patient's BSG trended up above 200 last night. But, fasting BSG was 76 mg/dl this AM. * NPH insulin reduced this AM. But Novolog CF/CR tightened with breakfast, lunch and dinner and loosened at HS. This will hopefully get the post prandial BSGs down but improve the fasting BSG. 03/19 * Patient's blood sugars yesterday were [phone] mg/dL. * Fasting today is 88 mg/dL. * Patient received 105 units of insulin (60 units of basal with 10 units of Lantus and 50 units of NPH and 45 units of bolus) yesterday. * Due to decreasing fasting BSGs, d/c Lantus. Increase NPH to 60 units as patient's BSGs still trended upwards * Continue Novolog. May eventually tighten CR. Background * Mr Arora is an 80 y/o M admitted with COVID19. He is not on diabetic medications at home. HbA1C ordered. * Yesterday patient's BSGs were [phone] and overnight were 147-108 mg/dL. Fasting is 121 mg/dL. * Patient received a total of 89 units of insulin (50 units of basal with 10 units of Lantus and 40 units of NPH) and 39 units of bolus. * Increase NPH by 20% to 50 units. Tighten CR since BSGs trend upwards throughout the day. * Fasting stable so continue NPH. PLAN FOR INPATIENT GLYCEMIC CONTROL: * Basal insulin: Decreased * Lantus- d/c * NPH 50 units QAM with IV Decadron * Bolus insulin: Tightened CF/CR with breakfast, lunch, dinner and loosened at HS * NovoLog per scale ACHS or Q6hrs while NPO * Goal Range: Low 110 mg/dL - High 140 mg/dL * Correction Factor: 10 mg/dL/unit at B/L/D and 25 mg/dl/unit at HS * Nutritional / Prandial insulin per carb ratio of 1 unit per 2 grams CHO consumed at B/L/D and CR- 1:8 at HS PLAN FOR DISCHARGE: * HbA1C = 8.6% which is above goal of < 8% for patient. * Recommendations TBD once discharge plans are set.
[2021-03-20] MEDS: MELATONIN 3 MG TAB PO SCH (20:52)
--- NOTE | 2021-03-20 21:39 | Hospitalist Progress Note ---
Date of Service March 20, 2021 Assessment & Plan (1) Pneumonia due to COVID-19 virus: Plan: mod-severe. peak O2 requirements 10 L NC. slowly improving. now down to 9 L. day #1 of illness - 03/07/21 completed 10-day course of dexamethasone completed 5-day course of Remdesivir 03/14 no CTA evidence of PE no complicating CHF or bacterial superinfection to date cont pulm toilet prone or side position if possible when in bed PT consult appreciated; cleared for home DVT proph w/ lovenox BID (2) Acute respiratory failure with hypoxia: Plan: 2nd to #1 above slow improvement cont supportive care (3) ALLISON (acute kidney injury): Plan: peak Cr was 1.9 on admission most recent Cr 1.4 BMP am (4) Hyperglycemia: Plan: dx - T2DM, uncontrolled; appears to be new Dx for him pharmacy managing a1c 8.6% labile BSGs due to steroids, stress of illness, etc. 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 Continue atenolol 50, Plavix 75, isosorbide 120, Ranexa 500 twice daily, rosuvastatin 40mg daily. No issues, no ischemic symptoms. (7) CKD (chronic kidney disease): Plan: baseline CrCl c/w STAGE 3b Cr 1.4 today received modest IV fluids overnight for contrast excretion from CTA (8) Moderate aortic stenosis: Plan: no evidence of complicating CHF (9) Prostate cancer: Plan: history of (10) Dyslipidemia: Plan: statin agent (11) Mass of left lung: Plan: Left lung. present for several years but gradually enlarging. will need pulmonary f/u for this as well as his COVID. will inform pt about the mass before his hospital d/c. (12) DVT prophylaxis: Plan: lovenox 0.5 mg/kg subcu every 12 Plan: insomnia - melatonin ?developing depression - consider antidepressant PT consult appreciated -- cleared for home updated pt's by phone yesterday evening Admission and Anticipated Discharge Date Admission Date: March 10, 2021 Subjective only issue is that of ongoing constipation no BM in 5+ days appetite remains fair at best I weaned him to 9 L O2 yesterday and he has been able to maintain his O2 sats on this Review of Systems Review of Systems: gen - fatigue, mild loss of appetite CV - no chest pain pulm - no cough, no MASSEY GI - constipation only; no nausea - no issues, voiding fine Physical Exam Physical Exam: gen - NAD, looks tired today mouth - MMM neck - no JVD heart - RRR, s1 s2, 2-3/6 systolic murmur RUSB lungs - minimal rales bases, decreased BS bases abd - soft NT BS+; mild distension remains ext - no edema psych - a/o x3, restricted affect Results & Data Results & Data ([facility]) Vital Signs (Past 12 Hours) Vital Signs Temp Pulse Resp BP Pulse Ox 03/20/21 21:00 92 03/20/21 19:20 94 03/20/21 16:03 94 03/20/21 15:27 36.2 C L 71 16 109/61 90 Laboratory Results Laboratory Results - last 24 hr 03/20/21 03/20/21 03/20/21 06:24 08:22 12:02 Sodium 138 Potassium 4.6 Chloride 105 Carbon Dioxide 28 Anion Gap 6.0 BUN 39 H Creatinine 1.49 H Est Cr Clr Drug Dosing 44.4 Est GFR ( Amer) 49.9 Est GFR (Non-Af Amer) 43.1 BUN/Creatinine Ratio 26.2 H Glucose 78 POC Glucose 76 201 H Calcium 9.0 03/20/21 03/20/21 17:16 20:43 Sodium Potassium Chloride Carbon Dioxide Anion Gap BUN Creatinine Est Cr Clr Drug Dosing Est GFR ( Amer) Est GFR (Non-Af Amer) BUN/Creatinine Ratio Glucose POC Glucose 204 H 185 H Calcium PG Care Time/CCT Total # of Minutes Spent Total Time Spent with Patient: Total time spent is greater than 50% in coor dination of care (as documented) at patient's floor/unit and/or counseling patient: Coding Level of Care Code 38664 Subseq Hosp Care Lvl 2 Diagnoses Pneumonia due to COVID-19 virus U07.1; J12.82 Acute respiratory failure with hypoxia J96.01 ALLISON (acute kidney injury) N17.9 Hyperglycemia R73.9 Hyponatremia E87.1 Presence of drug-eluting stent in left circumflex coronary artery Z95.5 CKD (chronic kidney disease) N18.9 Moderate aortic stenosis I35.0 Prostate cancer C61 Dyslipidemia E78.5 DVT prophylaxis Z29.9 Mass of left lung R91.8
[2021-03-21] MEDS: ASCORBIC ACID 500 MG TAB PO SCH (07:31)
[2021-03-21] MEDS: ROSUVASTATIN CALCIUM 20 MG TAB PO SCH (07:31)
[2021-03-21] MEDS: TOCOPHERYL, DL-ALPHA 100 UNITS CAP PO SCH (07:31)
[2021-03-21] MEDS: POLYETHYLENE (MIRALAX) 17 GM PACK PO SCH ×2 (07:31→20:42)
[2021-03-21] MEDS: ENOXAPARIN INJ 60 MG/0.6 ML SYR SQ SCH ×2 (07:32→21:13)
[2021-03-21] MEDS: FLUTICASONE PROPIONATE NA SPR 16 GM BTL SCH (07:32)
[2021-03-21] MEDS: amLODIPine BESYLATE 5 MG TAB PO SCH (07:32)
[2021-03-21] MEDS: CLOPIDOGREL BISULFATE 75 MG TAB PO SCH (07:33)
[2021-03-21] MEDS: RANOLAZINE 500 MG ER TAB PO SCH ×2 (07:33→21:13)
[2021-03-21] MEDS: ATENOLOL 50 MG TABLET PO SCH (07:33)
[2021-03-21] MEDS: ISOSORBIDE MONO EXTENDED REL 60 MG TABCR PO SCH (07:33)
[2021-03-21] MEDS ORDERED: INSULIN HUMAN NPH SC ONE ×2 (08:30→09:00)
[2021-03-21] MEDS: INSULIN ASPART 100 UNITS/ML 3 ML PEN SC SCH ×4 (09:14→21:12)
--- NOTE | 2021-03-21 15:18 | Pharmacy Report ---
Pharmacy Glycemic Short Note 2 - Date of Service March 21, 2021 - Glycemic Short BSG Results (Last 24 hours): 03/20/21 03/20/21 03/21/21 17:16 20:43 08:19 POC Glucose 204 H 185 H 73 03/21/21 12:25 POC Glucose 218 H OUTPATIENT ANTIDIABETIC REGIMEN: * N/A ASSESSMENT: 03/21: * Patient received total 128 units of insulin yesterday; 50 units NPH + 78 units Novolog bolus. * Fasting BSG today was 73 mg/dl. Lower dose of NPH 10 units given this AM. * Pre-lunch BSG up to 218 mg/dl. Novolog CR tightened. Expect BSGs to trend down this evening. * Will need to re-assess basal insulin tomorrow. 03/20: * Patient received total of 124 units of insulin yesterday; 60 units NPH + 64 units Novolog bolus. * Lantus was discontinued yesterday. * Patient's BSG trended up above 200 last night. But, fasting BSG was 76 mg/dl this AM. * NPH insulin reduced this AM. But Novolog CF/CR tightened with breakfast, lunch and dinner and loosened at HS. This will hopefully get the post prandial BSGs down but improve the fasting BSG. 03/19 * Patient's blood sugars yesterday were [phone] mg/dL. * Fasting today is 88 mg/dL. * Patient received 105 units of insulin (60 units of basal with 10 units of Lantus and 50 units of NPH and 45 units of bolus) yesterday. * Due to decreasing fasting BSGs, d/c Lantus. Increase NPH to 60 units as patient's BSGs still trended upwards * Continue Novolog. May eventually tighten CR. Background * Mr Arora is an 80 y/o M admitted with COVID19. He is not on diabetic medications at home. HbA1C ordered. * Yesterday patient's BSGs were [phone] and overnight were 147-108 mg/dL. Fasting is 121 mg/dL. * Patient received a total of 89 units of insulin (50 units of basal with 10 units of Lantus and 40 units of NPH) and 39 units of bolus. * Increase NPH by 20% to 50 units. Tighten CR since BSGs trend upwards throughout the day. * Fasting stable so continue NPH. PLAN FOR INPATIENT GLYCEMIC CONTROL: * Basal insulin: Decrease * NPH 10 units x1 today AM since IV steroid discontinued. Re-assess tomorrow * Bolus insulin: * NovoLog per scale ACHS or Q6hrs while NPO * Goal Range: Low 110 mg/dL - High 140 mg/dL * Correction Factor: 15 mg/dL/unit at B/L/D and 25 mg/dl/unit at HS * Nutritional / Prandial insulin per carb ratio of 1 unit per 5 grams CHO consumed at B/L/D and CR- 1:8 at HS PLAN FOR DISCHARGE: * HbA1C = 8.6% which is above goal of < 8% for patient. * Recommendations TBD once discharge plans are set.
--- NOTE | 2021-03-21 15:51 | Pharmacy Report ---
Pharmacy Glycemic Short Note 2 - Date of Service March 21, 2021 - Glycemic Short BSG Results (Last 24 hours): 03/20/21 03/20/21 03/21/21 17:16 20:43 08:19 POC Glucose 204 H 185 H 73 03/21/21 12:25 POC Glucose 218 H OUTPATIENT ANTIDIABETIC REGIMEN: * N/A ASSESSMENT: 03/21: * Patient received total of 128 units of insulin yesterday; 50 units NPH + 78 units Novolog bolus. * Decadron IV was discontinued last night. Patient should require much less of NPH insulin. * Lower dose of NPH given this AM. Novolog 03/20: * Patient received total of 124 units of insulin yesterday; 60 units NPH + 64 units Novolog bolus. * Lantus was discontinued yesterday. * Patient's BSG trended up above 200 last night. But, fasting BSG was 76 mg/dl this AM. * NPH insulin reduced this AM. But Novolog CF/CR tightened with breakfast, lunch and dinner and loosened at HS. This will hopefully get the post prandial BSGs down but improve the fasting BSG. 03/19 * Patient's blood sugars yesterday were [phone] mg/dL. * Fasting today is 88 mg/dL. * Patient received 105 units of insulin (60 units of basal with 10 units of Lantus and 50 units of NPH and 45 units of bolus) yesterday. * Due to decreasing fasting BSGs, d/c Lantus. Increase NPH to 60 units as patient's BSGs still trended upwards * Continue Novolog. May eventually tighten CR. Background * Mr Arora is an 80 y/o M admitted with COVID19. He is not on diabetic medications at home. HbA1C ordered. * Yesterday patient's BSGs were [phone] and overnight were 147-108 mg/dL. Fasting is 121 mg/dL. * Patient received a total of 89 units of insulin (50 units of basal with 10 units of Lantus and 40 units of NPH) and 39 units of bolus. * Increase NPH by 20% to 50 units. Tighten CR since BSGs trend upwards throughout the day. * Fasting stable so continue NPH. PLAN FOR INPATIENT GLYCEMIC CONTROL: * Basal insulin: Decreased * Lantus- d/c * NPH 50 units QAM with IV Decadron * Bolus insulin: Tightened CF/CR with breakfast, lunch, dinner and loosened at HS * NovoLog per scale ACHS or Q6hrs while NPO * Goal Range: Low 110 mg/dL - High 140 mg/dL * Correction Factor: 10 mg/dL/unit at B/L/D and 25 mg/dl/unit at HS * Nutritional / Prandial insulin per carb ratio of 1 unit per 2 grams CHO consumed at B/L/D and CR- 1:8 at HS PLAN FOR DISCHARGE: * HbA1C = 8.6% which is above goal of < 8% for patient. * Recommendations TBD once discharge plans are set.
--- NOTE | 2021-03-21 20:01 | Hospitalist Progress Note ---
Date of Service March 21, 2021 Assessment & Plan (1) Pneumonia due to COVID-19 virus: Plan: mod-severe. peak O2 requirements 10 L NC. starting to improve quickly now with O2 requirements down to <4 L. day #1 of illness - 03/07/21 completed 10-day course of dexamethasone completed 5-day course of Remdesivir 03/14 no CTA evidence of PE no complicating CHF or bacterial superinfection to date cont pulm toilet PT consult appreciated; cleared for home DVT proph w/ lovenox BID (2) Acute respiratory failure with hypoxia: Plan: 2nd to #1 above improving cont supportive care (3) ALLISON (acute kidney injury): Plan: peak Cr was 1.9 on admission most recent Cr 1.4 BMP am (4) Hyperglycemia: Plan: dx - T2DM, uncontrolled; appears to be new Dx for him pharmacy managing a1c 8.6% labile BSGs due to steroids, stress of illness, etc. 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 Continue atenolol 50, Plavix 75, isosorbide 120, Ranexa 500 twice daily, rosuvastatin 40mg daily. No issues, no ischemic symptoms. (7) CKD (chronic kidney disease): Plan: baseline CrCl c/w STAGE 3b most recent Cr of 1.4 (8) Moderate aortic stenosis: Plan: no evidence of complicating CHF (9) Prostate cancer: Plan: history of (10) Dyslipidemia: Plan: statin agent (11) Mass of left lung: Plan: Left lung. present for several years but gradually enlarging. will need pulmonary f/u for this as well as his COVID. will inform pt about the mass before his hospital d/c. (12) DVT prophylaxis: Plan: lovenox 0.5 mg/kg subcu every 12 Plan: insomnia - melatonin PT consult appreciated -- cleared for home updated pt's this evening; told her hoping for d/c on Thursday Admission and Anticipated Discharge Date Admission Date: March 10, 2021 Subjective pt having a good day O2 has been weaned significantly he had a bowel movement eating better ambulating no dyspnea or other pulmonary symptoms Review of Systems Review of Systems: gen - better energy CV - no chest pain or orthopnea pulm - no cough GI - no pain, nausea or emesis neuro - he states he slept better last pm Physical Exam Physical Exam: gen - NAD, looks great today mouth - MMM neck - no JVD heart - RRR, s1 s2, 2-3/6 systolic murmur RUSB lungs - scant rales bases, otherwise cta b/l abd - soft NT BS+; mild distension resolved ext - no edema psych - a/o x3, affect a bit more full today Results & Data Results & Data ([place]) Vital Signs (Past 12 Hours) Vital Signs Temp Pulse Resp BP Pulse Ox 03/21/21 15:10 36.9 C 67 18 117/68 94 Laboratory Results Laboratory Results - last 24 hr 03/20/21 03/21/21 03/21/21 20:43 08:19 12:25 POC Glucose 185 H 73 218 H 03/21/21 17:12 POC Glucose 145 H PG Care Time/CCT Total # of Minutes Spent Total Time Spent with Patient: Total time spent is greater than 50% in coordination of care (as documented) at patient's floor/unit and/or counseling patient: Coding Level of Care Code 77907 Subseq Hosp Care Lvl 2 Diagnoses Pneumonia due to COVID-19 virus U07.1; J12.82 Acute respiratory failure with hypoxia J96.01 ALLISON (acute kidney injury) N17.9 Hyperglycemia R73.9 Hyponatremia E87.1 Presence of drug-eluting stent in left circumflex coronary artery Z95.5 CKD (chronic kidney disease) N18.9 Moderate aortic stenosis I35.0 Prostate cancer C61 Dyslipidemia E78.5 Mass of left lung R91.8 DVT prophylaxis Z29.9
[2021-03-21] MEDS: MELATONIN 3 MG TAB PO SCH (21:13)
[2021-03-22 07:22] LABS: Hematocrit (blood only) 36.5 % (42-52); Hemoglobin 12.3 g/dL (14.0-18.0); Mean Corpuscular Hgb Conc 33.7 g/dL (32-36); Mean Corpuscular Volume 91.9 fL (80-100); Mean Platelet Volume 11.1 fL (7.4-10.4); Platelet Count 155 K/uL (130-400); RDW Coefficient of Variation 14.1 % (11.5-14.5); RDW Standard Deviation 48.4 fL (36.4-46.3); Red Blood Count 3.97 M/uL (4.7-6.1)
[2021-03-22 07:40] LABS: BUN Creatinine Ratio 22.6 (10-20); Calcium 8.8 mg/dl (8.5-10.1); Creatinine Clr Calc Pharmacy 43.6 ml/min; Est GFR (African American) 48.8 ml/min; Est GFR (Non-African American) 42.1 ml/min; Potassium 4.8 mmol/L (3.5-5.1)
[2021-03-22] MEDS: ENOXAPARIN INJ 60 MG/0.6 ML SYR SQ SCH ×2 (08:53→21:31)
[2021-03-22] MEDS: ISOSORBIDE MONO EXTENDED REL 60 MG TABCR PO SCH (08:54)
[2021-03-22] MEDS: ROSUVASTATIN CALCIUM 20 MG TAB PO SCH (08:54)
[2021-03-22] MEDS: RANOLAZINE 500 MG ER TAB PO SCH ×2 (08:54→21:34)
[2021-03-22] MEDS: CLOPIDOGREL BISULFATE 75 MG TAB PO SCH (08:55)
[2021-03-22] MEDS: TOCOPHERYL, DL-ALPHA 100 UNITS CAP PO SCH (08:55)
[2021-03-22] MEDS: ASCORBIC ACID 500 MG TAB PO SCH (08:55)
[2021-03-22] MEDS: ATENOLOL 50 MG TABLET PO SCH (08:55)
[2021-03-22] MEDS: amLODIPine BESYLATE 5 MG TAB PO SCH (08:55)
[2021-03-22] MEDS: FLUTICASONE PROPIONATE NA SPR 16 GM BTL SCH (09:03)
[2021-03-22] MEDS: INSULIN ASPART 100 UNITS/ML 3 ML PEN SC SCH ×4 (09:06→21:32)
[2021-03-22] MEDS: INSULIN HUMAN NPH SC SCH (09:06)
[2021-03-22] MEDS: POLYETHYLENE (MIRALAX) 17 GM PACK PO SCH ×2 (09:08→21:34)
--- NOTE | 2021-03-22 12:47 | Pharmacy Report ---
Pharmacy Glycemic Short Note 2 - Date of Service March 22, 2021 - Glycemic Short BSG Results (Last 24 hours): 03/21/21 03/21/21 03/22/21 17:12 21:04 06:45 Glucose 87 POC Glucose 145 H 202 H 03/22/21 03/22/21 08:08 12:10 Glucose POC Glucose 80 117 H OUTPATIENT ANTIDIABETIC REGIMEN: * N/A ASSESSMENT: 03/22: * Patient received total of 61 units of insulin yesterday, of which 10 units were NPH * Steroids now discontinued and insulin needs decreasing over last day * Fasting BSG 87 mg/dL this AM - will continue with low dose NPH this AM * Plan to loosen CF/CR more today as I anticipate steroids now worn off 03/21: * Patient received total 128 units of insulin yesterday; 50 units NPH + 78 units Novolog bolus. * Fasting BSG today was 73 mg/dl. Lower dose of NPH 10 units given this AM. * Pre-lunch BSG up to 218 mg/dl. Novolog CR tightened. Expect BSGs to trend down this evening. * Will need to re-assess basal insulin tomorrow. 03/20: * Patient received total of 124 units of insulin yesterday; 60 units NPH + 64 units Novolog bolus. * Lantus was discontinued yesterday. * Patient's BSG trended up above 200 last night. But, fasting BSG was 76 mg/dl this AM. * NPH insulin reduced this AM. But Novolog CF/CR tightened with breakfast, lunch and dinner and loosened at HS. This will hopefully get the post prandial BSGs down but improve the fasting BSG. 03/19 * Patient's blood sugars yesterday were [phone] mg/dL. * Fasting today is 88 mg/dL. * Patient received 105 units of insulin (60 units of basal with 10 units of Lantus and 50 units of NPH and 45 units of bolus) yesterday. * Due to decreasing fasting BSGs, d/c Lantus. Increase NPH to 60 units as patient's BSGs still trended upwards * Continue Novolog. May eventually tighten CR. Background * Mr Arora is an 80 y/o M admitted with COVID19. He is not on diabetic medications at home. HbA1C ordered. * Yesterday patient's BSGs were [phone] and overnight were 147-108 mg/dL. Fasting is 121 mg/dL. * Patient received a total of 89 units of insulin (50 units of basal with 10 units of Lantus and 40 units of NPH) and 39 units of bolus. * Increase NPH by 20% to 50 units. Tighten CR since BSGs trend upwards throughout the day. * Fasting stable so continue NPH. PLAN FOR INPATIENT GLYCEMIC CONTROL: * Basal insulin: * NPH 10 units daily * Bolus insulin: * NovoLog per scale ACHS or Q6hrs while NPO * Goal Range: Low 110 mg/dL - High 140 mg/dL * Correction Factor: 20 mg/dL/unit at B/L/D and 35 mg/dl/unit at HS * Nutritional / Prandial insulin per carb ratio of 1 unit per 7 grams CHO consumed at B/L/D and CR- 1:8 at HS PLAN FOR DISCHARGE: * HbA1C = 8.6% which is above goal of < 8% for patient. * Patient with some renal dysfunction, initiation of metformin is not recommended if eGFR <45 ml/min/1.73m2 * Could consider Januvia as long as no contraindications present (pancreatitis, etc). It is recommended using a reduced dose of 50 mg po once daily for eGFR 30-44 and 25 mg once daily for eGFR less than 30 * Would ensure patient checking blood sugar at least 1x/day at home. Would have patient notify provider if BSG values frequently above/below target range
[2021-03-22] MEDS: OXYMETAZOLINE 0.05% 30 ML BTL SCH ×2 (13:23→21:33)
[2021-03-22] MEDS: MUPIROCIN 2% OINT 22 GM TUBE EXT SCH ×2 (13:26→21:33)
--- NOTE | 2021-03-22 19:46 | Hospitalist Progress Note ---
Date of Service March 22, 2021 Assessment & Plan (1) Epistaxis: Plan: 2nd to 2+ weeks of drying effects of NC O2. If he needs further O2 change cannula to oxymask. This tends to cause less drying. Afrin nasal spray -- 1 spray to R nare BID x 3 days. Bactroban ointment BID for 1 week to both nares. Nasal saline spray prn - use frequently. hold on discharge -- observe for more bleeding. if he re-bleeds - ENT evaluation. (2) Pneumonia due to COVID-19 virus: Plan: mod-severe. peak O2 requirements 10 L NC. O2 nearly weaned off. has made tremendous progress. completed 10-day course of dexamethasone completed 5-day course of Remdesivir 03/14 no CTA evidence of PE no complicating CHF or bacterial superinfection to date cont pulm toilet PT consult appreciated; cleared for home DVT proph w/ lovenox BID; change to PO Xarelto at discharge formal 2-step o2 test tomorrow (3) Acute respiratory failure with hypoxia: Plan: 2nd to #1 above improving/resolving cont supportive care (4) ALLISON (acute kidney injury): Plan: peak Cr was 1.9 on admission most recent Cr 1.4 BMP am (5) Hyperglycemia: Plan: dx - T2DM, uncontrolled; appears to be new Dx for him pharmacy managing a1c 8.6% labile BSGs due to steroids, stress of illness, etc. 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 Continue atenolol 50, Plavix 75, isosorbide 120, Ranexa 500 twice daily, rosuvastatin 40mg daily. No issues, no ischemic symptoms. (8) CKD (chronic kidney disease): Plan: baseline CrCl c/w STAGE 3b most recent Cr of 1.4 (9) Moderate aortic stenosis: Plan: no evidence of complicating CHF (10) Prostate cancer: Plan: history of (11) Dyslipidemia: Plan: statin agent (12) Mass of left lung: Plan: Left lung. present for several years but gradually enlarging. will need pulmonary f/u for this as well as his COVID. (13) DVT prophylaxis: Plan: lovenox 0.5 mg/kg subcu every 12 then Xarelto 10mg daily x 30 days post-d/c Plan: insomnia - melatonin PT consult appreciated -- cleared for home updated pt's this evening; told her hoping for d/c tomorrow (no d/c today because of epistaxis) Admission and Anticipated Discharge Date Admission Date: March 10, 2021 Subjective patient feeling well from the standpoint of his COVID pneumonia no cough no dyspnea however, sometime in the middle of the night, he developed copious nosebleeding from the right nare it has bled on/off since that time he stated "I need to stop picking" anxious to go home - I told him we should observe him to ensure he doesn't have further bleeding; he was not happy about this Review of Systems Review of Systems: gen - no fevers, no chills CV - no chest pain pulm - no cough, no congestion, no dyspnea GI - no abd pain, N/V; constipation resolved Physical Exam Physical Exam: gen - NAD, looks great today nose - old blood in anterior right nare; left nare also with irritation but no blood mouth - MMM neck - no JVD heart - RRR, s1 s2, 2-3/6 systolic murmur RUSB lungs - cta b/l abd - soft NT BS+ ND ext - no edema psych - a/o x3 Results & Data Results & [facility] ([facility]) Vital Signs (Past 12 Hours) Vital Signs Temp Pulse Pulse Pulse Pulse Pulse Resp 03/22/21 14:12 36.4 C L 58 L 16 03/22/21 10:47 85 84 65 74 03/22/21 08:50 64 Resp Resp Resp Resp BP Pulse Ox Pulse Ox 03/22/21 14:12 114/65 92 03/22/21 10:47 18 18 18 18 90 03/22/21 08:50 105/65 Pulse Ox Pulse Ox Pulse Ox 03/22/21 14:12 03/22/21 10:47 86 L 91 90 03/22/21 08:50 Laboratory Results Laboratory Results - last 24 hr 03/21/21 03/22/21 03/22/21 21:04 06:45 06:45 WBC 7.40 RBC 3.97 L Hgb 12.3 L Hct 36.5 L MCV 91.9 MCH 31.0 MCHC 33.7 RDW Std Deviation 48.4 H RDW Coeff of Cody 14.1 Plt Count 155 MPV 11.1 H Sodium 136 Potassium 4.8 Chloride 103 Carbon Dioxide 30 Anion Gap 3.0 BUN 34 H Creatinine 1.52 H Est Cr Clr Drug Dosing 43.6 Est GFR ( Amer) 48.8 Est GFR (Non-Af Amer) 42.1 BUN/Creatinine Ratio 22.6 H Glucose 87 POC Glucose 202 H Calcium 8.8 03/22/21 03/22/21 03/22/21 08:08 12:10 17:20 WBC RBC Hgb Hct MCV MCH MCHC RDW Std Deviation RDW Coeff of Cody Plt Count MPV Sodium Potassium Chloride Carbon Dioxide Anion Gap BUN Creatinine Est Cr Clr Drug Dosing Est GFR ( Amer) Est GFR (Non-Af Amer) BUN/Creatinine Ratio Glucose POC Glucose 80 117 H 89 Calcium PG Care Time/CCT Total # of Minutes Spent Total Time Spent with Patient: Total time spent is greater than 50% in coordination of care (as documented) at patient's floor/unit and/or counseling patient: Coding Level of Care Code 51917 Subseq Hosp Care Lvl 3 Diagnoses Pneumonia due to COVID-19 virus U07.1; J12.82 Acute respiratory failure with hypoxia J96.01 ALLISON (acute kidney injury) N17.9 Hyperglycemia R73.9 Hyponatremia E87.1 Presence of drug-eluting stent in left circumflex coronary artery Z95.5 CKD (chronic kidney disease) N18.9 Moderate aortic stenosis I35.0 Prostate cancer C61 Dyslipidemia E78.5 Mass of left lung R91.8 DVT prophylaxis Z29.9 Epistaxis R04.0
[2021-03-22] MEDS: MELATONIN 3 MG TAB PO SCH (21:33)
[2021-03-22 23:01] VITALS: O2SAT 91
[2021-03-23 07:22] VITALS: BP 129/72; PULSE 56; TEMP 97.7
[2021-03-23 08:20] LABS: BUN Creatinine Ratio 22.2 (10-20); Calcium 9.2 mg/dl (8.5-10.1); Creatinine Clr Calc Pharmacy 43.3 ml/min; Est GFR (African American) 48.4 ml/min; Est GFR (Non-African American) 41.7 ml/min; Hematocrit (blood only) 39.7 % (42-52); Magnesium 2.6 mg/dl (1.8-2.4); Mean Corpuscular Hemoglobin 30.7 pg (25-34); Mean Corpuscular Hgb Conc 32.7 g/dL (32-36); Mean Corpuscular Volume 93.9 fL (80-100); Mean Platelet Volume 11.1 fL (7.4-10.4); Platelet Count 145 K/uL (130-400); Potassium 4.9 mmol/L (3.5-5.1); RDW Coefficient of Variation 14.2 % (11.5-14.5); RDW Standard Deviation 48.6 fL (36.4-46.3); Red Blood Count 4.23 M/uL (4.7-6.1); White Blood Count 6.63 K/uL (4.8-10.8)
[2021-03-23] MEDS: INSULIN ASPART 100 UNITS/ML 3 ML PEN SC SCH ×2 (09:17→14:08)
[2021-03-23] MEDS: ATENOLOL 50 MG TABLET PO SCH (09:21)
[2021-03-23] MEDS: MUPIROCIN 2% OINT 22 GM TUBE EXT SCH (09:25)
[2021-03-23] MEDS: POLYETHYLENE (MIRALAX) 17 GM PACK PO SCH (09:25)
[2021-03-23] MEDS: FLUTICASONE PROPIONATE NA SPR 16 GM BTL SCH (09:26)
[2021-03-23] MEDS: OXYMETAZOLINE 0.05% 30 ML BTL SCH (09:26)
[2021-03-23] MEDS: TOCOPHERYL, DL-ALPHA 100 UNITS CAP PO SCH (09:28)
[2021-03-23] MEDS: ASCORBIC ACID 500 MG TAB PO SCH (09:28)
[2021-03-23] MEDS: CLOPIDOGREL BISULFATE 75 MG TAB PO SCH (09:28)
[2021-03-23] MEDS: amLODIPine BESYLATE 5 MG TAB PO SCH (09:28)
[2021-03-23] MEDS: ROSUVASTATIN CALCIUM 20 MG TAB PO SCH (09:29)
[2021-03-23] MEDS: ISOSORBIDE MONO EXTENDED REL 60 MG TABCR PO SCH (09:29)
[2021-03-23] MEDS: RANOLAZINE 500 MG ER TAB PO SCH (09:29)
[2021-03-23] MEDS: INSULIN HUMAN NPH SC SCH (09:29)
[2021-03-23] MEDS: ENOXAPARIN INJ 60 MG/0.6 ML SYR SQ SCH (09:33)
--- NOTE | 2021-03-23 10:56 | Pharmacy Report ---
Pharmacy Glycemic Sign Off Nt - Date of Service March 23, 2021 - Assessment & Plan ASSESSMENT: * Pharmacy was consulted by Dr Clifford on 03/17/21 for glycemic control and to write orders per [facility] inpatient glycemic control protocol. * Major changes made by pharmacy to antidiabetic regimen include: * Newly diagnosed diabetic per A1c = 8.6% on 03/19/21 * Started SQ basal bolus insulin regimen for baseline DM + NPH for steroid induced hyperglycemia secondary to dexamethasone * BSGs well controlled since dex dc. Tapered insulin and regimen now stable. * Patient has been receiving/requiring ~20 units of insulin per day for adequate glycemic control * BSGs ranging 87-145 mg/dl * Regimen has only required minor adjustments over the past 48hrs to achieve this level of control * Do not anticipate further changes in patient status that would quickly deteriorate glycemic control (i.e. patient to be NPO for upcoming procedure, steroids tapering, starting tube feedings, etc). * Please see recommendations for outpatient antidiabetic regimen below. PLAN FOR INPATIENT GLYCEMIC CONTROL: No changes needed to current regimen. * Continue basal insulin with Lantus 10 units SQ daily in AM * Continue NovoLog per scale ACHS/Q6hrs while NPO * Goal range = 110 140 mg/dl * CF = 20 mg/dl/unit * CR = 1 unit for ever 7 g CHO consumed * At HS ONLY: cf = 35 mg/dl/unit; CR = 8 * Pharmacy is signing off of glycemic consult and will no longer be making adjustments to inpatient regimen. Please feel free to re-consult if needed. Thank you. DISCHARGE RECOMMENDATIONS: * A1c 8.6 % on 03/19/21 * Goal A1c <8% based on age/co-morbidities. * Could consider one of the following agents: * Sulfonylurea: high efficacy, high hypo risk, weight gain, low cost * Thiazolidinedione (TZD): high efficacy, low hypo risk, weight gain, significant side effects (edema, HF, fxs), low cost * Human insulin (NPH or premixed formulations): high efficacy, weight gain, minimal side effects * Support Patient Self-Management * Healthy Lifestyle (diet, exercise, and smoking cessation) * Disease self-management (SMBG) * Prevention of complications (BP, Lipid goals, Immunizations) * Consider outpatient Diabetes Self-Management Education & Support
--- NOTE | 2021-03-23 15:10 | Discharge Summary ---
Date of Service date of admission - March 10, 2021 date of discharge - March 23, 2021 Admission HPI Per Admitting Provider 80-year-old male presents to our facility with hypoxic respiratory failure and Covid positive status with pneumonia changes on chest x-ray. Patient symptoms f irst began on , March 07. He does have alterations of taste or smell and did have 2 days of diarrhea now resolving. He and his are not vaccinated. is not having symptoms at this time. would not disclose where he feels he came in contact with Covid He is a known history of coronary disease with both CABG and drug-eluting stents. He has moderate aortic stenosis. He has diagnosis of stable angina has not taken any nitro for some time. Principal Diagnosis acute hypoxic respiratory failure 2nd to COVID-19 pneumonia Discharge Exam gen - NAD, looks good nose - old blood in anterior right nare but no active bleeding mouth - MMM neck - no JVD heart - RRR, s1 s2, 2-3/6 systolic murmur RUSB lungs - cta b/l abd - soft NT BS+ ND ext - no edema psych - a/o x3 Discharge Data Allergies Allergy/AdvReac Type Severity Reaction Status Date / Time No Known Allergies Allergy Unknown Verified 03/10/21 14:29 Consultations PT Diabetes Education Procedures Performed Ambulatory 2-step O2 test -- no O2 needed at rest, 2 liters of NC O2 with activity Ordered Studies Chest X-Ray 03/10/21 14:01 SINGLE VIEW CHEST CLINICAL HISTORY: Atypical chest pain. FINDINGS: An AP, portable, upright chest radiograph is compared to study dated 10/20/2015. The the patient is status post midline sternotomy. The heart is enlarged noting atherosclerotic calcification of the thoracic aorta. There is pulmonary vascular congestion. There are bilateral airspace opacities with a lower lobe predominance. Chronic elevation of the right hemidiaphragm is similar to previous. No large pleural effusion or pneumothorax is seen. The skeletal structures are osteopenic. The bony thorax is grossly intact. Calcific tendinopathy is noted in the right shoulder. IMPRESSION: 1. Cardiomegaly with pulmonary vascular congestion. 2. Bilateral airspace opacities could represent pulmonary edema and/or multifocal pneumonia. Clinical correlation will be required and radiographic follow-up to resolution is recommended. ACT 112: Negative or not required by law. Electronically signed by: Chan Brantley M.D. 03/10/2021 2:31 PM Chest X-Ray 03/13/21 07:36 XR chest 1V portable HISTORY: 80 years-old Male covid pneumonia acute shortness of breath with reported pneumonia COMPARISON: Chest radiograph 03/10/2021 TECHNIQUE: AP view of the chest FINDINGS: Cardiac silhouette is enlarged. Prior median sternotomy. Pulmonary vascular congestion Surgical project over the left suprahilar distribution. Calcified plaque of the thoracic aorta. Unchanged right hemidiaphragmatic elevation. Trace pleural effusions. No pneumothorax. Interstitial coarsening with patchy bilateral airspace opacities appear generally stable from comparison with mildly improved aeration of the lung bases. Surgical clips of the epigastric distribution. Degenerative changes of the shoulders and spine. IMPRESSION: 1. Cardiomegaly with decreased pulmonary vascular congestion. 2. Persistent bilateral mixed interstitial and alveolar opacities suggestive of multifocal pneumonia. 2. Trace pleural effusions. ACT 112: Negative or not required by law. The above report was generated using voice recognition software. It may contain grammatical, syntax or spelling errors. Electronically signed by: Villa Deleon M.D. 03/13/2021 8:00 AM Chest X-Ray 03/16/21 14:52 XR chest 1V portable INDICATION: [place] ^Y ^covid, hypoxia. TECHNIQUE: Single frontal radiograph of the chest was obtained. Comparison: Comparison is made to chest one view 03/13/2021 FINDINGS: Median sternotomy wires and postsurgical changes are unremarkable. The cardiomediastinal silhouette is stable. The demonstration multifocal airspace opacities. No evidence of pleural effusion or pneumothorax. IMPRESSION: Multiple airspace opacities, stable to minimally improved from prior exam, compatible with history of viral pneumonia. ACT 112: Negative or not required by law. Electronically signed by: Darinel Bond M.D. 03/16/2021 3:16 PM Chest CTA 03/19/21 13:19 CT angio chest PE protocol INDICATION: MN ^2:15 COVID ^COVID-19 pneumonia, persistent hypoxia; eval PE. TECHNIQUE: Multidetector row helical CT of the chest was performed. Coronal and sagittal reformations were obtained. Automated dose lowering techniques and/or adjustment according to patient size were utilized for this exam. Comparison: Comparison is made to CT abdomen and pelvis 03/26/2015 FINDINGS: Lungs and pleura: Bilateral atelectasis and groundglass opacities are seen, present in multiple lobes. There is a left pleural-based mass measuring 49 x 23 mm with adjacent calcifications. Heart and pericardium: Cardiomegaly is seen with biatrial enlargement. Vessels: No evidence of pulmonary embolism. Mediastinum and naina: Unremarkable. Chest wall and lower neck: Unremarkable. Abdomen: Unremarkable. Bones: Degenerative changes in the thoracic spine. IMPRESSION: 1. No evidence of pulmonary embolism. 2. Multifocal groundglass opacities compatible with history of viral pneumonia. 3. Left pleural-based mass with adjacent calcifications has slowly increased in size from 2015. ACT 112: Negative or not required by law. Electronically signed by: Darinel Bnod M.D. 03/19/2021 2:31 PM Hospital Course (1) Pneumonia due to COVID-19 virus: mod-severe disease. peak O2 requirements - 10 L NC. day #1 of his illness - 03/07/21. completed 10-day course of dexamethasone while hospitalized. completed 5-day course of Remdesivir on 03/14/21. no CTA evidence of PE. no complicating CHF or bacterial superinfection. DVT proph w/ lovenox BID while hospitalized, then Xarelto 10mg daily x 28 days after discharge. O2 was weaned down, and by day of discharge did NOT need NC O2 at rest but will need 2 L NC O2 with activity. He will f/u with [facility] in light of the severity of his illness along with his O2 requirement at discharge. (2) Acute respiratory failure with hypoxia: 2nd to #1 above (3) ALLISON (acute kidney injury): peak Cr was 1.9 on admission Cr 1.5 on day of discharge (4) Diabetes mellitus type 2, uncontrolled: Pharmacy provided glycemic recommendations while hospitalized Hba1c 8.6% He had labile BSGs due to steroids, stress of illness, etc. while here. Diabetes education provided while hospitalized. He will test his sugars once daily at home, and take metformin 500mg BID with meals. (5) Hyponatremia: resolved (6) Presence of drug-eluting stent in left circumflex coronary artery: Patient with known history of coronary artery disease with both a CABG and drug-eluting stents. Continue atenolol 50, Plavix 75, isosorbide 120, Ranexa 500 twice daily, rosuvastatin 40mg daily. No issues, no ischemic symptoms during the stay. (7) CKD (chronic kidney disease): baseline CrCl c/w STAGE 3b most recent Cr of 1.5 (8) Moderate aortic stenosis: no evidence of complicating CHF (9) Prostate cancer: history of (10) Dyslipidemia: cont statin agent (11) Mass of left lung: Present since at least 2014. Slowly/gradually enlarging over that long time period. This would likely suggest benign etiology. [id number] will need pulmonary f/u for this as well as his COVID. (12) DVT prophylaxis: lovenox 0.5 mg/kg SC every 12 while hospitalized, then Xarelto 10mg once daily x 28 days post-discharge. (13) Epistaxis: 2nd to 2+ weeks of drying effects of NC O2. Advised use of oxymask in denia of NC as this tends to cause less drying. Afrin nasal spray -- 1 spray to R nare BID x 3 days. Bactroban ointment BID for 1 week to both nares. Nasal saline spray prn - use frequently. Following his first nosebleed he was observed in the hospital for an additional 24 hours to ensure no recurrent bleeding. Fortunately he did not have additional epistaxis. (14) Acute constipation: resolved. continue a bowel regimen at home. Seen by physical therapy - cleared for home with his . Total Time Total Time Spent Total Time Spent (In Minutes): 50 Discharge Plan Discharge Items Patient Disposition: Home - Self-Care Reason For Visit: COVID-19 PNEUMONIA Discharge Diagnosis: 1. COVID-19 pneumonia - resolving 2. Type 2 diabetes mellitus 3. Nose bleed from right nostril 4. Constipation - resolved Activity: As commented below Activity Comment: gradually increase your activities over the next 1-2 weeks Exercise/Sports: Wait until after follow-up appointment Driving/Machine Use: would not drive until you see your family doctor Non-emergency contact: Primary Care Provider and Customer Support Professional Call non-emergency contact if: you have any medication questions, your symptoms worsen and you have a fever Follow-up/Referrals: [facility] [[facility] Group] (see [facility] in 2-3 weeks .Office will call patient with appointment date and time) Corky Alves MD [Primary Care Provider] - (see Dr Alves in 5-7 days.Office will call patient with appointment date and time ) Diet: Carb Consistent or DM2 Addtl Attending Provider Instructions: Mr Arora, [facility]. Over the course of your stay you improved with oxygen, steroids, and other treatments. We have weaned the oxygen and at this time you -- * do NOT need oxygen when you are sitting, resting, or sleeping * use 2 liters of oxygen with activity/ambulation * be sure to use the portable oxygen when leaving your home On 03/22/21 you suffered a nose bleed from the right nostril. This resolved with several medicines as outlined below. In addition to the above you now have evidence of type 2 diabetes. Please see the handouts for more information. Your hemoglobin a1c diabetes test was 8.6% (normal is less than 5.8%). See handout on the hemoglobin a1c. Recommendations - 1. for the recent nose bleed - * use saline nasal spray ([id number]) frequently over the next few days to moisten the nasal passages * use mupirocin ointment - twice daily up both nostrils x 7 days; this ointment will moisten the nose * afrin nasal spray (purchase this [id number]) - 1 spray up the RIGHT NOSTRIL twice a day for 2 more days * when using your oxygen at home please use the "oxymask" we provided; this tends not to dry the nose out as much as a standard nasal cannula * when you leave your home you can switch the tubing to a nasal cannula 2. oxygen - * again, no need to use oxygen when at rest, sitting, or sleeping * use 2 liters with activity/ambulation * check your oxygen levels on your finger with a pulse "oximeter" 2-3 times per day * regardless of whether you are sitting or walking around with your oxygen on your oxygen levels on your finger should be 90% or more * if you see that your oxygen levels are consistently less than 90% when you check it please let your family doctor know right away 3. recent pneumonia - continue to use your flutter valve and incentive spirometer for another week or so. 4. blood thinner - COVID-19 infection increases the risk of having blood clots in your legs and lungs. Thus, please take - * XARELTO 10mg once daily for 28 days * samples of this medication were provided * start 03/24/21 * see additional instructions below regarding blood thinners 5. diabetes - * take metformin 500mg twice daily with meals (breakfast & dinner) * most common side effects are stomach upset and loose stools * check your blood sugar once a day * each day please check the blood sugar at different times; for example, on any given day, check it first thing in the morning; the next day check it at bedtime; the next day check it before dinner; and so forth * write your numbers down in a notebook and show these to your family doctor at time of follow-up * prescriptions sent to the [facility] ([facility]) 6. please continue to wear a mask any time you leave your home. 7. obtain your flu shot in 3-4 weeks. 8. strongly consider a COVID vaccine in 3 months. 9. Be sure to not "over do it" once you are home. You likely have several more weeks of recovery ahead. You may be more tired than normal, have mild shortness of breath with activities, etc. It is important to listen to your body during your recovery and rest when needed. 10. follow-up - see separate section Return to [facility] if - * you have fevers over 100 degrees * you have consistently low oxygen levels on your finger less than 90% * you have worsening shortness of breath or chest pains * you have any bleeding issues as noted below because of the blood thinner * any other concerns It was our pleasure to care for you and continue to feel better! -Dr Shantell Daltontl Card Dealer Provider Instructions: Blood thinner medication Instructions: We are sending you home on a low-dose blood thinner ("anticoagulant") for 28 days to help prevent blood clots in your legs and lungs. Your blood thinner is called "XARELTO." * You should take your medication exactly as directed. * Never skip a dose. * Never take a double dose. If you miss a dose, take it as soon as you remember. Call your Primary Care doctor if you experience any of the following: * Swelling or Pain in your leg * Sudden, continuous pain deep in a muscle * Pain that worsens when you are active or when you stand still for a long time * Chest Pain * Sudden Shortness of Breath * Rapid or pounding heart beat * Fainting * Dizziness * Cough with blood or bloody sputum * Sweating more than normal * Bruises * Heavy or uncontrolled bleeding * Blood in your urine, stool or vomit * Black or tarry stools * Severe nose bleeding Caring for Your Self at Home: * Avoid sitting, standing or lying down for long periods without moving your legs and feet Pending Studies at Discharge: No Stand-Alone Forms: My [facility] [employer] Mobile Apps, Smoking Cessation Medications and DC Order Prescriptions: New polyethylene glycol 3350 [Miralax] 17 gram Powder In Packet 17 g PO DAILY Qty: 1 RF: 0 mupirocin 2 % Ointment 1 applic EXT BID Qty: 30 RF: 0 oxymetazoline [Nasal [place] (oxymetazoline)] 0.05 % [place],Non-Aerosol 1 spray intranasal BID Qty: 1 RF: 0 sodium chloride [Saline Mist] 0.65 % Aerosol,[place] 2 spray NA Q1H PRN (Reason: dry nasal passages) Qty: 15 RF: 0 metformin 500 mg tablet 500 mg PO BID Qty: 60 RF: 2 (DME) OneTouch Verio test strips Strip See Rx Instructions .Route Qty: 100 RF: 1 (DME) lancets [OneTouch Delica Lancets] 33 gauge misc See Rx Instructions .Route Qty: 100 RF: 1 (DME) Oxygen Home Liters Per Minute See Rx Instructions .ROUTE .MEDSUPPLY Qty: 1 RF: 0 Xarelto 10 mg tablet 10 mg PO DAILY Qty: 28 RF: 0 Continued fluticasone propionate 50 mcg/actuation spray,suspension 1 sprays intranasal QAM RF: 0 ranolazine 500 mg tablet extended release 12 hr 500 mg PO BID Qty: 180 RF: 3 nitroglycerin 0.4 mg tablet, sublingual 0.4 mg Sublingual UD PRN (Reason: Chest Pain) Qty: 25 RF: 5 vitamin E 200 unit Capsule 200 unit PO QAM RF: 0 ascorbic acid (vitamin C) [Vitamin C] 500 mg Tablet 500 mg PO QAM RF: 0 amlodipine 2.5 mg tablet 2.5 mg PO QAM RF: 0 clopidogrel 75 mg tablet 75 mg PO QAM RF: 0 isosorbide mononitrate 120 mg tablet extended release 24 hr 120 mg PO QAM RF: 0 atenolol 50 mg tablet 50 mg PO QAM RF: 0 rosuvastatin 40 mg tablet 40 mg PO QAM RF: 0 Discharge Orders: Discharge Order (Routine); Ordered 03/23/21 Ordered By: Brendon Swain/Other Patient Handouts: 2019-nCoV, COVID-19 Home Care, Diabetes: Inspecting Your Feet, Diabetes: Caring for Your Body, Diabetes: The Benefits of Exercise, Managing Diabetes: The A1C Test, Blood Sugar Monitoring and ..., Diabetes Exercise Plan, Diabetes Learn Serve Portion Size, Diabetes: Meal Planning, Diabetes Carbs Fats Protein, Taking Medicine for Diabetes, Understanding Type 2 Diabetes Admission Data Admit Date/Time: 03/10/21 17:30 Attending Provider: Brendon Stinson Admit Provider: Darrin Gipson Primary Care Provider: Corky Alves Other Providers: Darrin Gipson Other Interventions: Discharge Summary Assessment (RN) Last Done: 03/23/21 15:09 Coding Level of Care Code D/C DAY MANAGEMENT >30 MINS Diagnoses Pneumonia due to COVID-19 virus U07.1; J12.82 Acute respiratory failure with hypoxia J96.01 ALLISON (acute kidney injury) N17.9 Hyponatremia E87.1 Presence of drug-eluting stent in left circumflex coronary artery Z95.5 CKD (chronic kidney disease) N18.9 Moderate aortic stenosis I35.0 Prostate cancer C61 Dyslipidemia E78.5 Mass of left lung R91.8 DVT prophylaxis Z29.9 Epistaxis R04.0 Diabetes mellitus type 2, uncontrolled E11.65 Acute constipation K59.00
== END 2021-03-23 17:06 | disposition home or self-care (01) | DRG 177 ==
LOC: ED 12:52 → 2E 17:30 → SUATTDRO 17:30 → 2E 18:21 → 3W 03-12 11:39
DX: N17.9 Acute kidney failure, unspecified; Z79.899 Other long term (current) drug therapy; J96.01 Acute respiratory failure with hypoxia; E87.1 Hypo-osmolality and hyponatremia; I35.0 Nonrheumatic aortic (valve) stenosis; U07.1 COVID-19; J12.82 Pneumonia due to coronavirus disease 2019; Z95.1 Presence of aortocoronary bypass graft; E11.22 Type 2 diabetes mellitus with diabetic chronic kidney disease; I25.119 Atherosclerotic heart disease of native coronary artery with unspecified angina pectoris; Z95.5 Presence of coronary angioplasty implant and graft; N18.32 Chronic kidney disease, stage 3b; C61 Malignant neoplasm of prostate; R91.8 Other nonspecific abnormal finding of lung field; R04.0 Epistaxis; E78.5 Hyperlipidemia, unspecified; E11.65 Type 2 diabetes mellitus with hyperglycemia; K59.00 Constipation, unspecified